=== PATIENT | male | born 1940 | race Caucasian/White ===

== ENCOUNTER 2022-06-23 15:45 | Outpatient (RCR) | payer SELFPAY | END 2023-06-14 23:00 | disposition home or self-care (01) | LOC: MOW 15:45 | PROVIDERS: PCP Internal Medicine; Visit Provider Internal Medicine | DX: Z76.0 Encounter for issue of repeat prescription (principal) | CPT/HCPCS: S5170 ==

== ENCOUNTER 2022-08-20 09:02 | Outpatient (CLI) | payer OTHER, SELFPAY | END 2022-08-20 09:03 | disposition home or self-care (01) | LOC: AMB 08-29 10:16 | PROVIDERS: PCP Internal Medicine; Visit Provider Family Medicine | DX: S79.911A Unspecified injury of right hip, initial encounter (principal); W07.XXXA Fall from chair, initial encounter; Y92.001 Dining room of unspecified non-institutional (private) residence as the place of occurrence of the external cause | CPT/HCPCS: A0425; A0429 ==

== ENCOUNTER 2022-08-20 09:52 | Inpatient (IN) | payer OTHER, SELFPAY ==
[2022-08-20] VITALS (32 sets, daily range): BP systolic 113–170; BP diastolic 64–98; PULSE 53–94; RESP 14–19; TEMP 35.9–36.6; O2SAT 79–100; BMI 26.4
--- NOTE | 2022-08-20 10:08 | ED.FALL ---
HPI - Fall General Time Seen by Provider: 10:08 Date Seen: 08/20/22 Chief Complaint: Fall/Minor Trauma Stated Complaint: Fall Time Seen by Provider: 08/20/22 10:08 Source: patient and RN notes reviewed Mode of arrival: ambulatory Limitations: no limitations History of Present Illness HPI Narrative: Patient was brought in by ambulance after a fall. He was transferring from his electric scooter to the table when he fell injuring his right hip/leg area. He states he did not hit his head, no loss of consciousness, no head pain no visual changes, no neck pain. He is not having any chest pain, no difficulty breathing, no abdominal pain. Denies any numbness tingling anywhere. Is he having pain in his right leg which he feels is probably coming from a hip source per his words. No other extremity pain at this time. He states he cannot straighten his leg without significant pain. He had declined medication in the ambulance reportedly but will take some here. Oxycodone is made him sick in the past. We will use IV fentanyl. I have discussed this with him. Related Data Home Medications Medication Instructions Recorded Confirmed furosemide 20 mg tablet (Lasix) 40 mg PO DAILY 08/20/22 08/20/22 tamsulosin 0.4 mg capsule 0.4 mg PO DAILY 08/20/22 08/20/22 Allergies Allergy/AdvReac Type Severity Reaction Status Date / Time No Known Drug Allergies Allergy Verified 08/20/22 09:58 Review of Systems Status of ROS: Reports: 10 or more systems reviewed and unremarkable except as noted in History and below PFSH PFS Social History Smoking Status: Never smoker Do you use any of these nicotine containing products: None Second hand tobacco smoke exposure: No How often do you have a drink containing alcohol: never How often do you have six or more drinks on one occasion: Never AUDIT-C Alcohol total score: 0 Non-prescribed substance use: denies use Exam Const: Vital Signs, click to edit/add: Vital Signs - 24 hr 08/20/22 09:54 08/20/22 10:49 Temperature 97.9 F Pulse Rate [Left P ulse Oximeter] 56 L Respiratory Rate 16 Blood Pressure [Le ft Upper Arm] 157/89 H Pulse Oximetry 99 95 Oxygen Delivery Me thod Room Air Documenting provider has reviewed patient's vital signs: yes Common normals: no apparent distress, average body habitus, oriented x3, no limitations and alert General appearance: cooperative, comfortable and frail appearing HENMT: Common normals: normocephalic, head/scalp atraumatic, hearing grossly normal bilaterally, external ears normal and external nose normal Head and scalp: normocephalic and atraumatic Nose: external nose normal External ear: external ears normal Mouth: moist mucous membranes abnormal (Lips are dry, mucous membranes dry) Eye: Common normals: PERRL, EOMs intact bilaterally, conjunctivae normal and no scleral icterus Conjunctiva: conjunctiva(e) normal Pupil: PERRL Neck & C-Spine: Common normals: full ROM, no lymphadenopathy, supple (Cervical spine nontender), no meningeal signs, no JVD and thyroid normal Thyroid: thyroid normal Chest: Common normals: inspection of chest normal and palpation of chest normal Resp: Common normals: normal respiratory effort, no retractions, no use of accessory muscles and clear to auscultation bilaterally Auscultation: clear to auscultation bilaterally Cardio: Common normals: no JVD, regular rate, regular rhythm, S1 normal heart sound, S2 normal heart sound, no gallops, no clicks, no murmurs and no rub Rate: regular rate Rhythm: regular rhythm Heart sounds: S1 normal and S2 normal Extremity: Other: Holding both knees flexed. There is no swelling about his right knee. He has good symmetric peripheral pulses, has some bruising about the dorsal foot and toes on the left side which he states is old. Any movement of his right extremity gives him pain which he relates back into the hip area. Does palpate with some tenderness over the right greater trochanter area. Does not have pain in his left extremity at this time. Is moving both of his upper extremities without any difficulty. Neuro: Common normals: oriented x3 Sensorium/orientation: alert Meningeal signs: no meningeal signs Course Course Hospital Course: He will be on pulse oximetry monitoring as he will be getting IV narcotics with fentanyl. We will premedicate with Zofran for nausea. He will get x-rays of his right hip and pelvis, will do portable chest as well. We will do appropriate labs, obtain an EKG. It certainly sounds like there is underlying fracture that could be surgical and will proceed in such a manner. Reevaluation(s) Reevaluation #1: Reviewed with patient that he unfortunately does have a hip fracture. I have paged Orthopedics animal waiting a call back. I have reviewed with the patient that in all likelihood this is not going to be surgically corrected today, my guess is that it will be tomorrow but ultimately the decision is with Orthopedics. Patient is having more pain, will order more fentanyl. Time: 11:55 Consultations Consultation #1: Have given Dr. Smith our hospitalist a heads up on the situation. I am still waiting to hear from Orthopedics. Time: 12:08 Consultation #2: Spoke with Varinder from orthopedics, they will plan surgery accordingly. Did review that he had muscular dystrophy and they may want to let anesthesia know. There are no beds to transfer anywhere. Time: 12:21 Vital Signs Vital signs: Initial Vital Signs Temperature 97.9 F 08/20/22 09:54 Temperature Source Temporal Artery Scan 08/20/22 09:54 Pulse Rate 56 L 08/20/22 09:54 Pulse Rhythm 08/20/22 09:54 Pulse Strength 3+ Normal 08/20/22 09:54 Respiratory Rate 16 08/20/22 09:54 Blood Pressure 157/89 H 08/20/22 09:54 Blood Pressure Mean 111 08/20/22 09:54 Pulse Oximetry 99 08/20/22 09:54 Oxygen Delivery Method 08/20/22 09:54 Vital Signs Temperature 97.9 F 08/20/22 09:54 Pulse Rate 56 L 08/20/22 09:54 Respiratory Rate 16 08/20/22 09:54 Blood Pressure 157/89 H 08/20/22 09:54 Pulse Oximetry 99 08/20/22 09:54 Oxygen Delivery Method 08/20/22 09:54 Temperature 97.9 F 08/20/22 09:54 Pulse Rate 56 L 08/20/22 09:54 Respiratory Rate 16 08/20/22 09:54 Blood Pressure 157/89 H 08/20/22 09:54 Pulse Oximetry 95 08/20/22 10:49 Oxygen Delivery Method 08/20/22 09:54 MDM - Fall Lab Data Attestation: I reviewed the patient's lab results. Labs: Lab Results 08/20/22 08/20/22 08/20/22 Range/Units 10:25 10:26 10:26 WBC 7.88 (4.50-11.00) K/uL RBC 4.50 (4.30-5.90) m/uL Hgb 13.9 (13.5-17.5) gm/dL Hct 41.8 (37.0-53.0) % MCV 93 (80-100) fL MCH 31 (26-34) pg MCHC 33 (32-36) gm/dL RDW Coeff of Ruddy 13.2 (11.5-15.5) % Plt Count 191 (140-440) K/uL Neut % (Auto) 58.0 (42.0-72.0) % Lymph % (Auto) 31.9 (20-44) % Dawson % (Auto) 8.6 (0.0-11.0) % Eos % (Auto) 1.1 (0.0-7.0) % Baso % (Auto) 0.3 (0.0-3.0) % Neut # (Auto) 4.57 (1.7-7.0) K/uL Lymph # (Auto) 2.51 (0.90-2.90) K/uL Dawson # (Auto) 0.70 (0.00-0.90) K/UL Eos # (Auto) 0.09 (0.00-0.50) K/uL Baso # (Auto) 0.02 (0.00-0.30) K/uL Abs Immat Gran (auto) 0.01 (0.00-0.30) K/uL Sodium 138 (135-149) mmol/L Potassium 3.6 (3.6-5.1) mmol/L Chloride 105 (96-114) mmol/L Carbon Dioxide 28 (20-32) mmol/L BUN 17 (7-30) mg/dL Creatinine 0.5 (0.5-1.5) mg/dL Estimated Creat Clear 65.47 Estimated GFR 102 ml/min Glucose 124 H (60-115) mg/dL Calcium 9.1 (8.4-10.6) mg/dL Total Bilirubin 0.5 (0.1-1.5) mg/dL AST 30 (12-35) U/L ALT 31 (4-50) U/L Alkaline Phosphatase 104 (40-150) U/L Total Protein 7.0 (6.0-8.3) g/dL Albumin 4.1 (3.3-5.0) g/dL SARS-CoV-2 (PCR) Negative SARS-CoV-2 (Negative) Imaging Data Chest x-ray: Attestation: I have reviewed the pertinent imaging results. My impression: I do not appreciate any acute cardiopulmonary change on this chest x-ray. He does have hardware from surgical correction of the scoliosis seen on my preliminary read. Radiologist's impression: Patient: LIO SPARROW Facility:?[facility] Patient ID:?[id number] Site Patient ID:?[id number]. Site :?[id number] Study:?XRay Chest 1 view supine-08/20/2022 11:24:06 AM Ordering Physician:Ria Garnica Final Report: INDICATION: Trauma COMPARISON: None TECHNIQUE: A single view of the chest was. FINDINGS: TUBES AND LINES: None. HEART AND MEDIASTINUM: The heart size is normal. The mediastinal contour appears normal for patient age. LUNGS AND PLEURAL SPACES: The lungs appear normal.The pleural spaces are unremarkable. OSSEOUS STRUCTURES: Postsurgical changes of the spine. Degenerative changes of the right shoulder. Abnormal left glenohumeral joint. 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 Correlate with acute symptoms in this area to exclude acute on chronic disease. IMPRESSION: 1. No evidence of active pulmonary disease. 2. No definite acute posttraumatic finding. 3. 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 Correlate with any acute symptoms in this area. Dictated by Fox Blackwell MD @ 08/20/2022 11:38:46 AM (Electronic Signature) X-ray right hip: Attestation: I have reviewed the pertinent imaging results. My impression: Acute hip fracture on my preliminary read, wait radiology over-read. Radiologist's impression: Patient: LIO SPARROW Facility:?[facility] Patient ID:?[id number] Site Patient ID:?[id number]. Site :?[id number] Study:?XRay Hip Right 2 VIEW WITH PELVIS-08/20/2022 11:24:25 AM Ordering Physician:Ria Garnica Final Report: Indication: Trauma Technique: An AP view of the pelvis was obtained as well as AP and lateral views of the right hip Comparison: None Findings: The imaging only includes the lower pelvis and the right hip. No acute fracture identified involving the pelvis as visualized. Postoperative changes extending to the sacrum. Mild bilateral hip joint osteoarthritis. Right femoral neck fracture which appears to be slightly impacted and rotated. Impression: Right femoral neck fracture. Dictated by Fox Blackwell MD @ 08/20/2022 11:40:12 AM (Electronic Signature) ECG Data Attestation: I personally reviewed and interpreted this ECG as follows: (Sinus bradycardia with first-degree AV block, 52 beats per minute. QT corrected 472 milliseconds. Significant artifact in V1 and V2.) Critical Care Time Critical Care Time Critical Care Time: No Discharge Plan Discharge Clinical Impression: Fracture of right hip, Fall Patient Disposition: Admitted As Inpatient Condition: Stable Prescriptions: No Action furosemide [Lasix] 20 mg tablet 40 mg PO DAILY tamsulosin 0.4 mg capsule 0.4 mg PO DAILY Follow Up/Referrals: Carlos Cardenas MD [Primary Care Provider] -
--- NOTE | 2022-08-20 10:12 | CRLHL7_ITS ---
For Patients: As a result of the Cures Act, medical imaging exams and procedure reports are released immediately into your electronic medical record. You may view this report before your referring provider. If you have questions, please contact your health care provider. Indication: Trauma Technique: An AP view of the pelvis was obtained as well as AP and lateral views of the right hip Comparison: None Findings: The imaging only includes the lower pelvis and the right hip. No acute fracture identified involving the pelvis as visualized. Postoperative changes extending to the sacrum. Mild bilateral hip joint osteoarthritis. Right femoral neck fracture which appears to be slightly impacted and rotated. Impression: Right femoral neck fracture. Dictated by Fox Blackwell MD @ 08/20/2022 11:40:12 AM (Electronically Signed)
--- NOTE | 2022-08-20 10:13 | CRLHL7_ITS ---
For Patients: As a result of the Century Cures Act, medical imaging exams and procedure reports are released immediately into your electronic medical record. You may view this report before your referring provider. If you have questions, please contact your health care provider. INDICATION: Trauma COMPARISON: None TECHNIQUE: A single view of the chest was. FINDINGS: TUBES AND LINES: None. HEART AND MEDIASTINUM: The heart size is normal. The mediastinal contour appears normal for patient age. LUNGS AND PLEURAL SPACES: The lungs appear normal.The pleural spaces are unremarkable. OSSEOUS STRUCTURES: Postsurgical changes of the spine. Degenerative changes of the right shoulder. Abnormal left glenohumeral joint. 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 Correlate with acute symptoms in this area to exclude acute on chronic disease. IMPRESSION: 1. No evidence of active pulmonary disease. 2. No definite acute posttraumatic finding. 3. 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 Correlate with any acute symptoms in this area. Dictated by Fox Blackwell MD @ 08/20/2022 11:38:46 AM (Electronically Signed)
[2022-08-20 10:36] LABS: Basophils Absolute Auto 0.02 K/uL (0.00-0.30); Basophils Percent Auto 0.3 % (0.0-3.0); Eosinophils Absolute Auto 0.09 K/uL (0.00-0.50); Eosinophils Percent Auto 1.1 % (0.0-7.0); Hematocrit 41.8 % (37.0-53.0); Hemoglobin* 13.9 gm/dL (13.5-17.5); Immature Granulocytes Abs Auto 0.01 K/uL (0.00-0.30); Lymphocytes Absolute Auto 2.51 K/uL (0.90-2.90); Lymphocytes Percent Auto 31.9 % (20-44); Mean Corpuscular HGB Conc 33 gm/dL (32-36); Mean Corpuscular Hemoglobin 31 pg (26-34); Mean Corpuscular Volume 93 fL (80-100); Monocytes Percent Auto 8.6 % (0.0-11.0); Neutrophils Absolute Auto 4.57 K/uL (1.7-7.0); Platelet Count* 191 K/uL (140-440); RDW Coefficient of Variation % 13.2 % (11.5-15.5); White Blood Count* 7.88 K/uL (4.50-11.00)
[2022-08-20 10:38] LABS: Slide Review Reflex No
[2022-08-20] MEDS: fentaNYL 100 MCG/2 ML inj 50 MCG IVP ×2 (10:39→12:18)
[2022-08-20] MEDS: ONDANSETRON 2 MG/ML inj 4 MG IVP (10:39)
[2022-08-20 11:01] LABS: Albumin* 4.1 g/dL (3.3-5.0)
[2022-08-20 11:02] LABS: Chloride* 105 mmol/L (96-114); Potassium* 3.6 mmol/L (3.6-5.1); Sodium* 138 mmol/L (135-149)
[2022-08-20 11:04] LABS: Aspartate Amino Transferase* 30 U/L (12-35); Bilirubin Total* 0.5 mg/dL (0.1-1.5); Carbon Dioxide* 28 mmol/L (20-32); Creatinine* 0.5 mg/dL (0.5-1.5); Est. Creatinine Clearance* 65.47; Estimated Glomerular Filt Rate 102 ml/min
[2022-08-20 11:05] LABS: Alanine Aminotransferase* 31 U/L (4-50); Alkaline Phosphatase* 104 U/L (40-150); Blood Urea Nitrogen* 17 mg/dL (7-30); Calcium* 9.1 mg/dL (8.4-10.6); Glucose* 124 mg/dL (60-115)
[2022-08-20 11:12] LABS: SARS PCR* Negative SARS-CoV-2 (Negative)
--- NOTE | 2022-08-20 12:26 | ED.NURSE ---
Assisted patient to make phone call home.
[2022-08-20] MEDS: HYDROmorphone 0.5 mg/0.5 ml inj IVP ×2 (13:14→14:52)
[2022-08-20] MEDS: LACTATED RINGERS 1000 ML 1,000 ML 500 ML IV (13:21)
[2022-08-20] MEDS: lidocaine HCL 2 % JELLY (TOP) STERILE 6 ML UR (13:21)
[2022-08-20 13:50] LABS: Appearance Urine Clear (Clear); Bilirubin Urine Negative (Negative); Blood Urine Negative (Negative); Color Urine Yellow (Yellow); Glucose Urine Negative (Negative); Ketones Urine Negative (Negative); Leukocyte Esterase Urine Negative (Negative); Nitrite Urine Negative (Negative); Protein Urine Negative (Negative); Specific Gravity Urine 1.025 (1.000-1.030); Urobilinogen Urine 0.2 (0.2-1.0)
[2022-08-20 13:53] LABS: Amorphous Sediment Urine Few; Other Sediment Urine 0; RBC Urine 0-2 (0-2); WBC Urine 0-2 (0-5)
--- NOTE | 2022-08-20 14:38 | P.IMHP_ITS ---
Hospitalist- H&P: HPI History of Present Illness Date Seen: 08/20/22 Chief complaint: Fall Narrative: Roberto Jane is a 82 year old male with muscular dystrophy who presents to the emergency room after a fall this morning. Patient reports he was in his usual state of health when he got up this morning. He was going to breakfast. He had had a cup of coffee, some prune juice and a couple small crackers. He was transferring from his electric wheelchair to sit for breakfast and he fell. He injured his right hip. He is found to have a right femoral neck fracture. He denies any other injury. No loss of consciousness or head injury. Patient has advanced muscular dystrophy. He is able to transfer from chair to chair and bed to chair. He cannot stand on his legs however. He estimates he spends about 90% of his time in his electric wheelchair. He reports otherwise generally feeling healthy and having no other health concerns. Review of Systems Narrative: No other injury, no recent illness. [facility] Medical History (Updated 08/20/22 @ 14:51 by Torres Smith MD) Bladder cancer BPH (benign prostatic hyperplasia) Lower extremity edema Muscular dystrophy Surgical History (Updated 08/20/22 @ 14:46 by Torres Smith MD) History of lumbosacral spine surgery History of nasal septoplasty Social History (Updated 08/20/22 @ 14:47 by Torres Smith MD) Narrative: He lives with his in independent apartment on the [facility]. He does not smoke. History of daily alcohol intake but less than that more recently. 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 Code status is DNR. Smoking Status: Never smoker Do you use any of these nicotine containing products: None Second hand tobacco smoke exposure: No How often do you have a drink containing alcohol: never How often do you have six or more drinks on one occasion: Never AUDIT-C Alcohol total score: 0 Non-prescribed substance use: denies use Meds Home Medications and Allergies Home Medications Medication Instructions Recorded Confirmed Type furosemide 20 mg tablet (Lasix) 40 mg PO DAILY 08/20/22 08/20/22 History tamsulosin 0.4 mg capsule 0.4 mg PO DAILY 08/20/22 08/20/22 History Allergies Allergy/AdvReac Type Severity Reaction Status Date / Time No Known Drug Allergies Allergy Verified 08/20/22 09:58 Exam Narrative: Exam Narrative: He is alert and appears in no distress. He gives his own history. Eyes are normal. Oropharynx with dry mucous membranes. Neck is supple without mass or a denopathy. Respirations are clear to auscultation. Cardiovascular: S1, S2, regular rate and rhythm. No murmur gallop or rub. Abdomen: Bowel sounds active. Abdomen is soft without tenderness or mass. Extremities with intact pulses. No significant edema. No marked malalignment of his lower extremities. Const: Vital Signs, click to edit/add: Vital Signs - 24 hr 08/20/22 09:54 08/20/22 10:49 08/20/22 09:54 Temperature 97.9 F 97.9 F Pulse Rate Pulse Rate [Left P ulse Oximeter] 56 L 56 L Respiratory Rate 16 16 Blood Pressure Blood Pressure [Le ft Upper Arm] 157/89 H 157/89 H Pulse Oximetry 99 95 [facility] 08/20/22 10:48 08/20/22 11:24 08/20/22 11:30 Temperature Pulse Rate 54 L 53 L 56 L Pulse Rate [Left P ulse Oximeter] Respiratory Rate Blood Pressure Blood Pressure [Le ft Upper Arm] Pulse Oximetry 95 97 99 Oxygen Delivery Me od 08/20/22 11:33 08/20/22 12:00 08/20/22 12:03 Temperature Pulse Rate 56 L 54 L Pulse Rate [Left P ulse Oximeter] Respiratory Rate Blood Pressure 163/83 H 166/83 H Blood Pressure [Le ft Upper Arm] Pulse Oximetry 100 98 Oxygen Delivery Hi thod 08/20/22 12:41 08/20/22 13:04 08/20/22 13:09 Temperature Pulse Rate 93 58 L Pulse Rate [Left P ulse Oximeter] Respiratory Rate Blood Pressure 168/82 H Blood Pressure [Le ft Upper Arm] Pulse Oximetry 79 L 97 Oxygen Delivery Hi thod 08/20/22 13:30 08/20/22 13:33 08/20/22 09:59 Temperature Pulse Rate 57 L 61 Pulse Rate [Left P ulse Oximeter] Respiratory Rate Blood Pressure 170/82 H Blood Pressure [Le ft Upper Arm] 167/83 H Pulse Oximetry 97 97 [facility] 08/20/[facility] 10:30 Temperature Pulse Rate Pulse Rate [Left P ulse Oximeter] Respiratory Rate Blood Pressure Blood Pressure [Le ft Upper Arm] 164/73 H Pulse Oximetry Oxygen Delivery Me thod Documenting provider has reviewed patient's vital signs: yes Hospitalist - H&P: Result Labs Labs: Short CBC 08/20/22 Range/Units 10:26 WBC 7.88 (4.50-11.00) K/uL Hgb 13.9 (13.5-17.5) gm/dL Hct 41.8 (37.0-53.0) % Plt Count 191 (140-440) K/uL BMP 08/20/22 10:26 Sodium 138 Potassium 3.6 Chloride 105 Carbon Dioxide 28 BUN 17 Creatinine 0.5 Glucose 124 H Calcium 9.1 Liver Function 08/20/22 Range/Units 10:26 Total Bilirubin 0.5 (0.1-1.5) mg/dL AST 30 (12-35) U/L ALT 31 (4-50) U/L Alkaline Phosphatase 104 (40-150) U/L Albumin 4.1 (3.3-5.0) g/dL Urine 08/20/22 Range/Units 13:35 Urine Color Yellow (Yellow) Urine Appearance Clear (Clear) Urine pH 6.0 (5.0-8.5) Ur Specific [place] 1.025 (1.000-1.030) Urine Protein Negative (Negative) Urine Glucose (UA) Negative (Negative) Assessment and Plan Assessment and plan (1) Fracture of right hip: Problem comment: Pending surgical consult and surgery. No major contraindication to Urgent hip surgery with any type anesthesia Status: Acute (2) Muscular dystrophy: Problem comment: Moderately disabled by his muscular dystrophy. Will need to adapt to this with our rehab plan. Status: Acute (3) BPH (benign prostatic hyperplasia): Problem comment: Patient reports history of urinary retention with previous surgeries. Will place a Rob catheter now and likely will need it for at least a day or 2 after surgery Status: Acute Plan Admit for surgery and recovery. Total time spent today is 70 minutes, 40 minutes in coordination of care and discussing with patient and other providers preop and postop management
--- NOTE | 2022-08-20 15:15 | CRLHL7_ITS ---
For Patients: As a result of the Cures Act, medical imaging exams and procedure reports are released immediately into your electronic medical record. You may view this report before your referring provider. If you have questions, please contact your health care provider. Indication: Bipolar hip Technique: Single fluoroscopic image Comparison: No comparison Findings: Right hip arthroplasty appears in satisfactory position. 29 seconds fluoro time Dictated by Violet Colon MD @ 08/20/2022 7:23:23 PM (Electronically Signed)
[2022-08-20] MEDS: LACTATED RINGERS 1000 ML 1,000 ML 125 ML IV ×2 (15:30→19:28)
[2022-08-20] MEDS: CEFAZOLIN 2 GM in 0.9 % SODIUM CHLORIDE Mini-bag 100 ML IVPB (16:00)
[2022-08-20] MEDS: TRANEXAMIC ACID 100 MG/ML INJ 1000 MG IV (16:05)
--- NOTE | 2022-08-20 16:56 | W.PM.NB ---
Nerve Block Nerve Block Date Seen: 08/20/22 Type of block requested by surgeon for post-operative analgesia: DELANEY/LFCN Side: right Time out performed: Yes Verification of patient name: Yes Verification of date of : Yes Site marking: site marked Name of person performing procedure: Chris Continuous monitoring Was continuous monitoring of O2 sat, B/P, quality assurance monitor chassis, recorded every 15 minutes?: Yes Procedure Checklist: sterile prep, needles and gloves Ultrasound guided. Images saved: Yes Medications given in 5ml increments after negative aspiration: Ropivicaine %: 0.5 mL: 30 Needle gauge: 20 Decadron (mg): 10 Precedex (mcg): 25 Patient tolerated procedure well: Yes Additional comments: Needle noted below psoas tendon needle noted adjacent to LFCN Block Charges Block Charge (with Pro Fee): Other Periph Nerve Block Use of Ultrasound Machine for Block: Yes- US Guidance/pain block
--- NOTE | 2022-08-20 18:10 | P.ORCN_ITS ---
History of Present Illness HPI Date Seen: 08/20/22 Chief complaint: Fall Narrative: Dr. Smith has requested orthopedic consultation for right hip fracture. The patient is an 82-year-old limited ambulator secondary to muscular dystrophy. He spends most of his time in a chair. He is able to do some transfers. He fell landing on his right side, sustaining a displaced femoral neck fracture. He has never injured this hip or had surgery previously. Review of Systems Narrative: The patient denies: Fever, night sweats, shaking chills, nausea, vomiting, diarrhea, chest pain, chest pressure, shortness of breath, no rash, no change in hearing or vision, no issues with bleeding or clotting [facility] Medical History (Updated 08/20/22 @ 14:51 by Torres Smith MD) Bladder cancer BPH (benign prostatic hyperplasia) Lower extremity edema Muscular dystrophy Surgical History (Updated 08/20/22 @ 14:46 by Torres Smith MD) History of lumbosacral spine surgery History of nasal septoplasty Social History (Updated 08/20/22 @ 14:47 by Torres Smith MD) Narrative: He lives with his in independent apartment on the [facility]. He does not smoke. History of daily alcohol intake but less than that more recently. is healthcare power of county attorney. Code status is DNR. Smoking Status: Never smoker Do you use any of these nicotine containing products: None Second hand tobacco smoke exposure: No How often do you have a drink containing alcohol: never How often do you have six or more drinks on one occasion: Never AUDIT-C Alcohol total score: 0 Non-prescribed substance use: denies use Meds Home Medications and Allergies Home Medications Medication Instructions Recorded Confirmed Type furosemide 20 mg tablet (Lasix) 40 mg PO DAILY 08/20/22 08/20/22 History tamsulosin 0.4 mg capsule 0.4 mg PO DAILY 08/20/22 08/20/22 History Allergies Allergy/AdvReac Type Severity Reaction Status Date / Time No Known Drug Allergies Allergy Verified 08/20/22 09:58 Ortho Exam Narrative Exam Narrative: The patient is alert and oriented x3, in no acute distress, they are able to converse in a normal speaking voice without obvious hearing loss and with nonlabored breathing. The patient is examined supine on the hospital cart, in the emergency department. The skin about the right hip is intact and normal. He has some dorsiflexion and plantar flexion to the right ankle. Sensation is grossly intact. Const Vital Signs, click to edit/add: Vital Signs - 24 hr 08/20/22 09:54 08/20/22 10:49 08/20/22 09:54 Temperature 97.9 F 97.9 F Pulse Rate Pulse Rate [Left Pulse Oximeter] 56 L 56 L Respiratory Rate 16 16 Blood Pressure Blood Pressure [Left Upper Arm] 157/89 H 157/89 H Pulse Oximetry 99 95 97 Oxygen Delivery Method Room Air Room Air 08/20/22 10:48 08/20/22 11:24 08/20/22 11:30 Temperature Pulse Rate 54 L 53 L 56 L Pulse Rate [Left Pulse Oximeter] Respiratory Rate Blood Pressure Blood Pressure [Left Upper Arm] Pulse Oximetry 95 97 99 Oxygen Delivery Method 08/20/22 11:33 08/20/22 12:00 08/20/22 12:03 Temperature Pulse Rate 56 L 54 L Pulse Rate [Left Pulse Oximeter] Respiratory Rate Blood Pressure 163/83 H 166/83 H Blood Pressure [Left Upper Arm] Pulse Oximetry 100 98 Oxygen Delivery Method 08/20/22 12:41 08/20/22 13:04 08/20/22 13:09 Temperature Pulse Rate 93 58 L Pulse Rate [Left Pulse Oximeter] Respiratory Rate Blood Pressure 168/82 H Blood Pressure [Left Upper Arm] Pulse Oximetry 79 L 97 Oxygen Delivery Method 08/20/22 13:30 08/20/22 13:33 08/20/22 09:59 Temperature Pulse Rate 57 L 61 Pulse Rate [Left Pulse Oximeter] Respiratory Rate Blood Pressure 170/82 H Blood Pressure [Left Upper Arm] 167/83 H Pulse Oximetry 97 97 Oxygen Delivery Method 08/20/22 10:30 Temperature Pulse Rate Pulse Rate [Left Pulse Oximeter] Respiratory Rate Blood Pressure Blood Pressure [Left Upper Arm] 164/73 H Pulse Oximetry Oxygen Delivery Method Results Labs Labs: Laboratory Results - last 48 hr 08/20/22 08/20/22 08/20/22 10:25 10:26 10:26 WBC 7.88 RBC 4.50 Hgb 13.9 Hct 41.8 MCV 93 MCH 31 MCHC 33 RDW Coeff of Ruddy 13.2 Plt Count 191 Neut % (Auto) 58.0 Lymph % (Auto) 31.9 [place] % (Auto) 8.6 Eos % (Auto) 1.1 Baso % (Auto) 0.3 Neut # (Auto) 4.57 Lymph # (Auto) 2.51 [place] # (Auto) 0.70 Eos # (Auto) 0.09 Baso # (Auto) 0.02 Abs Immat Gran (auto) 0.01 Sodium 138 Potassium 3.6 Chloride 105 Carbon Dioxide 28 BUN 17 Creatinine 0.5 Estimated Creat Clear 65.47 Estimated GFR 102 Glucose 124 H Calcium 9.1 Total Bilirubin 0.5 AST 30 ALT 31 Alkaline Phosphatase 104 Total Protein 7.0 Albumin 4.1 Urine Color Urine Appearance Urine pH Ur Specific [place] Urine Protein Urine Glucose (UA) Urine Ketones Urine Blood Urine Nitrite Urine Bilirubin Urine Urobilinogen Ur Leukocyte Esterase Urine RBC Urine WBC Ur Squamous Epith Cells Amorphous Sediment Other Sediment Urine Bacteria SARS-CoV-2 (PCR) Negative SARS-CoV-2 08/20/22 13:35 WBC RBC Hgb Hct MCV MCH MCHC RDW Coeff of Ruddy Plt Count Neut % (Auto) Lymph % (Auto) [place] % (Auto) Eos % (Auto) Baso % (Auto) Neut # (Auto) Lymph # (Auto) [place] # (Auto) Eos # (Auto) Baso # (Auto) Abs Immat Gran (auto) Sodium Potassium Chloride Carbon Dioxide BUN Creatinine Estimated Creat Clear Estimated GFR Glucose Calcium Total Bilirubin AST ALT Alkaline Phosphatase Total Protein Albumin Urine Color Yellow Urine Appearance Clear Urine pH 6.0 Ur Specific [place] 1.025 Urine Protein Negative Urine Glucose (UA) Negative Urine Ketones Negative Urine Blood Negative Urine Nitrite Negative Urine Bilirubin Negative Urine Urobilinogen 0.2 Ur Leukocyte Esterase Negative Urine RBC 0-2 Urine WBC 0-2 Ur Squamous Epith Cells None Amorphous Sediment Few A Other Sediment 0 Urine Bacteria None SARS-CoV-2 (PCR) Diagnostic results Additional Comments: An AP pelvis, AP and cross-table lateral view of the right hip show a displaced right femoral neck fracture. There is no obvious pathologic lesion. There is no pre-existing hip joint arthritis. Assessment and Plan Assessment and plan (1) Fracture of right hip: Problem comment: Pending surgical consult and surgery. No major contraindication to Urgent hip surgery with any type anesthesia Status: Acute Total time spent: Total time spent is greater than 50% in coordination of care (as documented) at patient's floor/unit and/or counseling patient: (2) Muscular dystrophy: Problem comment: Moderately disabled by his muscular dystrophy. Will need to adapt to this with our rehab plan. Status: Acute Total time spent: Total time spent is greater than 50% in coordination of care (as documented) at patient's floor/unit and/or counseling patient: (3) BPH (benign prostatic hyperplasia): Problem comment: Patient reports history of urinary retention with previous surgeries. Will place a Rob catheter now and likely will need it for at least a day or 2 after surgery Status: Acute Total time spent: Total time spent is greater than 50% in coordination of care (as documented) at patient's floor/unit and/or counseling patient: Plan Assessment: Displaced right femoral neck fracture in an 82-year-old, limited ambulator with muscular dystrophy Plan: I told the patient that his injury is best treated with bipolar hemiarthroplasty. He has been medically cleared for surgery, therefore we will plan to take him to the operating room shortly.
--- NOTE | 2022-08-20 18:13 | P.ORPRC_ITS ---
Procedure Note Date of procedure: 08/20/22 Procedure: SURGEON: Humberto Molina MD HUMAN INSIGHTS LEAD ADS MARKETING: Re Murray PA-C PREOPERATIVE DIAGNOSIS: Right hip displaced femoral neck fracture POSTOPERATIVE DIAGNOSIS: Right hip displaced femoral neck fracture NAME OF OPERATION: Right hip cemented bipolar hemiarthroplasty IMPLANTS: 1. [place] cemented # 6 standard collared cemented stem 2. 28 + 8.5 cobalt chrome femoral head 3. 55 mm bipolar component ANESTHESIA: General ESTIMATED BLOOD LOSS: 100 cc COMPLICATIONS: None SPECIMENS: None DRAINS: None PREOPERATIVE ANTIBIOTICS: Ancef 2 g INDICATIONS: The patient is a 82-year-old male who fell today sustaining a right hip femoral neck fracture. The patient was admitted for workup and management. They have been medically cleared for surgery. Operative intervention was recommended. The risks, benefits and expected outcomes were discussed in detail. These included but were not limited to: Infection, bleeding, injury to blood vessel or nerve, venous thromboembolism. All questions were answered to their satisfaction. Use of an assistant refinery operator was necessary throughout the case for patient positioning and safety, soft tissue retraction and closure. PROCEDURE: General anesthesia was administered. The patient was placed supine on the [place] table. General anesthesia was administered. The assistant refinery operator made sure the patient was properly positioned. The right hip was prepped and draped in the usual sterile fashion. The image intensifier was brought in for a perfect AP pelvis and a perfect double tear drop AP view of each hip which were used for intraoperative templating with our fluoroscopic guide. An oblique incision was made 3 cm distal and 3 cm lateral to the anterior superior iliac spine. The assistant refinery operator retracted the soft tissues to protect them. Subcutaneous dissection was taken with electrocautery to the superficial fascia. The fascia was divided in line with the incision. Blunt dissection was carried medially to the tensor fascia nikki and sartorius interval. Deep dissection was carried with electrocautery. The circumflex vessels were cauterized and divided. The capsule was exposed and then divided in a T- fashion, tagged with #1 Ethibond sutures. Retractors were placed in the joint, held by the assistant refinery operator. The corkscrew was placed in the femoral head. The neck cut was made in the subcapital region. We made a second neck cut more distal. The napkin ring of bone was removed. The femoral head was removed intact. The limb was placed in 140 degrees of external rotation, maximum extension and adduction. A significant amount of time was spent releasing the capsule to allow us to deliver the femur into the wound and complete the femoral side safely. Retractors were held by the assistant refinery operator throughout the femoral preparation. The drawing box tender and canal finder were used. Broaches were used to a stable size. The calcar reamer was used. Trial components were placed. The hip was reduced and was found to be stable with appropriate soft tissue tension. Length and offset had been nicely restored using the image intensifier and our fluoroscopic guide. Trial components removed. The cement restrictor was placed. The canal was irrigated with pulse lavage then thoroughly dried. Cement was placed with the cement gun and hand pressurized. The # 6 [place] cemented stem was placed in the canal. The 28 mm + 8.5 cobalt chrome femoral head and the 55 mm bipolar component were placed. The hip was reduced and again was found to be stable with appropriate soft tissue tension. Leg lengths appear equal. The assistant refinery operator irrigated the wound with 3 liters of normal saline via pulse lavage. The assistant refinery operator repaired the anterior capsule with a #1 Vicryl and our previously placed Ethibond sutures. The assistant refinery operator closed the fascia over the tensor fascia nikki with a #1 PDO Stratafix, subcutaneous tissues with 2-0 Vicryl, skin with a running 3-0 Stratafix and glue. A dry dressing was applied by the assistant refinery operator. Sponge and needle counts were correct x 2. The patient tolerated the procedure well; there were no apparent complications. They were awakened and extubated in the operating room, sent to the Post-Anesthesia Care Unit in satisfactory condition. PLAN: 1. The patient will be mobilized with physical therapy, weight-bearing as tolerates 2. Xarelto x 5 days then aspirin x 30 days will be used for DVT prophylaxis 3. The patient will be discharged once medically appropriate
--- NOTE | 2022-08-20 18:37 | W.ANESCHARGE ---
Anesthesia Charges Start Date/Time Anesthesia Start Date: 08/20/22 Anesthesia Start Time: 15:37 Stop Date/Time Anesthesia Stop Date: 08/20/22 Anesthesia Stop Time: 18:34 Summary Emergency: No Extremes of Age: Over 71-CPT 56703
[2022-08-20] MEDS: fentaNYL 100 MCG/2 ML inj 25 MCG IVP (18:53)
--- NOTE | 2022-08-20 19:21 | CRLHL7_ITS ---
For Patients: As a result of the Cures Act, medical imaging exams and procedure reports are released immediately into your electronic medical record. You may view this report before your referring provider. If you have questions, please contact your health care provider. Indication: Postop Technique: AP pelvis right hip views Comparison: No comparison Findings: Right hip arthroplasty in satisfactory position. Normal alignment postoperative soft tissue gas and swelling. No hardware complications. Dictated by Violet Colon MD @ 08/21/2022 8:48:18 AM (Electronically Signed)
--- NOTE | 2022-08-20 19:25 | SUR.PHASEI ---
patient met discharge criteria per anesthesia
[2022-08-20] MEDS: ACETAMINOPHEN 325 MG TABLET 650 MG PO (21:34)
[2022-08-20] MEDS: SENNOSIDES 1 TAB TABLET 2 TAB PO (21:34)
[2022-08-20] MEDS: LACTATED RINGERS 1000 ML 1,000 ML 75 ML IV (21:45)
[2022-08-21] VITALS (7 sets, daily range): BP systolic 110–161; BP diastolic 53–70; PULSE 62–78; RESP 16–20; TEMP 36.5–37.3; O2SAT 89–94
[2022-08-21] MEDS: CEFAZOLIN 2 GM in 0.9 % SODIUM CHLORIDE Mini-bag 100 ML IVPB ×3 (00:36→16:10)
[2022-08-21] MEDS: ACETAMINOPHEN 325 MG TABLET 650 MG PO ×4 (01:35→20:27)
[2022-08-21 06:42] LABS: Hematocrit 38.9 % (37.0-53.0); Hemoglobin* 12.9 gm/dL (13.5-17.5); Mean Corpuscular HGB Conc 33 gm/dL (32-36); Mean Corpuscular Hemoglobin 31 pg (26-34); Mean Corpuscular Volume 94 fL (80-100); Platelet Count* 177 K/uL (140-440); Red Blood Count 4.16 m/uL (4.30-5.90)
[2022-08-21 06:44] LABS: Slide Review Reflex No
--- NOTE | 2022-08-21 06:48 | PC.NURSE ---
pleasant and cooperative. No c/o pain, pt states he still feels ?numb?, able to wiggle toes. Rob patent and draining, 650mL urine output this shift. ? Reddened [place]area, Nystatin ordered, House Sup unable to find in pharmacy. Pt states he has cream at home he applies when it flares up, he is unsure of the name, he said he will have his bring it in. ? Pt requiring 1L O2 while sleeping to maintain sats >88%.? Dressing to right hip CDI, active ice on. ?
[2022-08-21 06:58] LABS: Potassium* 4.1 mmol/L (3.6-5.1); Sodium* 137 mmol/L (135-149)
[2022-08-21 07:01] LABS: Creatinine* 0.5 mg/dL (0.5-1.5); Est. Creatinine Clearance* 65.47; Estimated Glomerular Filt Rate 102 ml/min
[2022-08-21 07:02] LABS: Blood Urea Nitrogen* 17 mg/dL (7-30)
--- NOTE | 2022-08-21 08:52 | P.ORPN_ITS ---
Subjective Subjective Time Seen by Provider: 08:30 Date Seen: 08/21/22 Principal diagnosis: Day 1 s/p right hip bipolar hemiarthroplasty Interval history: Roberto is doing well this morning and is resting comfortably in bed. He complains of right lower extremity weakness and right hip numbness. Denies right hip pain; pain is well managed with ice, Oxycodone and Tylenol PRN. Denies: fever, chills, chest pain, SOB and numbness/tingling is his feet. Patient was seen by PT this morning however explains they will be returning later today and has not yet been up and moving. Patient's white board states he is non- weightbearing, however according to Dr. Molina Roberto may weightbear as tolerated. Patient has not yet had a bowel movement and reports no flatulence yet. Patient has a strong appetite. *Prior to surgery, Roberto spends 90% of his time in his wheelchair because of his muscular dystrophy. He is able to transfer with assistance bed-chair and chair-chair. Also prior to surgery, Roberto explains he was able to flex his right knee. His complaint of right knee/LE weakness is new since his surgery. Ortho Exam Narrative Exam Narrative: Incision/Dressing: Dressing appears clean and dry. No drainage present. Mepilex intact. Right hip appears moderately swollen but supple with no obvious erythema, fluctuance or excessive warmth. Ecchymosis present. Warmth around the wound is appropriate. Ice is being utilized as needed. CMS: Intact distally with 2+ Dorsalis pedis and Posterior Tibial pulses. 5/5 motor strength dorsal and plantar flexion. Confirmed sensation distally. Patient is unable to straight leg raise. Knee ROM: 0-10 degrees. Calf: Bilateral calves are supple, with no swelling, pain, tenderness, erythema, discoloration or coolness to the touch. Constitutional: Patient is alert and oriented x3. Patient is in no acute distress and converses without labored breathing. Patient is able to make decisions and demonstrates good insight. Patient is pleasant and cooperative. Affect is full range and appropriate for the circumstances. Const Vital Signs, click to edit/add: Vital Signs - 24 hr 08/20/22 09:54 08/20/22 10:49 08/20/22 09:54 Temperature 97.9 F 97.9 F Pulse Rate Pulse Rate [Left Pulse Oximeter] 56 L 56 L Pulse Rate [Right Pulse Oximeter] Respiratory Rate 16 16 Blood Pressure Blood Pressure [Left Arm] Blood Pressure [Left Upper Arm] 157/89 H 157/89 H Pulse Oximetry 99 95 97 Oxygen Delivery Method Room Air Room Air Oxygen Flow Rate 08/20/22 10:48 08/20/22 11:24 08/20/22 11:30 Temperature Pulse Rate 54 L 53 L 56 L Pulse Rate [Left Pulse Oximeter] Pulse Rate [Right Pulse Oximeter] Respiratory Rate Blood Pressure Blood Pressure [Left Arm] Blood Pressure [Left Upper Arm] Pulse Oximetry 95 97 99 Oxygen Delivery Method Oxygen Flow Rate 08/20/22 11:33 08/20/22 12:00 08/20/22 12:03 Temperature Pulse Rate 56 L 54 L Pulse Rate [Left Pulse Oximeter] Pulse Rate [Right Pulse Oximeter] Respiratory Rate Blood Pressure 163/83 H 166/83 H Blood Pressure [Left Arm] Blood Pressure [Left Upper Arm] Pulse Oximetry 100 98 Oxygen Delivery Method Oxygen Flow Rate 08/20/22 12:41 08/20/22 13:04 08/20/22 13:09 Temperature Pulse Rate 93 58 L Pulse Rate [Left Pulse Oximeter] Pulse Rate [Right Pulse Oximeter] Respiratory Rate Blood Pressure 168/82 H Blood Pressure [Left Arm] Blood Pressure [Left Upper Arm] Pulse Oximetry 79 L 97 Oxygen Delivery Method Oxygen Flow Rate 08/20/22 13:30 08/20/22 13:33 08/20/22 09:59 Temperature Pulse Rate 57 L 61 Pulse Rate [Left Pulse Oximeter] Pulse Rate [Right Pulse Oximeter] Respiratory Rate Blood Pressure 170/82 H Blood Pressure [Left Arm] Blood Pressure [Left Upper Arm] 167/83 H Pulse Oximetry 97 97 Oxygen Delivery Method Oxygen Flow Rate 08/20/22 10:30 08/20/22 18:35 08/20/22 18:40 Temperature 97.5 F L 97.5 F L Pulse Rate 71 69 Pulse Rate [Left Pulse Oximeter] Pulse Rate [Right Pulse Oximeter] Respiratory Rate 19 19 Blood Pressure 131/86 143/86 H Blood Pressure [Left Arm] Blood Pressure [Left Upper Arm] 164/73 H Pulse Oximetry 100 100 Oxygen Delivery Method OxyMask Oxygen Flow Rate 6 08/20/22 18:45 08/20/22 18:50 08/20/22 18:55 Temperature 97.5 F L 97.5 F L 97.5 F L Pulse Rate 67 65 60 Pulse Rate [Left Pulse Oximeter] Pulse Rate [Right Pulse Oximeter] Respiratory Rate 16 16 16 Blood Pressure 146/78 H 151/82 H Blood Pressure [Left Arm] Blood Pressure [Left Upper Arm] Pulse Oximetry 100 100 98 Oxygen Delivery Method OxyMask OxyMask Room Air Oxygen Flow Rate 6 6 08/20/22 19:00 08/20/22 19:05 08/20/22 19:16 Temperature 97.5 F L 97.2 F L 96.7 F L Pulse Rate 60 68 63 Pulse Rate [Left Pulse Oximeter] Pulse Rate [Right Pulse Oximeter] Respiratory Rate 16 16 14 Blood Pressure 158/82 H 143/70 H Blood Pressure [Left Arm] Blood Pressure [Left Upper Arm] Pulse Oximetry 94 94 Oxygen Delivery Method Room Air Room Air Room Air Oxygen Flow Rate 6 08/20/22 19:22 08/20/22 19:30 08/20/22 19:45 Temperature 96.7 F L 96.7 F L 96.9 F L Pulse Rate Pulse Rate [Left Pulse Oximeter] Pulse Rate [Right Pulse Oximeter] Respiratory Rate 14 14 14 Blood Pressure Blood Pressure [Left Arm] 156/98 H 161/75 H 137/86 Blood Pressure [Left Upper Arm] Pulse Oximetry 92 93 94 Oxygen Delivery Method Room Air Room Air Room Air Oxygen Flow Rate 2 2 2 08/20/22 20:00 08/20/22 20:30 08/20/22 22:27 Temperature 96.9 F L 96.9 F L Pulse Rate Pulse Rate [Left Pulse Oximeter] Pulse Rate [Right Pulse Oximeter] 94 Respiratory Rate 14 14 14 Blood Pressure Blood Pressure [Left Arm] 154/76 H 132/72 Blood Pressure [Left Upper Arm] Pulse Oximetry 95 94 Oxygen Delivery Method Room Air Room Air Oxygen Flow Rate 2 2 08/21/22 03:00 08/20/22 21:00 08/20/22 22:00 Temperature 97.7 F Pulse Rate Pulse Rate [Left Pulse Oximeter] Pulse Rate [Right Pulse Oximeter] 65 66 Respiratory Rate 16 16 16 Blood Pressure Blood Pressure [Left Arm] 110/62 122/67 143/75 H Blood Pressure [Left Upper Arm] Pulse Oximetry 94 94 90 Oxygen Delivery Method Room Air Room Air Room Air Oxygen Flow Rate 1 1 1 08/20/22 23:00 08/21/22 00:00 Temperature 97.6 F 97.7 F Pulse Rate Pulse Rate [Left Pulse Oximeter] Pulse Rate [Right Pulse Oximeter] 64 62 Respiratory Rate 16 16 Blood Pressure Blood Pressure [Left Arm] 113/64 114/53 L Blood Pressure [Left Upper Arm] Pulse Oximetry 92 91 Oxygen Delivery Method Room Air Room Air Oxygen Flow Rate 1 1 Assessment and Plan Assessment and plan (1) Fracture of right hip: Problem details: Day 1 s/p right hip bipolar hemiarthroplasty Status: Acute Assessment and Plan: - Complete 23 hour perioperative antibiotics. - PT/OT consults for education and assistance. - Social consult for discharge planning. Patient will require SNF placement. - Weight bear as tolerated. - DVT prophylaxis includes: Dr. Molina recommended Xarelto x 5 days followed by aspirin 81 mg BID x 1 month, however Hospitalists recommendation would be appreciated. Also bilateral knee high Bassam stockings (x 1 month), frequent ambulation and ankle pumps when sedentary. - Wound check at 7-10 days postop will be completed by SNF staff. Mepilex will be removed by SNF staff or sooner if becomes saturated. Contact Orthopedics with any questions or concerns. - Return to clinic in [address] Molina. - Prescribed analgesics as needed. Patient is content with current narcotic medications. Minimize narcotic pain medication use; wean off and discontinue as soon as possible. - Please contact Savannah De Leon PA-C once SNF placement has been determined so I may E-prescribe Roberto's discharge medications. (2) Muscular dystrophy: Status: Acute (3) BPH (benign prostatic hyperplasia): Status: Acute
[2022-08-21] MEDS: OXYCODONE 5 MG TABLET PO (08:54)
[2022-08-21] MEDS: SENNOSIDES 1 TAB TABLET 2 TAB PO ×2 (08:56→20:27)
[2022-08-21] MEDS: LACTATED RINGERS 1000 ML 1,000 ML 75 ML IV ×2 (08:56→22:40)
--- NOTE | 2022-08-21 13:25 | P.IMPN_ITS ---
Progress Note: A&P Assessment and plan (1) Fracture of right hip: Problem details: Day 1 s/p right hip bipolar hemiarthroplasty. Generally doing well. Bearing weight as tolerated. Continue working with rehab to work on transfers. Status: Acute (2) Muscular dystrophy: Problem details: Pre-existing mobility problems will need to be considered with therapy and disposition planning Status: Acute (3) BPH (benign prostatic hyperplasia): Problem details: Remove catheter for trial of voiding Status: Acute Plan Continue in hospital for management of postoperative therapy, pain management and disposition planning Time Spent With Patient Total time spent: Total time spent is 35 minutes, 20 minutes in coordination of care and discussing with patient other providers ongoing management of hip fracture surgery, muscular dystrophy and urinary retention Subjective Date Seen: 08/21/22 Interval history: 82-year-old male seen in followup of right bipolar arthroplasty for femoral neck fracture. He has had minimal pain. He is anxious to get up out of bed. He reports no nausea. Has a good appetite today. Did receive some oxygen overnight but denies dyspnea. Exam Narrative: Exam Narrative: He is alert and oriented and appears in no distress. Breathing is unlabored. Respirations are clear to auscultation. Cardiovascular: S1, S2, regular rate and rhythm. No murmur gallop or rub. Abdomen is soft without tenderness. Right hip appears well except for the right groin adjacent to the hip where he has a confluent area of erythema. This extends outside of the intertriginous area to a significant degree. He is able to move his feet and ankles well. No significant edema. Const: Vital Signs, click to edit/add: Vital Signs - 24 hr 08/20/22 13:30 08/20/22 13:33 08/20/22 18:35 Temperature 97.5 F L Pulse Rate 57 L 61 71 Pulse Rate [Right Pulse Oximeter] Respiratory Rate 19 Blood Pressure 170/82 H 131/86 Blood Pressure [Le ft Arm] Pulse Oximetry 97 97 100 Oxygen Delivery Me thod Oxygen Flow Rate 08/20/22 18:40 08/20/22 18:45 08/20/22 18:50 Temperature 97.5 F L 97.5 F L 97.5 F L Pulse Rate 69 67 65 Pulse Rate [Right Pulse Oximeter] Respiratory Rate 19 16 16 Blood Pressure 143/86 H 146/78 H Blood Pressure [Le ft Arm] Pulse Oximetry 100 100 100 Oxygen Delivery Me thod OxyMask OxyMask OxyMask Oxygen Flow Rate 6 6 6 08/20/22 18:55 08/20/22 19:00 08/20/22 19:05 Temperature 97.5 F L 97.5 F L 97.2 F L Pulse Rate 60 60 68 Pulse Rate [Right Pulse Oximeter] Respiratory Rate 16 16 16 Blood Pressure 151/82 H 158/82 H 143/70 H Blood Pressure [Le ft Arm] Pulse Oximetry 98 94 94 Oxygen Delivery Me thod Room Air Room Air Room Air Oxygen Flow Rate 6 08/20/22 19:16 08/20/22 19:22 08/20/22 19:30 Temperature 96.7 F L 96.7 F L 96.7 F L Pulse Rate 63 Pulse Rate [Right Pulse Oximeter] Respiratory Rate 14 14 14 Blood Pressure Blood Pressure [Le ft Arm] 156/98 H 161/75 H Pulse Oximetry 92 93 Oxygen Delivery Me thod Room Air Room Air Room Air Oxygen Flow Rate 2 2 08/20/22 19:45 08/20/22 20:00 08/20/22 20:30 Temperature 96.9 F L 96.9 F L 96.9 F L Pulse Rate Pulse Rate [Right Pulse Oximeter] Respiratory Rate 14 14 14 Blood Pressure Blood Pressure [Le ft Arm] 137/86 154/76 H 132/72 Pulse Oximetry 94 95 94 Oxygen Delivery Me thod Room Air Room Air Room Air Oxygen Flow Rate 2 2 2 08/20/22 22:27 08/21/22 03:00 08/20/22 21:00 Temperature 97.7 F Pulse Rate Pulse Rate [Right Pulse Oximeter] 94 65 Respiratory Rate 14 16 16 Blood Pressure Blood Pressure [Le ft Arm] 110/62 122/67 Pulse Oximetry 94 94 Oxygen Delivery Me thod Room Air Room Air Oxygen Flow Rate 1 1 08/20/22 22:00 08/20/22 23:00 08/21/22 00:00 Temperature 97.6 F 97.7 F Pulse Rate Pulse Rate [Right Pulse Oximeter] 66 64 62 Respiratory Rate 16 16 16 Blood Pressure Blood Pressure [Le ft Arm] 143/75 H 113/64 114/53 L Pulse Oximetry 90 92 91 Oxygen Delivery Me thod Room Air Room Air Room Air Oxygen Flow Rate 1 1 1 08/21/22 07:55 Temperature 98 F Pulse Rate Pulse Rate [Right Pulse Oximeter] 64 Respiratory Rate 18 Blood Pressure Blood Pressure [Le ft Arm] 111/62 Pulse Oximetry 94 Oxygen Delivery Me thod Room Air Oxygen Flow Rate Documenting provider has reviewed patient's vital signs: yes Labs Labs: Laboratory Results - last 24 hr 08/20/22 08/21/22 08/21/22 13:35 06:26 06:26 WBC 11.90 H RBC 4.16 L Hgb 12.9 L Hct 38.9 MCV 94 MCH 31 MCHC 33 Plt Count 177 Sodium 137 Potassium 4.1 BUN 17 Creatinine 0.5 Estimated Creat Clear 65.47 Estimated GFR 102 Urine Color Yellow Urine Appearance Clear Urine pH 6.0 Ur Specific [place] 1.025 Urine Protein Negative Urine Glucose (UA) Negative Urine Ketones Negative Urine Blood Negative Urine Nitrite Negative Urine Bilirubin Negative Urine Urobilinogen 0.2 Ur Leukocyte Esterase Negative Urine RBC 0-2 Urine WBC 0-2 Ur Squamous Epith Cells None Amorphous Sediment Few A Other Sediment 0 Urine Bacteria None
--- NOTE | 2022-08-21 14:54 | PC.NURSE ---
Pt eval by Dr. Smith. UAL in room. Pt c/o itching to left eye, improved after morning pepcid & famotidine provided. Akwa tears for comfort. Tele indicates NSR. Dressing changed by MD on rounds. and dtr supportive at bedside. Vancomycin added to pt's official allergy list per Claudia in Pharmacy. IV Daptomycin given slow IVP over 2 minutes. Pt did not experience any adverse reaction with this new medication. Feeling better & I'm starting to enjoy the food now, per patient. Report will be given to oncoming shift RN.
--- NOTE | 2022-08-21 15:05 | PC.NURSE ---
Patient up with heavy 2 PT assist, GB and walker. Recommendation for nursing staff to use EZ stand per therapy for pt and staff safety over the weekend. Eval by ortho MOMO this am. Pt received his second post op IV ATB. Amado catheter #16 frisian discontinued (30 cc balloon) shortly after 2 PM. Good appetite, 810 in orally and 400cc out of light carlos urine from amado catheter. Fall risk d/to baseline hx of muscular dystrophy. Pt anxious about not having his call light, hourly checks. Encouraged PO fluids. Maintenance IV fluid LR continues at 75 cc/hour. 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
--- NOTE | 2022-08-21 15:36 | PC.SOCIAL ---
Discharge planning- Received phone call from PT, Alix Acevedo, stating that pt. recommendation is SNF for short-term rehab. Met with pt in room to discuss SNF options for short-term rehab. Contacted the following facilities. 1. [facility]- left a voicemail checking to see if the facility accepted [employer] insurance. Faxed referral to [phone]. 2. [facility] [place]- Phone call to admissions. There will be an open bed on Wednesday (08-24-22). Faxed referral to [phone]. 3. [facility] in [place]- Phone call to Latonya in admissions. Left a voicemail inquiring on bed availability. Faxed referral to [phone]. Received phone call back from Latonya stating that she will not have an open bed until later next week.
[2022-08-21] MEDS: NYSTATIN POWDER 1 APPLIC TOPICAL (20:28)
[2022-08-22] MEDS: 0.9 % SODIUM CHLORIDE 500 ML IV (00:24)
[2022-08-22] MEDS: ACETAMINOPHEN 325 MG TABLET 650 MG PO ×4 (01:18→18:47)
[2022-08-22 03:00] VITALS: BP 129/60; PULSE 69; RESP 18; TEMP 37.2; O2SAT 94
[2022-08-22 06:50] LABS: Hemoglobin* 11.3 gm/dL (13.5-17.5); Mean Corpuscular HGB Conc 33 gm/dL (32-36); Mean Corpuscular Hemoglobin 32 pg (26-34); Mean Corpuscular Volume 95 fL (80-100); Platelet Count* 165 K/uL (140-440); Red Blood Count 3.57 m/uL (4.30-5.90); Slide Review Reflex No; White Blood Count* 10.26 K/uL (4.50-11.00)
[2022-08-22 07:00] VITALS: BP 128/64; PULSE 60; RESP 16; TEMP 37.4; O2SAT 91
--- NOTE | 2022-08-22 07:06 | PC.NURSE ---
shift note: pleasant and cooperative. EZ stand for transfers, tolerates well. No c/o pain, rather states discomfort from the bed, pt repo?d frequently.? 88-92% on RA, encouraged IS use. Applied 1L O2 via NC while pt asleep to maintain >88%. Pt 84% on RA when sleeping. ? Since amado has been DC?d, pt was only able to urinate a dribble, post void bladder scan was for 35-50mL, pt encouraged to drink water. Around midnight pt attempted to urinate with no success, bladder scanned for 250-290mL, MD updated- okay?d fluid bolus. 100mL urine output- post void scan for 250mL. ? Reddened area to right upper thigh near dressing noted. Nystatin to groin applied.?Dressing to thigh CDI, active ice applied.
[2022-08-22 07:07] LABS: Potassium* 3.8 mmol/L (3.6-5.1); Sodium* 137 mmol/L (135-149)
[2022-08-22 07:10] LABS: Creatinine* 0.7 mg/dL (0.5-1.5); Est. Creatinine Clearance* 65.47; Estimated Glomerular Filt Rate 93 ml/min
[2022-08-22 07:11] LABS: Blood Urea Nitrogen* 20 mg/dL (7-30)
[2022-08-22] MEDS: NYSTATIN POWDER 1 APPLIC TOPICAL ×2 (09:08→20:08)
[2022-08-22] MEDS: SENNOSIDES 1 TAB TABLET 2 TAB PO ×2 (09:08→20:07)
--- NOTE | 2022-08-22 09:35 | PM.IMPN1 ---
Progress Note: A&P Assessment and plan (1) Fracture of right hip: Problem details: Day 1 s/p right hip bipolar hemiarthroplasty. Generally doing well. Bearing weight as tolerated. Continue working with rehab to work on transfers. Status: Acute (2) Muscular dystrophy: Problem details: Pre-existing mobility problems will need to be considered with therapy and disposition planning Status: Acute (3) BPH (benign prostatic hyperplasia): Problem details: Remove catheter for trial of voiding Status: Acute (4) Rash: Problem details: Rash in right groin in adjacent right hip surgical wound. Looks more like contact dermatitis from soap or tape rather than cellulitis Status: Acute Plan Continue in-hospital to work with therapy towards a goal of independent transfers in going home Time Spent With Patient Total time spent: Total time spent today is 30 minutes, 20 minutes in coordination care and discussing with patient and other providers ongoing evaluation management of hip fracture and muscular dystrophy Subjective Date Seen: 08/22/22 Interval history: 82-year-old male seen in followup of hip fracture and muscular dystrophy. Patient reports generally doing well in the last day. He still working with Physical therapy to transfer from bed to chair. He is not yet independent in this function. He very much wants to go home to be with his . His pain is well controlled. No shortness of breath. He has a good appetite. Exam Narrative: Exam Narrative: He is alert and in no distress. He is oriented to his circumstances. Respirations are clear to auscultation. Cardiovascular: S1, S2, regular rate and rhythm. Abdomen is soft without tenderness. Intact pulses and sensation. No marked bruising or erythema around his wound. The right groin rash is modestly better. It has the appearance of a contact dermatitis from soap or tape. Const: Vital Signs, click to edit/add: Vital Signs - 24 hr 08/21/22 13:50 08/21/22 13:50 08/21/22 15:00 Temperature 97.9 F Pulse Rate [Right Pulse Oximeter] 66 66 72 Respiratory Rate 20 20 20 Blood Pressure [Le ft Arm] 140/64 H 140/64 H Pulse Oximetry 92 92 Oxygen Delivery Me thod Room Air Room Air Oxygen Flow Rate 08/21/22 15:00 08/21/22 19:00 08/21/22 22:57 Temperature 98.4 F 98.4 F Pulse Rate [Right Pulse Oximeter] 72 68 78 Respiratory Rate 20 20 20 Blood Pressure [Le ft Arm] 136/65 161/70 H Pulse Oximetry 89 90 Oxygen Delivery Me thod Room Air Room Air Oxygen Flow Rate 08/21/22 22:57 08/22/22 03:00 Temperature 99.1 F 99 F Pulse Rate [Right Pulse Oximeter] 78 69 Respiratory Rate 20 18 Blood Pressure [Le ft Arm] 121/63 129/60 Pulse Oximetry 90 94 Oxygen Delivery Me thod Nasal Cannula Nasal Cannula Oxygen Flow Rate 1 1 Documenting provider has reviewed patient's vital signs: yes Labs Labs: Laboratory Results - last 24 hr 08/22/22 08/22/22 06:13 06:13 WBC 10.26 RBC 3.57 L Hgb 11.3 L Hct 34.0 L MCV 95 MCH 32 MCHC 33 Plt Count 165 Sodium 137 Potassium 3.8 BUN 20 Creatinine 0.7 Estimated Creat Clear 65.47 Estimated GFR 93
[2022-08-22] MEDS: RIVAROXABAN 10 MG TABLET PO (10:21)
--- NOTE | 2022-08-22 10:53 | P.ORPN_ITS ---
Subjective Subjective Time Seen by Provider: 10:30 Date Seen: 08/22/22 Principal diagnosis: s/p right hip bipolar hemiarthroplasty Interval history: 82-year-old male seen in followup of hip fracture and muscular dystrophy. He working with Physical therapy to transfer from bed to chair. Two person assist. He is not yet independent in this function. He very much wants to go home to be with his . His pain is well controlled. No shortness of breath. He has a good appetite. Ortho Exam Narrative Exam Narrative: Roberto is conversive. He is in no acute distress. Converses without labored breathing. CMS intact right lower extremity. Able to plantar flex and dorsiflex the right ankle. Quads weak on right. Bilateral calves soft and nontender. Mild soft tissue edema lower legs. Mild soft tissue edema about the right hip. Dressing is intact. Ice pack is applied to right hip. Const Vital Signs, click to edit/add: Vital Signs - 24 hr 08/21/22 13:50 08/21/22 13:50 08/21/22 15:00 Temperature 97.9 F Pulse Rate [Right Pulse Oximeter] 66 66 72 Respiratory Rate 20 20 20 Blood Pressure [Left Arm] 140/64 H 140/64 H Pulse Oximetry 92 92 Oxygen Delivery Method Room Air Room Air Oxygen Flow Rate 08/21/22 15:00 08/21/22 19:00 08/21/22 22:57 Temperature 98.4 F 98.4 F Pulse Rate [Right Pulse Oximeter] 72 68 78 Respiratory Rate 20 20 20 Blood Pressure [Left Arm] 136/65 161/70 H Pulse Oximetry 89 90 Oxygen Delivery Method Room Air Room Air Oxygen Flow Rate 08/21/22 22:57 08/22/22 03:00 08/22/22 07:00 Temperature 99.1 F 99 F Pulse Rate [Right Pulse Oximeter] 78 69 60 Respiratory Rate 20 18 16 Blood Pressure [Left Arm] 121/63 129/60 Pulse Oximetry 90 94 Oxygen Delivery Method Nasal Cannula Nasal Cannula Oxygen Flow Rate 1 1 08/22/22 07:00 Temperature 99.3 F Pulse Rate [Right Pulse Oximeter] 60 Respiratory Rate 16 Blood Pressure [Left Arm] 128/64 Pulse Oximetry 91 Oxygen Delivery Method Room Air Oxygen Flow Rate Documenting provider has reviewed patient's vital signs: yes Assessment and Plan Assessment and plan (1) Fracture of right hip: Problem details: Status post right hip bipolar hemiarthroplasty. Status: Acute Assessment and Plan: Plan for discharge is to long-term facility versus home when he discharge criteria. He is not yet independent enough to go home. He would like to go home. DVT prophylaxis includes Xarelto 10 mg daily for 1 month, , Bassam stockings x1 month may remove for 1 hr per day Remove dressing 1 week. Observe wound and phone Orthopedics with any questions or concerns Use Ice on operative hip unrestricted. Return to clinic in 1 week with PA for a wound check if he discharges to home or Return to clinic in [address] Molina if he goes to a long-term facility upon discharge. Minimize narcotic use. Wean off and discontinue soon as possible. Weightbear as tolerated right lower extremity Continue PT, OT, cares (2) Muscular dystrophy: Problem details: Pre-existing mobility problems will need to be considered with therapy and dispo sition planning Status: Acute (3) BPH (benign prostatic hyperplasia): Problem details: Remove catheter for trial of voiding Status: Acute (4) Rash: Problem details: Rash in right groin in adjacent right hip surgical wound. Looks more like contact dermatitis from soap or tape rather than cellulitis Status: Acute
[2022-08-22 11:00] VITALS: BP 143/66; PULSE 61; RESP 14; TEMP 36.9; O2SAT 93
[2022-08-22 15:00] VITALS: BP 172/97; PULSE 71; RESP 16; TEMP 36.6; O2SAT 92
--- NOTE | 2022-08-22 18:50 | PC.NURSE ---
End of Shift: Patient pleasant and cooperative. Patient vitally stable, lungs clear, BS WNL, IV intact. Patient's right hip surgical dressing C/D/I. Patient rates pain at most 4/10, only scheduled tylenol given. Patient is EZ stand for transfers to bed/chair/toilet. Patient tolerating regular diet, and urinating small amounts at a time. Ice pack applied to right hip. Patient left foot did have +1 pitting edema at the beginning of day.
[2022-08-22 19:00] VITALS: BP 173/85; PULSE 69; RESP 16; TEMP 36.9; O2SAT 95
[2022-08-22] MEDS: OXYCODONE 5 MG TABLET PO (22:00)
[2022-08-22 23:00] VITALS: BP 175/88; PULSE 66; RESP 18; TEMP 36.8; O2SAT 95
[2022-08-23] MEDS: lidocaine HCL 2 % JELLY (TOP) STERILE 6 ML UR (00:27)
[2022-08-23] MEDS: ACETAMINOPHEN 325 MG TABLET 650 MG PO ×3 (00:27→16:11)
[2022-08-23 03:00] VITALS: BP 151/71; PULSE 66; RESP 18; TEMP 36.8; O2SAT 94
--- NOTE | 2022-08-23 05:15 | PC.NURSE ---
[id number] Pt up in chair at beginning of shift, requested to sleep in chair for night, however, approx midnight pt stated bladder discomfort and inability to urinate even though he had the urge. Pt transferred to bed with EZ stand, tolerated very well, bladder scan and straight cath performed with relief to pt. Pt tolerated procedure very well. Pt remained in bed the rest of night, appears uncomfortable and expresses pain/muscle stiffness throughout entire body. declined prn pain medication at this time, declined repositioning. Ice applied to R hip, dressing C/D/I.
[2022-08-23 07:00] VITALS: BP 138/76; PULSE 61; RESP 14; TEMP 36.7; O2SAT 98
[2022-08-23 07:28] LABS: Hematocrit 34.9 % (37.0-53.0); Hemoglobin* 11.5 gm/dL (13.5-17.5); Mean Corpuscular HGB Conc 33 gm/dL (32-36); Mean Corpuscular Hemoglobin 31 pg (26-34); Mean Corpuscular Volume 95 fL (80-100); Platelet Count* 167 K/uL (140-440); Red Blood Count 3.67 m/uL (4.30-5.90); White Blood Count* 9.49 K/uL (4.50-11.00)
[2022-08-23 07:36] LABS: Potassium* 3.8 mmol/L (3.6-5.1); Sodium* 135 mmol/L (135-149)
[2022-08-23 07:38] LABS: Creatinine* 0.6 mg/dL (0.5-1.5); Est. Creatinine Clearance* 65.47; Estimated Glomerular Filt Rate 97 ml/min
[2022-08-23 07:39] LABS: Blood Urea Nitrogen* 16 mg/dL (7-30)
[2022-08-23 07:43] LABS: Slide Review Reflex No
--- NOTE | 2022-08-23 09:42 | PM.IMPN1 ---
Progress Note: A&P Assessment and plan (1) Fracture of right hip: Problem details: Status post right hip bipolar hemiarthroplasty 08/20/2022. No operative complications. Doing well. Status: Acute (2) Muscular dystrophy: Problem details: Pre-existing mobility problems will need to be considered with therapy and disposition planning Status: Acute (3) BPH (benign prostatic hyperplasia): Problem details: Remove catheter for trial of voiding. Episode of urinary retention last night. Voiding well today. Continue to monitor. Status: Acute (4) Rash: Problem details: Rash in right groin in adjacent right hip surgical wound. Looks more like contact dermatitis from soap or tape rather than cellulitis. Appears to be fading. Status: Acute (5) Disability: Problem details: Will have him work with nursing and therapy to demonstrate that he can get to the bathroom and on and off the toilet. Status: Acute Time Spent With Patient Total time spent: 25 minutes, 20 minutes in coordination of care and discussing with patient and other providers management of disability Subjective Date Seen: 08/23/22 Interval history: 82-year-old male seen in followup of hip fracture, bipolar arthroplasty and muscular dystrophy. Patient reports that he feels like he is making progress with transfers. Pain is well controlled he had 1 dose of oxycodone yesterday evening. He had an episode of urinary retention requiring self catheterization yesterday. No bowel movement yet. Exam Narrative: Exam Narrative: He is alert and appears in no distress. Breathing is unlabored. Hip with mild swelling around the surgery but no erythema. Distally he has intact pulses and sensation without significant edema Const: Vital Signs, click to edit/add: Vital Signs - 24 hr 08/22/22 11:00 08/22/22 15:00 08/22/22 15:00 Temperature 98.4 F 97.8 F Pulse Rate [Right Pulse Oximeter] 61 71 71 Respiratory Rate 14 16 16 Blood Pressure [Le ft Arm] 143/66 H Blood Pressure [Ri ght Arm] 172/97 H Pulse Oximetry 93 92 Oxygen Delivery Me thod Room Air Room Air 08/22/22 19:00 08/22/22 23:00 08/22/22 23:00 Temperature 98.4 F 98.2 F Pulse Rate [Right Pulse Oximeter] 69 66 66 Respiratory Rate 16 18 18 Blood Pressure [Le ft Arm] Blood Pressure [Ri ght Arm] 173/85 H 175/88 H Pulse Oximetry 95 95 Oxygen Delivery Me thod Room Air Room Air 08/23/22 03:00 Temperature 98.3 F Pulse Rate [Right Pulse Oximeter] 66 Respiratory Rate 18 Blood Pressure [Le ft Arm] Blood Pressure [Ri ght Arm] 151/71 H Pulse Oximetry 94 Oxygen Delivery Me thod Room Air Documenting provider has reviewed patient's vital signs: yes Labs Labs: Laboratory Results - last 24 hr 08/23/22 08/23/22 06:16 06:16 WBC 9.49 RBC 3.67 L Hgb 11.5 L Hct 34.9 L MCV 95 MCH 31 MCHC 33 Plt Count 167 Sodium 135 Potassium 3.8 BUN 16 Creatinine 0.6 Estimated Creat Clear 65.47 Estimated GFR 97
[2022-08-23] MEDS: NYSTATIN POWDER 1 APPLIC TOPICAL ×2 (10:16→23:37)
[2022-08-23] MEDS: SENNOSIDES 1 TAB TABLET 2 TAB PO ×2 (10:16→10:17)
[2022-08-23] MEDS: TAMSULOSIN HCL 0.4 MG CAPSULE PO (10:17)
[2022-08-23] MEDS: RIVAROXABAN 10 MG TABLET PO (10:20)
[2022-08-23 11:00] VITALS: BP 162/75; PULSE 71; RESP 16; TEMP 36.3; O2SAT 95
[2022-08-23] MEDS: FUROSEMIDE 40 MG TABLET PO (11:40)
[2022-08-23 15:00] VITALS: BP 136/83; PULSE 80; RESP 16; TEMP 36.4; O2SAT 96
[2022-08-23] MEDS: bisacodyL 10 MG SUPP.RECT PR (16:34)
[2022-08-23 19:00] VITALS: BP 137/65; PULSE 74; RESP 16; TEMP 37.2; O2SAT 97
--- NOTE | 2022-08-23 19:21 | PC.NURSE ---
End of Shift: Patient pleasant and cooperative. Patient vitally stable, lung clear, BS WNL, IV intact. Patient EZ stand to transfer, patient is 2 assist with walker. Patient report pain 3-4/10, only scheduled tylenol given. Patient only had breakfast today, then was adamant about having a BM. Patient sat on toilet for an hour, later a suppository was used and patient spent another hour on toilet until he had a 1 large formed BM. Patient, anally, was very uncomfortable. Patent was bladder scanned for 560 as patient felt bladder discomfort, straight cathed 825. Marilee hip dressing C/D/I.
[2022-08-23 23:00] VITALS: BP 150/83; PULSE 74; RESP 16; TEMP 36.8; O2SAT 98
[2022-08-24 02:59] VITALS: BP 165/83; PULSE 63; RESP 16; TEMP 36.8; O2SAT 94
--- NOTE | 2022-08-24 05:33 | PC.NURSE ---
[id number] Pt up in chair at beginning of shift, approx 2000 pt c/o not being able to void since straight cath earlier in the day, bladder scan performed and criteria met for amado insertion. amado insterted, pt tolerated well, patent and draining. Pivot transfer from recliner to bed with walker, BG, 1 assist. pt tolerated activity. declined tylenol x2 due to no to minimal pain. rested well during night. dressing to R hip C/D/I.
[2022-08-24 07:00] VITALS: BP 141/55; PULSE 72; RESP 24; TEMP 36.7; O2SAT 97
--- NOTE | 2022-08-24 10:22 | PM.DS1 ---
DS: Providers Provider Date Seen: 08/24/22 Date of admission: 08/20/22 19:16 Primary care physician: Carlos Cardenas MD Admitting Clinician: Torres Smith MD Attending Physician on discharge: Torres Smith MD Date of Discharge: 08/24/22 DS: Diagnosis Discharge Diagnosis (1) Fracture of right hip: Status: Acute Problem details: Status post right hip bipolar hemiarthroplasty 08/20/2022. No operative complications. Disability now primary due to muscular distrophy. (2) Disability: Status: Acute Problem details: Therapy with ongoing concerns about transfers. [facility]. (3) BPH (benign prostatic hyperplasia): Status: Acute Problem details: Catheter had to be reinserted due to inability to void. Will leave it in for 1 week with removal of catheter and a trial of voiding next week. Increase tamsulosin to 0.8 mg daily (4) Muscular dystrophy: Status: Acute Problem details: This is the main cause of his disability DS: Summary Hospital Course Hospital Course: 82-year-old male admitted to the hospital after a fall at home. He was found to have a femoral neck fracture. He went to the OR where he had a bipolar arthroplasty. There were no operative complications. Postoperatively he has done well except he has developed urinary retention. Catheter was placed on admission removed and then replaced again as he was unable to empty his bladder. He has had difficulties with transfers due to muscular dystrophy primarily. Therapy is [facility] but patient is very anxious to return home with his . Against recommendations of physical therapy he is choosing to go home. Status at Discharge Functional status at discharge: uses cane/walker Overall status at discharge: patient is progressing back to baseline Time Spent with Patient Time attestation: Total time spent providing and/or coordinating discharge services: Time spent: Greater than 30 minutes Exam Narrative: Exam Narrative: He is alert and appears in no distress. He is oriented to his circumstances and able to discuss risks and benefits of discharge to home. Breathing is unlabored. He is observed to transfer with the assistance of his nurse holding a gait belt. He appears relatively weak and unsteady. Const: Vital Signs, click to edit/add: Vital Signs - 24 hr 08/23/22 11:00 08/23/22 15:00 08/23/22 15:00 Temperature 97.4 F L 97.6 F Pulse Rate [Right Pulse Oximeter] 71 80 80 Respiratory Rate 16 16 16 Blood Pressure [Le ft Arm] 136/83 Blood Pressure [Ri ght Arm] 162/75 H Pulse Oximetry 95 96 Oxygen Delivery Me thod Room Air Room Air 08/23/22 19:00 08/23/22 23:00 08/23/22 23:00 Temperature 98.9 F 98.3 F Pulse Rate [Right Pulse Oximeter] 74 74 74 Respiratory Rate 16 16 16 Blood Pressure [Le ft Arm] Blood Pressure [Ri ght Arm] 137/65 150/83 H Pulse Oximetry 97 98 Oxygen Delivery Me thod Room Air Room Air 08/24/22 02:59 08/24/22 07:00 08/24/22 07:00 Temperature 98.3 F 98.1 F Pulse Rate [Right Pulse Oximeter] 63 72 72 Respiratory Rate 16 24 24 Blood Pressure [Le ft Arm] Blood Pressure [Ri ght Arm] 165/83 H 141/55 H Pulse Oximetry 94 97 Oxygen Delivery Me thod Room Air Room Air Documenting provider has reviewed patient's vital signs: yes Discharge Plan Discharge Disposition: Home, Self-Care Date of Admission: 08/20/22 19:16 Attending Provider on Discharge: Torres Smith Primary Care Provider: Carlos Cardenas Condition: Stable Anticipated Discharge Date/Time: 08/24/22 10:19 Discharge Medications: New sennosides [Senna Lax] 8.6 mg Tablet 2 tab PO BID PRNQty: 30 0RF acetaminophen 500 mg capsule 500 - 1,000 mg PO Q4-6H MDD 4000 mg per day PRNQty: 100 0RF Xarelto 10 mg Tablet 10 mg PO DAILY 27 Days Qty: 27 0RF oxycodone 5 mg Tablet 2.5 - 5 mg PO Q4-6H MDD 6 tabs per day PRN (Reason: Pain) Qty: 42 0RF Rx Instructions: minimize and discontinue as soon as possible Changed tamsulosin 0.4 mg capsule 0.8 mg PO DAILY Qty: 60 0RF furosemide [Lasix] 20 mg tablet 20 mg PO DAILY Qty: 30 0RF Discharge Orders: Discharge Order (Routine); Ordered 08/24/22 Ordered By: Torres Smith Patient Education: Surgical Site Infections (ED) Activity Level: Weight Bearing as Tolerated Activity Detail: Keep dressing on for 1 week. Dressing is waterproof. May shower. Surgical glue covers the wound. Ice and elevate operative extremity without restriction. Wear compression stockings for 1 month post surgery. May remove for 1 hour per day. If you drive, Do not drive while taking narcotic pain medication. Do not drink alcohol while taking narcotic pain medication. May drive when safe to do so and have full function of the extremities, this may take 6 weeks or more. Notify Orthopedics with any questions or concerns. ([phone]) Discharge Diet: Regular Follow Up Appointments: Carlos Cardenas MD [Primary Care Provider] - (Follow up in one week for trial of voiding without catheter) Forms: Work/Release Restrictions Discharge Comments: orthopedic appt in one month with Dr Molina if going to SNF, or in one week with MISTI if he goes home upon discharge If Roberto goes to SNF, OT and PT is needed.
[2022-08-24] MEDS: FUROSEMIDE 20 MG TABLET PO (10:56)
[2022-08-24] MEDS: RIVAROXABAN 10 MG TABLET PO (10:56)
[2022-08-24] MEDS: TAMSULOSIN HCL 0.4 MG CAPSULE 0.8 MG PO (10:57)
[2022-08-24 11:00] VITALS: BP 156/86; PULSE 65; RESP 21; TEMP 36.7; O2SAT 95
[2022-08-24] MEDS: NYSTATIN POWDER 1 APPLIC TOPICAL (11:00)
--- NOTE | 2022-08-24 13:04 | PC.SOCIAL ---
Discharge plan- Pt is going home with home care for PT, OT, and nursing. Called the following home care agencies for services for pt. 1. [facility]- no openings. 2. [facility]- Left a voicemail inquiring on availability for services. 3. [facility]- Made phone call. [facility] has availability and requested information to be faxed to [phone]. Completed face to face home care order form. Faxed Home care order form, H&P, Progress note, and face sheet. Confirmed that the information was received. [facility] will open services to client beginning on of this week. Called [facility] and set transportation for pt to get home after discharge from [facility]. [facility] will arrive at 2:30 pm to pick pt up and take him home. Pt will private pay for transportation. Provided updated information to nursing staff.
[2022-08-24 17:33] VITALS: BP 156/86; PULSE 65; RESP 21; TEMP 36.7
--- NOTE | 2022-08-24 17:41 | PC.NURSE ---
shift [phone] pt this shift calm and cooperative with cares. Pivot transfer with 1 person assist using gait belt and walker into wheelchair, toilet, recliner, or bed. Pt tolerated well. 2 BM soft and loose. Pt refused senna for this reason. Denies pain, declined tylenol and oxycodone. Bruising and tenderness noted to L 2,4,5th toes and lateral foot. Edema 2+ in L foot, pulse faint. R foot pedal pulse strong, CMS intact. Bandage to R hip CDI, skin around area red and warm. Educated pt on ice benefits, pt refused ice. Rob catheter patent, dark carlos u/o. Used IS with vitals. Pt educated, and return demonstration done on emptying and cleaning catheter. Discharge instructions given, IV dc'd, pt wheeled out to transfer van.
== END 2022-08-24 14:45 | disposition home or self-care (01) | DRG 522 ==
LOC: ED 13:00 → MEDSURG 13:23 → SS 13:42 → MEDSURG 19:33 → SS 20:02 → MEDSURG 20:02
PROVIDERS: Orthopaedic Surgery; Admitting Provider Family Medicine; Emergency Provider Family Medicine; PCP Internal Medicine; Visit Provider Family Medicine
PROC: 0SRR019 Replacement of Right Hip Joint, Femoral Surface with Metal Synthetic Substitute, Cemented, Open Approach (ICD-10-PCS; principal; 2022-08-20 15:15)
DX: S72.001A Fracture of unspecified part of neck of right femur, initial encounter for closed fracture (principal); W05.2XXA Fall from non-moving motorized mobility scooter, initial encounter; G71.00 Muscular dystrophy, unspecified; L25.9 Unspecified contact dermatitis, unspecified cause; N40.1 Benign prostatic hyperplasia with lower urinary tract symptoms; R33.8 Other retention of urine; Z85.51 Personal history of malignant neoplasm of bladder
CPT/HCPCS: 01214; 36415; 51702; 51798; 64450; 71045; 73501; 73502; 76000; 76942; 80053; 81001; 82565; 84132; 84295; 84520; 85025; 85027; 87635; 93005; 94761; 97110; 97161; 97165; 97530; 97535; 99100; 99284; 99285; A9270; C1776; J0690; J1100; J1170; J2250; J2405; J2704; J2710; J2795; J3010; J3490; J7120

== ENCOUNTER 2022-08-25 06:22 | Outpatient (CLI) | payer OTHER, SELFPAY | END 2022-08-25 06:23 | disposition home or self-care (01) | LOC: AMB 09-01 07:09 | PROVIDERS: PCP Internal Medicine; Visit Provider Family Medicine | DX: R53.1 Weakness (principal) | CPT/HCPCS: A0998 ==

== ENCOUNTER 2022-11-11 14:30 | Outpatient (RCR) | payer OTHER, SELFPAY | END 2023-06-03 23:59 | disposition home or self-care (01) | PROVIDERS: PCP Internal Medicine; Visit Provider Orthopaedic Surgery | DX: Z96.641 Presence of right artificial hip joint (principal); Z51.89 Encounter for other specified aftercare | CPT/HCPCS: 97110; 97162; 97530 ==

== ENCOUNTER 2022-11-25 14:09 | Outpatient (CLI) | payer OTHER, SELFPAY ==
[2022-11-25 15:53] LABS: Chloride* 106 mmol/L (96-114); Sodium* 141 mmol/L (135-149)
[2022-11-25 15:56] LABS: Creatinine* 0.7 mg/dL (0.5-1.5); Estimated Glomerular Filt Rate 93 ml/min; Potassium* 3.5 mmol/L (3.6-5.1)
[2022-11-25 15:57] LABS: Blood Urea Nitrogen* 19 mg/dL (7-30); Calcium* 9.1 mg/dL (8.4-10.6); Carbon Dioxide* 30 mmol/L (20-32); Glucose* 121 mg/dL (60-115)
== END 2022-11-25 14:10 | disposition home or self-care (01) ==
PROVIDERS: PCP Internal Medicine; Visit Provider Internal Medicine
DX: R21 Rash and other nonspecific skin eruption (principal)
CPT/HCPCS: 80048

== ENCOUNTER 2022-11-27 09:54 | Outpatient (CLI) | payer OTHER, SELFPAY | END 2022-11-27 09:55 | disposition home or self-care (01) | LOC: WOUND 09:54 | PROVIDERS: PCP Internal Medicine; Visit Provider Physician Assistant Surgical | DX: I87.2 Venous insufficiency (chronic) (peripheral) (principal); I73.9 Peripheral vascular disease, unspecified; L97.812 Non-pressure chronic ulcer of other part of right lower leg with fat layer exposed; L97.822 Non-pressure chronic ulcer of other part of left lower leg with fat layer exposed; G71.00 Muscular dystrophy, unspecified | CPT/HCPCS: 11042; 99213 ==

== ENCOUNTER 2022-12-04 11:06 | Outpatient (CLI) | payer OTHER, SELFPAY | END 2022-12-04 11:07 | disposition home or self-care (01) | LOC: WOUND 11:06 | PROVIDERS: PCP Internal Medicine; Visit Provider Physician Assistant Surgical | DX: I87.313 Chronic venous hypertension (idiopathic) with ulcer of bilateral lower extremity (principal); L97.822 Non-pressure chronic ulcer of other part of left lower leg with fat layer exposed; L97.812 Non-pressure chronic ulcer of other part of right lower leg with fat layer exposed; I87.2 Venous insufficiency (chronic) (peripheral); I73.9 Peripheral vascular disease, unspecified; G71.00 Muscular dystrophy, unspecified | CPT/HCPCS: 11042; 11045 ==

== ENCOUNTER 2022-12-18 10:56 | Outpatient (CLI) | payer OTHER, SELFPAY | END 2022-12-18 10:57 | disposition home or self-care (01) | LOC: WOUND 10:56 | PROVIDERS: PCP Internal Medicine; Visit Provider Physician Assistant Surgical | DX: I87.313 Chronic venous hypertension (idiopathic) with ulcer of bilateral lower extremity (principal); L97.812 Non-pressure chronic ulcer of other part of right lower leg with fat layer exposed; L97.822 Non-pressure chronic ulcer of other part of left lower leg with fat layer exposed; I87.2 Venous insufficiency (chronic) (peripheral) | CPT/HCPCS: 11042; 11045 ==

== ENCOUNTER 2022-12-25 11:14 | Outpatient (CLI) | payer OTHER, SELFPAY | END 2022-12-25 11:15 | disposition home or self-care (01) | LOC: WOUND 11:15 | PROVIDERS: PCP Internal Medicine; Visit Provider Physician Assistant Surgical | DX: I87.313 Chronic venous hypertension (idiopathic) with ulcer of bilateral lower extremity (principal); L97.812 Non-pressure chronic ulcer of other part of right lower leg with fat layer exposed; L97.822 Non-pressure chronic ulcer of other part of left lower leg with fat layer exposed; I87.2 Venous insufficiency (chronic) (peripheral); G71.00 Muscular dystrophy, unspecified | CPT/HCPCS: 11042 ==

== ENCOUNTER 2023-01-01 11:26 | Outpatient (CLI) | payer OTHER, SELFPAY | END 2023-01-01 11:27 | disposition home or self-care (01) | LOC: WOUND 11:26 | PROVIDERS: PCP Internal Medicine; Visit Provider Physician Assistant Surgical | DX: I87.2 Venous insufficiency (chronic) (peripheral) (principal); L97.812 Non-pressure chronic ulcer of other part of right lower leg with fat layer exposed; I73.9 Peripheral vascular disease, unspecified | CPT/HCPCS: 11042 ==

== ENCOUNTER 2023-01-15 10:38 | Outpatient (CLI) | payer OTHER, SELFPAY | END 2023-01-15 10:39 | disposition home or self-care (01) | LOC: WOUND 10:38 | PROVIDERS: PCP Internal Medicine; Visit Provider Physician Assistant Surgical | DX: I87.2 Venous insufficiency (chronic) (peripheral) (principal); L97.812 Non-pressure chronic ulcer of other part of right lower leg with fat layer exposed; L97.822 Non-pressure chronic ulcer of other part of left lower leg with fat layer exposed; G71.00 Muscular dystrophy, unspecified; I73.9 Peripheral vascular disease, unspecified | CPT/HCPCS: 99213 ==

== ENCOUNTER 2023-03-18 10:08 | Outpatient (CLI) | payer OTHER, SELFPAY | END 2023-03-18 10:09 | disposition home or self-care (01) | LOC: NFLDREF 03-22 09:04 | PROVIDERS: PCP Internal Medicine; Referring Provider Internal Medicine; Visit Provider Internal Medicine | DX: Z12.5 Encounter for screening for malignant neoplasm of prostate (principal); Z13.6 Encounter for screening for cardiovascular disorders | CPT/HCPCS: 80053; 80061; 84153 ==

== ENCOUNTER 2023-06-15 10:46 | Outpatient (RCR) | payer SELFPAY | END 2023-12-30 15:05 | disposition home or self-care (01) | LOC: MOW 10:46 | PROVIDERS: PCP Internal Medicine; Visit Provider Internal Medicine | DX: Z76.0 Encounter for issue of repeat prescription (principal) ==

== ENCOUNTER 2023-12-13 14:22 | Outpatient (CLI) | payer OTHER, SELFPAY ==
--- OUTSIDE RECORDS SUMMARY | 2023-12-15 12:46 | XMS_ITS | Continuity of Care Document ---
Author Name Unknown Organization [facility] Address [address] [place] [address] Phone Care Team Providers Care Radio Talk Show Host Name Role Phone Unavailable Unavailable Unavailable Advance Directives Directive Yes / No Effective Date File Name No Information Encounters Encounter Description Practice Location Reason(s) For Visit Diagnoses Date Provider Providers Copied on Encounter [facility], [address], [place], [address], [place] tel:[phone] [facility] No Information Mar-0 [id number] No Information Family History Family Member Type Diagnosis Age At Onset No Information Payers Payer name Insurance type Covered democrat ID Authoriza tion(s) Medicare MB [id number] [facility] Ins CI [id number] Social History Type Description Quantity Date Captured Comments Sex Male Smoking Status No Information Chief Complaint And Reason For Visit No Information Reason For Referral Reason For Referral No Information History Of Present Illness Encounter Date Complaint History Of Prese nt Illness No Information Functional Status Date Functional Assessmen t No Information Instructions Date Instruction Additional Infor mation No Information Assessments Type Assessment Date No Information Patient Care Teams Name Effective Dates (start - stop) Status Members No Information
--- OUTSIDE RECORDS SUMMARY | 2023-12-15 12:47 | XMS_ITS ---
Author Name Unknown Organization [facility] Address [address] [place] [address] Care Team Providers Care Dentist/Owner Name Role Phone Unavailable Unavailable Unavailable Surgery Details Not on file Complications Check Surgery Details section. Procedure Estimated Blood Loss Check Surgery Details section. Procedure Findings Check Surgery Details section. Procedure Specimens Taken Check Surgery Details section.
--- OUTSIDE RECORDS SUMMARY | 2023-12-15 12:47 | XMS_ITS | Clinical Summary ---
Author Name Unknown Organization [facility] Address [place], [place] [address] Care Team Providers Care Brick Tosser Name Role Phone Carlos Cardenas MD Primary Care Provider Allergies Active Allergy Reactions Criticality Noted Date Comments Oxycodone Hallucinations High 07/24/2020 Hydrocodone-Acetaminophen Confusion 09/15/2011 hallucinations Medications Medication Sig Dispensed Refills Start Date End Date Status tamsulosin (FLOMAX) 0.4 mg capsule Take 2 capsules. by mouth once daily after a meal. 0 09/15/2011 Active furosemide (LASIX) 20 mg tablet Take 20 mg by mouth once daily. 0 08/01/2020 Active acetaminophen (TYLENOL EXTRA STRGTH) 500 mg tablet Take 1-2 Tablets by mouth every 4 hours if needed for Pain. Take 1-2 tablets every 4-6 hours as needed for pain. 4000 mg max per day. 0 Active Active Problems No known active problems Social History Tobacco Use Types Packs/Day Years Used Date Smoking Tobacco: Former Smokeless Tobacco: Never Tobacco Cessation:Counseling Given: Yes Alcohol Use Standard Drinks/Week Comments Yes 0 (1 standard drink = 0.6 oz pur e alcohol) Social Connections Answer Date Recorded Frequency of Communication with Friends and Fami ly Not on file 11/15/2021 Financial Resource Strain Answer Date R ecorded Difficulty of Paying Living Expenses Not on file 11/15/2021 Difficulty of Paying Living Expenses Not on file 11/15/2021 Sex and Gender Information Value Date Recorded Sex Assigned at Not on file Gender Identity Not on file Sexual Orientation Not on file Obstetrics History Last Filed Vital Signs Vital Sign Reading Time Taken Comments Blood Pressure 140/62 10/07/2022 4:12 PM MINIATURE SET BUILDER Pulse 57 10/07/2022 4:12 PM MINIATURE SET BUILDER Temperature 36.9 ??C (98.5 ??F) 10/07/2022 4:12 PM CS T Respiratory Rate 16 10/05/2022 9:05 AM MINIATURE SET BUILDER Oxygen Saturation 99% 10/07/2022 4:12 PM MINIATURE SET BUILDER Inhaled Oxygen Concentration - - Weight 86.4 kg (190 lb 6.4 oz) 08/15/2020 11:11 AM CDT Height - - Body Mass Index - - Plan of Treatment Health Maintenance Due Date Last Done Comments COVID-19 vaccine series (#1) 1941 Tdap 1952 Depression screening for age 12+ 1953 BMI (ht and wt on same day) for age 18+ 1959 Tetanus booster 1961 Zoster (shingles) series for age 50+ (1 of 2) 03/03/19 91 Medicare Wellness for age 65+ 2006 Pneumococcal series for age 65+ (1 of 1 - PCV) 006 Influenza for age 65+ 07/16/2023 Care Teams Brick Tosser Relationship Specialty Start Date End Date Carlos Cardenas MD [address] [place] [address] PCP - General 10/12/07
--- OUTSIDE RECORDS SUMMARY | 2023-12-15 12:47 | XMS_ITS | Clinical Summary ---
Author Name Unknown Organization [facility] Address [address] [place] [id number] Care Team Providers Care Preassembler And Inspector Name Role Phone Unavailable Primary Care Provider Unavailabl e Source Comments Patient records contain information from all sites at [facility]. For routine questions regarding patient records, call [phone] during business hours, M-F 8:00 AM - 5:00 PM Central Time. Record requests for emergency care only can be directed to [phone] at any time.[facility] Allergies Active Allergy Reactions Criticality Noted Date Comments Hydrocodone-Acetaminophe n Other (see comments) 09/15/2011 hallucinations Oxycodone Hallucinations High 07/24/2020 Medications Medication Sig Dispensed Refills Start Date End Date Status tamsulosin (FLOMAX) 0.4 mg 24 hr capsule Take 0.4 mg by mouth daily. 0 06/07/2019 Active furosemide (LASIX) 20 mg tablet Take 20-40 mg by mouth daily. For leg swelling 0 07/24/2019 Active acetaminophen (TYLENOL) 500 mg tablet Take 2 tablets (1,000 mg total) by mouth every 6 (six) hours as needed for pain. 0 08/16/2020 Active methocarbamoL (ROBAXIN) 750 mg tablet Take 1 tablet (750 mg total) by mouth every 6 (six) hours as needed for muscle spasms. 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 Unsteadiness Gait Disorder Non Orthopedic Limitation Of Activities Due To Disability Weakness Muscle Immunizations Name Administration Dates Next Due H1N1 All Forms 11/26/2009 Influenza (IM) Preservative Free 09/10/2008 Influenza Split 08/18/2010,08/15/2009,08/15/2007 Influenza high dose QV(65 ye ars or older) (PF) 08/16/2020 Influenza, Unspecified 09/07/2005 PPSV23 04/23/2006 Social History Tobacco Use Types Packs/Day Years Used Date Smoking Tobacco: Former Alcohol Use Standard Drinks/Week Comments Yes 7 (1 standard drink = 0.6 oz pur e alcohol) Humiliation, Afraid, Rape, and Kick questionnair e Answer Date Recorded Within the last year, have y ou been afraid of your partner or ex-partner? No 12/31/2021 Within the last year, have y ou been humiliated or emotionally abused in other ways by your partner or ex-partner? No Within the last year, have y ou been kicked, hit, slapped, or otherwise physically hurt by your partner or ex-partner? No 12/31/2021 Within the last year, have y ou been raped or forced to have any kind of sexual activity by your partner or ex-partner? No 12/31/2021 Social Connection and Isolation Panel [NHANES] A nswer Date Recorded In a typical week, how many times do you talk on the phone with family, friends, or neighbors? Three times a week 12/31/19 How often do you get togethe r with friends or relatives? Once a week 12/31/2021 How often do you attend [facility] or methodist services? 1 to 4 times per year 12/31/2021 Do you belong to any clubs o r organizations such as zoroastrian groups, unions, fraternal or athletic groups, or school groups? Yes 12/31/2021 How often do you attend meet ings of the clubs or organizations you belong to? 1 to 4 times per year 12/31/2021 Are you , , di vorced, , never , or living with a partner? 12/31/2021 AUDIT-C Answer Date Recorded Q1: How often do you have a drink containing alcohol? 4 or more times a week 12/31/2021 Q2: How many drinks containi ng alcohol do you have on a typical day when you are drinking? 1 or 2 2 Q3: How often do you have si x or more drinks on one occasion? Never 12/31/2021 Overall Financial Resource Strain (CARDIA) Answe r Date Recorded How hard is it for you to pa y for the very basics like food, housing, medical care, and heating? Not very hard 12/31/2021 PHQ-2 Answer Date Recorded PHQ-2 Score 3 08/22/2020 [facility] - Occupational Stress Questionnaire Answer Date Recorded Do you feel stress - tense, restless, nervous, or anxious, or unable to sleep at night because your mind is troubled all the time - these days? To some extent 12/31/2021 Exercise Vital Sign Answer Date Recorde d On average, how many days pe r week do you engage in moderate to strenuous exercise (like a brisk walk)? 0 days 12/31/2021 On average, how many minutes do you engage in exercise at this level? 0 min 12/31/2021 Hunger Vital Sign Answer Date Recorded Within the past 12 months, y ou worried that your food would run out before you got the money to buy more. Never true 12/31/19 22 Within the past 12 months, t he food you bought just didn't last and you didn't have money to get more. Never true 12/31/2021 PRAPARE - Transportation Answer Date Re corded In the past 12 months, has l ack of transportation kept you from medical appointments or from getting medications? No 12/16 In the past 12 months, has l ack of transportation kept you from meetings, work, or from getting things needed for daily living? No 12/31/2021 Housing Stability Vital Sign Answer Matthew e Recorded In the last 12 months, was t here a time when you were not able to pay the mortgage or rent on time? No 12/31/2021 In the last 12 months, how many places have you lived? 1 12/31/2021 In the last 12 months, was t here a time when you did not have a steady place to sleep or slept in a residential (including now)? No 12/31/2021 Nutrition Answer Date Recorded Nutrition: EVOO Fat Source No 12/31 On average, how many serving s of fruits and vegetables do you eat per day (serving size is equal to 1 cup or approximately the size of a tennis ball)? 2-3 12/31/2021 Dental Answer Date Recorded Dental: Regular Dentist Yes 12/31/19 Employment Answer Date Recorded Employment status Retired 12/31/2021 Education Answer Date Recorded What is the highest level of school you have completed or the highest degree you have received? Master's degree (e.g., MA, MS, tSephan, MEd, HANDBAG FINISHER, ERIC) 07/27/2019 Sex and Gender Information Value Date Recorded Sex Assigned at Male 12/31/2021 5:19 AM RECOVERY RN Gender Identity Male 12/31/2021 5:19 AM RECOVERY RN Sexual Orientation Straight 12/31/2021 5: 19 AM RECOVERY RN Last Filed Vital Signs Vital Sign Reading Time Taken Comments Blood Pressure 159/71 08/16/2020 3:55 PM CDT Pulse 58 08/16/2020 3:55 PM CDT Temperature 36.4 ??C (97.5 ??F) 08/16/2020 3:55 PM CD T Respiratory Rate 17 08/16/2020 3:55 PM CDT Oxygen Saturation 100% 08/16/2020 3:55 PM CDT Inhaled Oxygen Concentration - - Weight 76.8 kg (169 lb 5 oz) 08/15/2020 3:31 PM CDT Height 176 cm (5' 9.29) 08/15/2020 3:31 PM CDT Body Mass Index 24.79 08/15/2020 3:31 PM CDT Plan of Treatment Health Maintenance Due Date Last Done Comments DTaP,Tdap,and Td Vaccines (1 - Tdap) 07/11/2019 07/10/2019 Depression Screening (Annual PHQ-2) 11/15/2023 Fall Risk Screen (Annual) 11/15/2023 Pneumococcal vaccine (65+ years) Completed 01/07/20 16, 04/23/2006 Zoster Vaccines Completed 11/11/2020, 09/05/2020 COVID-19 Vaccine Completed 08/23/2023, , 06/18/2022, Additional history exists Influenza Vaccine Completed 08/23/2023, , 08/26/2021, Additional history exists Medical Devices Implanted Type Area Television Analyzer Device Identifier Shelf Expiration Date Model / Serial / Lot Mastergraft Matrix 20cc - [place] [id number] Implanted:Qty: 1 on 12/19/2010 Bone or Tissue Other/Legacy - See Implant Description Other/Legacy - See Implant Description Description:Device Manufactu rer - [place]. Body Location - Other. spine fusion. Device Status Text - [id number]. Antegra Pin Temporary Fixation - [place] [id number] Implanted:Qty: 2 on 08/13/2008 Hardware e.g. pins/screws /rods Depuy Synthes Description:Device Manufactu rer - Synthes. Device Status Text - [id number]. Halo-Ring Graph Cust-Lg - [place] [id number] Implanted:Qty: 1 on 01/07/2009 Hardware e.g. pins/screws /rods Teknovus Description:Device Manufactu rer - PMT Jennifer. Device Status Text - [id number]. Stardrive-Screw 6.0 Lk Canc 26mm - [place] [id number] Implanted:Qty: 4 on 08/13/2008 Spine Implant Depuy Synthes Description:Device Manufactu rer - Synthes. Device Status Text - [id number] [id number]. Lucina Ii Polyaxial-Screw 6.5mm X 40mm - [place] [id number] Implanted:Qty: 3 on 08/15/2008 Spine Implant Alda Description:Device Manufactu rer - Alda Jennifer.. Device Status Text - [id number] [id number]. Lucina Ii Polyaxial-Screw 6.5mm X 30mm - [place] [id number] Implanted:Qty: 1 on 01/07/2009 Spine Implant Alda Description:Device Manufactu rer - Alda Jennifer.. Device Status Text - [id number] [id number]. Lucina Ii [place] - [place] [id number] Implanted:Qty: 22 on 09/08/2010 Spine Implant Alda Description:Device Manufactu rer - Celsa Jennifer.. Device Status Text - [id number] [id number]. Lucina Ii [place] - [place] [id number] Implanted:Qty: 20 on 12/19/2010 Spine Implant Celsa Description:Device Manufactu rer - Celsa Jennifer.. Device Status Text - [id number] [id number]. Kit Sealant Tisseel 10ml Frozen - [place] [id number] Implanted:Qty: 1 on 01/07/2009 Vascular Other Velázquez Description:Device Manufactu rer - Velázquez. Device Status Text - [id number]. Filter Celect Femoral 65cm - [place] [id number] Implanted:Qty: 1 on 01/04/2009 Vascular or IVC Filter [employer] Description:Device Manufactu rer - [employer] Device Status Text - [id number]. Advance Directives For more information, please contact: [phone] Documents on File Type Date Recorded Patient Infant Babysitter Expl anation Advance Directives 08/13/2008 12:00 AM Leg acy document. See document viewer. Latest Code Status on File Code Status Date Activated Date Inactivated Comments Full Code 08/15/2020 11:11 PM 08/16/2020 6:25 PM Question Answer Comments Full Code: Not Discussed Due to: Patient not available
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
--- OUTSIDE RECORDS SUMMARY | 2023-12-15 12:47 | XMS_ITS | Referral Summary ---
Author Name Unknown Organization [facility] Address [address] [place] [address] Care Team Providers Care Housekeeper Supervisor Name Role Phone Unavailable Primary Care Provider Unavailabl e Source Comments Patient records contain information from all sites at [facility]. For routine questions regarding patient records, call [phone] during business hours, M-F 8:00 AM - 5:00 PM Central Time. Record requests for emergency care only can be directed to [phone] at any time.[facility] Allergies Active Allergy Reactions Criticality Noted [...] week 12/31/2021 How often do you attend [facility] or yazidism services? 1 to 4 times per year [...] Answer Date Recorded PHQ-2 Score 3 08/22/2020 [facility] of Occupat ional [facility] - Occupational Stress Questionnaire Answer Date [...] place to sleep or slept in a assisted (including now)? No 12/31/2021 Nutrition Answer Date [...] have received? Master's degree (e.g., MA, MS, Stephan, MEd, SORTER UPHOLSTERY PARTS, ERIC) 07/27/2019 Sex and Gender Information Value Date Recorded Sex Assigned at Male 12/31/2021 5:19 AM MOTTLE LAY UP OPERATOR Gender Identity Male 12/31/2021 5:19 AM MOTTLE LAY UP OPERATOR Sexual Orientation Straight 12/31/2021 5: 19 AM MOTTLE LAY UP OPERATOR Last Filed Vital Signs Vital Sign Reading [...] 08/15/2020 3:31 PM CDT Plan of Treatment Not on file Medical Devices Implanted Type Area Gospel Singer Device Identifier Shelf Expiration Date Model / Serial / Lot Mastergraft Matrix 20cc - [place] [id number] Implanted:Qty: 1 on 12/19/2010 Bone or Tissue Other/Legacy - See Implant Description Other/Legacy - See Implant Description Description:Device Manufactu rer - Twitt2go. Body Location - Other. spine fusion. Device Status Text - [id number]. Antegra Pin Temporary Fixation - [place] [id number] Implanted:Qty: 2 on 08/13/2008 Hardware e.g. pins/screws /rods Depuy Synthes Description:Device Manufactu rer - Synthes. Device Status Text - HARDWARE-43744. Halo-Ring Graph Cust-Lg - [place] 9977 Implanted:Qty: 1 on 01/07/2009 Hardware e.g. pins/screws /rods PMT [employer] Description:Device Manufactu rer - PMT Jennifer. Device Status Text - HARDWARE-9977. Stardrive-Screw 6.0 Lk Canc 26mm - [place] [id number] Implanted:Qty: 4 on 08/13/2008 Spine Implant Depuy Synthes Description:Device Manufactu rer - Synthes. Device Status Text - SPINE IMP-29763. Lucina Ii Polyaxial-Screw 6.5mm X 40mm - [place] [id number] Implanted:Qty: 3 on 08/15/2008 Spine Implant Celsa Description:Device Manufactu rer - Celsa Jennifer.. Device Status Text - SPINE IMP-04952. Lucina Ii Polyaxial-Screw 6.5mm X 30mm - [place] [id number] Implanted:Qty: 1 on 01/07/2009 Spine Implant [place] Description:Device Manufactu rer - Celsa Jennifer.. Device Status Text - SPINE IMP-23926. Lucina Ii [place] - [place] [id number] Implanted:Qty: 22 on 09/08/2010 Spine Implant Celsa Description:Device Manufactu rer - Celsa Jennifer.. Device Status Text - SPINE IMP-72232. Lucina Ii [place] - [place] [id number] Implanted:Qty: 20 on 12/19/2010 Spine Implant [place]ix Description:Device Manufactu rer - Celsa Jennifer.. Device Status Text - SPINE IMP-84574. Kit Sealant Tisseel 10ml Frozen - [place] [id number] Implanted:Qty: 1 on 01/07/2009 Vascular Other Velázquez Description:Device Manufactu rer - Velázquez. Device Status Text - VASCOTHER-[id number]. Filter Celect Femoral 65cm - [place] [id number] Implanted:Qty: 1 on 01/04/2009 Vascular or IVC Filter [employer] Description:Device Manufactu rer - Cook Inc. Device Status Text - VASCFILTR-76252. Advance Directives For more information, please contact: [phone] Documents on File Type Date Recorded Patient Lockstitch Zipper Setter Expl anation Advance Directives 08/13/2008 12:00 AM Leg acy document. See document viewer. Latest Code Status on File Code Status Date Activated Date Inactivated Comments Full Code 08/15/2020 11:11 PM 08/16/2020 6:25 PM Question Answer Comments Full Code: Not Discussed Due to: Patient not available
== END 2023-12-13 14:23 | disposition home or self-care (01) ==
LOC: NFLDREF 12-15 12:45
PROVIDERS: PCP Internal Medicine; Referring Provider Internal Medicine; Visit Provider Internal Medicine
DX: R32 Unspecified urinary incontinence (principal); N39.0 Urinary tract infection, site not specified
CPT/HCPCS: 87086; 87186

== ENCOUNTER 2023-12-18 05:58 | Outpatient (CLI) | payer OTHER, SELFPAY ==
--- OUTSIDE RECORDS SUMMARY | 2023-12-20 11:42 | XMS_ITS ---
Author Name Unknown Organization [facility] Address [address] [place] [address] Care Team Providers Care Director Mobile [employer] Name Role Phone Unavailable Unavailable Unavailable Surgery Details Not on file Complications Check Surgery Details section. Procedure Estimated Blood Loss Check Surgery Details section. Procedure Findings Check Surgery Details section. Procedure Specimens Taken Check Surgery Details section.
--- OUTSIDE RECORDS SUMMARY | 2023-12-20 11:42 | XMS_ITS | Clinical Summary ---
Author Name Unknown Organization [facility] Address [address] [place] [address] Care Team Providers Care Durability Technician Name Role Phone Unavailable Primary Care Provider Unavailabl e Source Comments Patient records contain information from all sites at [facility]. For routine questions regarding patient records, call [phone] during business hours, M-F 8:00 AM - 5:00 PM Central Time. Record requests for emergency care only can be directed to [phone] at any time.[facility] Allergies Active Allergy Reactions Criticality Noted Date [...] or older) (PF) 08/16/2020 Influenza, Unspecified 09/07/2005 PPSV23(Discontinued) 04/23/2006 Social History Tobacco Use Types Packs/Day [...] week 12/31/2021 How often do you attend [facility] or pentecostalism services? 1 to 4 times per year 12/31/2021 Do you belong to any clubs o r organizations such as uatsdin groups, unions, fraternal or athletic groups, or [...] Answer Date Recorded PHQ-2 Score 3 08/22/2020 [facility] of Occupat ional Health - Occupational Stress Questionnaire Answer Date Recorded [...] place to sleep or slept in a senior living (including now)? No 12/31/2021 Nutrition Answer Date [...] Master's degree (e.g., MA, MS, Stephan, MEd, CARRY OUT CLERK, ERIC) 07/27/2019 Sex and Gender Information Value Date Recorded Sex Assigned at Male 12/31/2021 5:19 AM CHAIR MENDER Gender Identity Male 12/31/2021 5:19 AM CHAIR MENDER Sexual Orientation Straight 12/31/2021 5: 19 AM CHAIR MENDER Last Filed Vital Signs Vital Sign Reading [...] history exists Medical Devices Implanted Type Area Tree Surgeon Device Identifier Shelf Expiration Date Model / Serial / Lot Mastergraft Matrix 20cc - [place] [id number] Implanted:Qty: 1 on 12/19/2010 Bone or Tissue Other/Legacy - See Implant Description Other/Legacy - See Implant Description Description:Device Manufactu rer - Sofnighat Pachecoek. Body Location - Other. spine fusion. Device Status Text - [id number]. Antegra Pin Temporary Fixation - [place] [id number] Implanted:Qty: 2 on 08/13/2008 Hardware e.g. pins/screws /rods Depuy Synthes Description:Device Manufactu rer - Synthes. Device Status Text - HARDWARE-82990. Halo-Ring Graph Cust-Lg - [place] 9977 Implanted:Qty: 1 on 01/07/2009 Hardware e.g. pins/screws /rods Thumb Arcade Description:Device Manufactu rer - PMT Jennifer. Device Status Text - HARDWARE-9977. Stardrive-Screw 6.0 Lk Canc 26mm - [place] [id number] Implanted:Qty: 4 on 08/13/2008 Spine Implant Depuy Synthes Description:Device Manufactu rer - Synthes. Device Status Text - SPINE IMP-32027. Lucina Ii Polyaxial-Screw 6.5mm X 40mm - [place] [id number] Implanted:Qty: 3 on 08/15/2008 Spine Implant [place] Description:Device Manufactu rer - Celsa Jennifer.. Device Status Text - SPINE IMP-25689. Lucina Ii Polyaxial-Screw 6.5mm X 30mm - [place] [id number] Implanted:Qty: 1 on 01/07/2009 Spine Implant [place] Description:Device Manufactu rer - [place] Jennifer.. Device Status Text - SPINE IMP-68595. Lucina Ii Blair - [place] [id number] Implanted:Qty: 22 on 09/08/2010 Spine Implant [place] Description:Device Manufactu rer - Celsa Jennifer.. Device Status Text - SPINE IMP-29852. Lucina Ii Blair - [place] [id number] Implanted:Qty: 20 on 12/19/2010 Spine Implant Celsa Description:Device Manufactu rer - [place] Jennifer.. Device Status Text - SPINE IMP-21027. Kit Sealant Tisseel 10ml Frozen - [place] [id number] Implanted:Qty: 1 on 01/07/2009 Vascular Other Velázquez Description:Device Manufactu rer - Velázquez. Device Status Text - VASCOTHER-026360. Filter Celect Femoral 65cm - [place] [id number] Implanted:Qty: 1 on 01/04/2009 Vascular or IVC Filter [employer] Description:Device Manufactu rer - Cook Inc. Device Status Text - VASCFILTR-11828. Advance Directives For more information, please contact: [phone] Documents on File Type Date Recorded Patient Binding Nicker Expl anation Advance Directives 08/13/2008 12:00 AM Leg acy document. See document viewer. Latest Code Status on File Code Status Date Activated Date Inactivated Comments Full Code 08/15/2020 11:11 PM 08/16/2020 6:25 PM Question Answer Comments Full Code: Not Discussed Due to: Patient not available
--- OUTSIDE RECORDS SUMMARY | 2023-12-20 11:42 | XMS_ITS | Clinical Summary ---
Author Name Unknown Organization [facility] Address [place], [place] [address] Care Team Providers Care Driver Salesman Name Role Phone Carlos Cardenas MD Primary [...] Comments Blood Pressure 140/62 10/07/2022 4:12 PM GROUND TRANSPORTATION OPERATOR Pulse 57 10/07/2022 4:12 PM GROUND TRANSPORTATION OPERATOR Temperature 36.9 ??C (98.5 ??F) 10/07/2022 4:12 PM CS T Respiratory Rate 16 10/05/2022 9:05 AM GROUND TRANSPORTATION OPERATOR Oxygen Saturation 99% 10/07/2022 4:12 PM GROUND TRANSPORTATION OPERATOR Inhaled Oxygen Concentration - - Weight 86.4 [...] Influenza for age 65+ 07/16/2023 Care Teams Driver Salesman Relationship Specialty Start Date End Date Carlos Cardenas MD [address] [place] [address] PCP - General 10/12/07
--- OUTSIDE RECORDS SUMMARY | 2023-12-20 11:42 | XMS_ITS | Encounter Summary ---
Author Name Unknown Organization [facility] Address [address] [place] [address] Care Team Providers Care Senior Administrative Assistant Name Role Phone Unavailable Primary Care Provider Unavailabl e Encounter Details Date Type Department Care Team (Late st Contact Info) Description 01/09/2009 Historical Ophthalmology RST OPH Hyun Owusu M.D. Social History Tobacco Use Types Packs/Day Years Used Date Smoking Tobacco: Never Assessed Sex and Gender Information Value Date Recorded Sex Assigned at Male 12/31/2021 5:19 AM CYBER DEFENSE ANALYST Gender Identity Male 12/31/2021 5:19 AM CYBER DEFENSE ANALYST Sexual Orientation Straight 12/31/2021 5: 19 AM CYBER DEFENSE ANALYST documented as of this encounter Progress Notes * Hyun Owusu M.D. - 01/09/2009 11:06 AM CST Eye General HISTORY OF PRESENT ILLNESS Patient was seen bedside in Thoracic Vascular ICU today. 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 Right eye has been bothering him since surgery. Has a hard time keeping the right eye open due to irritation. When seed technician arrived to bedside there was matter [...] has as above. Pain 100% gone after seed technician placed proparaciane drops. IMPRESSION / REPORT / PLAN Consult requested by: Dr. Law [phone] #1 Corneal abrasion, right eye Patient has [...] right eye CDM Reports - EYEGEN Id: [id number] Status: Fnl documented in this encounter Plan [...]
--- OUTSIDE RECORDS SUMMARY | 2023-12-20 11:42 | XMS_ITS | Referral Summary ---
Author Name Unknown Organization [facility] Address [address] [place] [address] Care Team Providers Care Health Unit Supervisor Name Role Phone Unavailable Primary Care Provider Unavailabl e Source Comments Patient records contain information from all sites at [facility]. For routine questions regarding patient records, call [phone] during business hours, M-F 8:00 AM - 5:00 PM Central Time. Record requests for emergency care only can be directed to [phone] at any time.[facility] Allergies Active Allergy Reactions Criticality Noted Date [...] week 12/31/2021 How often do you attend [facility] or christianity services? 1 to 4 times per year 12/31/2021 Do you belong to any clubs o r organizations such as hindu groups, unions, fraternal or athletic groups, or [...] Answer Date Recorded PHQ-2 Score 3 08/22/2020 [facility] of Occupat ional Health - Occupational [...] place to sleep or slept in a custodial (including now)? No 12/31/2021 Nutrition Answer Date [...] Master's degree (e.g., MA, MS, Stephan, MEd, ELECTRONICS REPAIR TECHNICIAN, ERIC) 07/27/2019 Sex and Gender Information Value Date Recorded Sex Assigned at Male 12/31/2021 5:19 AM CHEMICAL WORKER Gender Identity Male 12/31/2021 5:19 AM CHEMICAL WORKER Sexual Orientation Straight 12/31/2021 5: 19 AM CHEMICAL WORKER Last Filed Vital Signs Vital Sign Reading [...] on file Medical Devices Implanted Type Area Custom Protection Officer Device Identifier Shelf Expiration Date Model / Serial / Lot Mastergraft Matrix 20cc - [place] [id number] Implanted:Qty: 1 on 12/19/2010 Bone or Tissue Other/Legacy - See Implant Description Other/Legacy - See Implant Description Description:Device Manufactu rer - Admeld. Body Location - Other. spine fusion. Device Status Text - [id number]. Antegra Pin Temporary Fixation - [place] [id number] Implanted:Qty: 2 on 08/13/2008 Hardware e.g. pins/screws /rods Depuy Synthes Description:Device Manufactu rer - Synthes. Device Status Text - HARDWARE-96857. Halo-Ring Graph Cust-Lg - [place] [id number] Implanted:Qty: 1 on 01/07/2009 Hardware e.g. pins/screws /rods PMT Corporation Description:Device Manufactu rer - PMT Jennifer. Device Status Text - HARDWARE-9977. Stardrive-Screw 6.0 Lk Canc 26mm - [place] [id number] Implanted:Qty: 4 on 08/13/2008 Spine Implant Depuy Synthes Description:Device Manufactu rer - Synthes. Device Status Text - SPINE IMP-16439. Lucina Ii Polyaxial-Screw 6.5mm X 40mm - [place] [id number] Implanted:Qty: 3 on 08/15/2008 Spine Implant [place] Description:Device Manufactu rer - Celsa Jennifer.. Device Status Text - SPINE IMP-43022. Lucina Ii Polyaxial-Screw 6.5mm X 30mm - [place] [id number] Implanted:Qty: 1 on 01/07/2009 Spine Implant Celsa Description:Device Manufactu rer - Celsa Jennifer.. Device Status Text - SPINE IMP-78287. Lucina Ii Blair - [place] [id number] Implanted:Qty: 22 on 09/08/2010 Spine Implant [place] Description:Device Manufactu rer - [place] Jennifer.. Device Status Text - SPINE IMP-70577. Lucina Ii Blair - [place] [id number] Implanted:Qty: 20 on 12/19/2010 Spine Implant Celsa Description:Device Manufactu rer - Celsa Jennifer.. Device Status Text - SPINE IMP-90849. Kit Sealant Tisseel 10ml Frozen - [place] [id number] Implanted:Qty: 1 on 01/07/2009 Vascular Other Velázquez Description:Device Manufactu rer - Velázquez. Device Status Text - VASCOTHER-833456. Filter Celect Femoral 65cm - [place] [id number] Implanted:Qty: 1 on 01/04/2009 Vascular or IVC Filter [employer]. Description:Device Manufactu rer - Cook Inc. Device Status Text - VASCFILTR-63213. Advance Directives For more information, please contact: [phone] Documents on File Type Date Recorded Patient Cap Jewel Plate Assembler Expl anation Advance Directives 08/13/2008 12:00 AM Leg acy document. See document viewer. Latest Code Status on File Code Status Date Activated Date Inactivated Comments Full Code 08/15/2020 11:11 PM 08/16/2020 6:25 PM Question Answer Comments Full Code: Not Discussed Due to: Patient not available
--- OUTSIDE RECORDS SUMMARY | 2023-12-20 11:42 | XMS_ITS | Continuity of Care Document ---
Author Name Unknown Organization [facility] Address [address] [place] [address] Phone Care Team Providers Care Breaker Machine Tender Name Role Phone Unavailable Unavailable Unavailable Advance Directives Directive Yes / No Effective Date File Name No Information Encounters Encounter Description Practice Location Reason(s) For Visit Diagnoses Date Provider Providers Copied on Encounter [facility], [address], [place], [address], [place] tel:[phone] [facility] No Information Mar-0 6-200 9 No Information Family History Family Member Type Diagnosis Age At Onset No Information Payers Payer name Insurance type Covered libertarian ID Authoriza tion(s) Medicare MB [id number] [facility] Ins [place] [id number] Social History Type Description Quantity Date Captured [...]
== END 2023-12-18 05:59 | disposition home or self-care (01) ==
LOC: AMB 12-20 11:40
PROVIDERS: PCP Internal Medicine; Visit Provider Internal Medicine
DX: R53.1 Weakness (principal)
CPT/HCPCS: A0998

== ENCOUNTER 2023-12-22 17:00 | Outpatient (CLI) | payer OTHER, SELFPAY ==
--- OUTSIDE RECORDS SUMMARY | 2023-12-22 17:02 | XMS_ITS ---
Author Name Unknown Organization [facility] Address [address] [place] [address] Care Team Providers Care Compugraph Operator Name Role Phone Unavailable Unavailable Unavailable Surgery Details Not on file Complications Check Surgery Details section. Procedure Estimated Blood Loss Check Surgery Details section. Procedure Findings Check Surgery Details section. Procedure Specimens Taken Check Surgery Details section.
--- OUTSIDE RECORDS SUMMARY | 2023-12-22 17:02 | XMS_ITS | Referral Summary ---
Author Name Unknown Organization [facility] Address [address] [place] [address] Care Team Providers Care Hand Printed Circuit Board Assembler Name Role Phone Unavailable Primary Care Provider Unavailabl e Source Comments Patient records contain information from all sites at [facility]. For routine questions regarding patient records, call [phone] during business hours, M-F 8:00 AM - 5:00 PM Central Time. Record requests for emergency care only can be directed to [phone] at any time.[facility] Allergies Active Allergy Reactions Criticality [...] week 12/31/2021 How often do you attend [facility] or temple services? 1 to 4 times per year 12/31/2021 Do you belong to any clubs o r organizations such as synagogue groups, unions, fraternal or athletic groups, or [...] [facility] of Occupat ional Health - Occupational Stress [...] place to sleep or slept in a longterm (including now)? No 12/31/2021 Nutrition Answer Date [...] Master's degree (e.g., MA, MS, Stephan, MEd, RESPIRATORY TECH, ERIC) 07/27/2019 Sex and Gender Information Value Date Recorded Sex Assigned at Male 12/31/2021 5:19 AM WEATHER OBSERVER Gender Identity Male 12/31/2021 5:19 AM WEATHER OBSERVER Sexual Orientation Straight 12/31/2021 5: 19 AM WEATHER OBSERVER Last Filed Vital Signs Vital Sign Reading [...] on file Medical Devices Implanted Type Area Envelope Stamping Machine Operator Device Identifier Shelf Expiration Date Model / Serial / Lot Mastergraft Matrix 20cc - [place] [id number] Implanted:Qty: 1 on 12/19/2010 Bone or Tissue Other/Legacy - See Implant Description Other/Legacy - See Implant Description Description:Device Manufactu rer - [employer]ples [employer]. Body Location - Other. spine fusion. Device Status Text - [id number]. Antegra Pin Temporary Fixation - [place] [id number] Implanted:Qty: 2 on 08/13/2008 Hardware e.g. pins/screws /rods Depuy Synthes Description:Device Manufactu rer - Synthes. Device Status Text - HARDWARE-82921. Halo-Ring Graph Cust-Lg - [place] [id number] Implanted:Qty: 1 on 01/07/2009 Hardware e.g. pins/screws /rods PMT Corporation Description:Device Manufactu rer - PMT Jennifer. Device Status Text - HARDWARE-9977. Stardrive-Screw 6.0 Lk Canc 26mm - [place] [id number] Implanted:Qty: 4 on 08/13/2008 Spine Implant Depuy Synthes Description:Device Manufactu rer - Synthes. Device Status Text - SPINE IMP-75358. Lucina Ii Polyaxial-Screw 6.5mm X 40mm - [place] [id number] Implanted:Qty: 3 on 08/15/2008 Spine Implant [place] Description:Device Manufactu rer - Celsa Jennifer.. Device Status Text - SPINE IMP-95644. Lucina Ii Polyaxial-Screw 6.5mm X 30mm - [place] [id number] Implanted:Qty: 1 on 01/07/2009 Spine Implant Celsa Description:Device Manufactu rer - Celsa Jennifer.. Device Status Text - SPINE IMP-35957. Lucina Ii Blair - [place] [id number] Implanted:Qty: 22 on 09/08/2010 Spine Implant [place] Description:Device Manufactu rer - [place] Jennifer.. Device Status Text - SPINE IMP-05390. Lucina Ii Blair - [place] [id number] Implanted:Qty: 20 on 12/19/2010 Spine Implant Celsa Description:Device Manufactu rer - Celsa Jennifer.. Device Status Text - SPINE IMP-64825. Kit Sealant Tisseel 10ml Frozen - [place] [id number] Implanted:Qty: 1 on 01/07/2009 Vascular Other Velázquez Description:Device Manufactu rer - Velázquez. Device Status Text - VASCOTHER-685328. Filter Celect Femoral 65cm - [place] [id number] Implanted:Qty: 1 on 01/04/2009 Vascular or IVC Filter [employer] Description:Device Manufactu rer - Cook Inc. Device Status Text - VASCFILTR-86301. Advance Directives For more information, please contact: [phone] Documents on File Type Date Recorded Patient Candy Starch Mold Printer Expl anation Advance Directives 08/13/2008 12:00 AM Leg acy document. See document viewer. Latest Code Status on File Code Status Date Activated Date Inactivated Comments Full Code 08/15/2020 11:11 PM 08/16/2020 6:25 PM Question Answer Comments Full Code: Not Discussed Due to: Patient not available
--- OUTSIDE RECORDS SUMMARY | 2023-12-22 17:02 | XMS_ITS | Clinical Summary ---
Author Name Unknown Organization [facility] Address [place], [place] [address] Care Team Providers Care Brass Plater Name Role Phone Carlos Cardenas MD Primary Care Provider [phone] Allergies Active Allergy Reactions Criticality Noted Date [...] Comments Blood Pressure 140/62 10/07/2022 4:12 PM CROP AND SOIL TECHNICIAN Pulse 57 10/07/2022 4:12 PM CROP AND SOIL TECHNICIAN Temperature 36.9 ??C (98.5 ??F) 10/07/2022 4:12 PM CS T Respiratory Rate 16 10/05/2022 9:05 AM CROP AND SOIL TECHNICIAN Oxygen Saturation 99% 10/07/2022 4:12 PM CROP AND SOIL TECHNICIAN Inhaled Oxygen Concentration - - Weight 86.4 [...] Influenza for age 65+ 07/16/2023 Care Teams Brass Plater Relationship Specialty Start Date End Date Carlos Cardenas MD [address] [place] [address] PCP - General 10/12/07
--- OUTSIDE RECORDS SUMMARY | 2023-12-22 17:02 | XMS_ITS | Encounter Summary ---
Author Name Unknown Organization [facility] Address [address] [place] [address] Care Team Providers Care Hardscape Foreman Name Role Phone Unavailable Primary Care Provider Unavailabl e Encounter Details Date Type Department Care Team (Late st Contact Info) Description 01/09/2009 Historical Ophthalmology RST OPH Hyun Owusu M.D. Social History Tobacco Use Types Packs/Day Years Used Date Smoking Tobacco: Never Assessed Sex and Gender Information Value Date Recorded Sex Assigned at Male 12/31/2021 5:19 AM SPINE SPECIALIST Gender Identity Male 12/31/2021 5:19 AM SPINE SPECIALIST Sexual Orientation Straight 12/31/2021 5: 19 AM SPINE SPECIALIST documented as of this encounter Progress Notes * Hyun Owusu M.D. - 01/09/2009 11:06 AM CST Eye General HISTORY OF PRESENT ILLNESS Patient was seen bedside in Thoracic Vascular ICU today. 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 Right eye has been bothering him since surgery. Has a hard time keeping the right eye open due to irritation. When solar panel technician arrived to bedside there was matter [...] has as above. Pain 100% gone after solar panel technician placed proparaciane drops. IMPRESSION / REPORT / PLAN Consult requested by: Dr. Law [id number] #1 Corneal abrasion, right eye Patient has [...] right eye CDM Reports - EYEGEN Id: [id number] Status: Fnl documented in this encounter Plan [...]
--- OUTSIDE RECORDS SUMMARY | 2023-12-22 17:02 | XMS_ITS | Continuity of Care Document ---
Author Name Unknown Organization [facility] Address [address] [place] [address] Phone Care Team Providers Care Warm In Worker Name Role Phone Unavailable Unavailable Unavailable Advance Directives Directive Yes / No Effective Date File Name No Information Encounters Encounter Description Practice Location Reason(s) For Visit Diagnoses Date Provider Providers Copied on Encounter [facility], [address], [place], [address], [place] tel:[phone] [facility] - [facility] No Information Mar-0 6-200 [id number] No Information Family History Family Member Type Diagnosis Age At Onset No Information Payers Payer name Insurance type Covered democrat ID Authoriza tion(s) Medicare MB [id number] [facility] Ins CI [id number] Social History Type Description Quantity Date Captured [...]
--- OUTSIDE RECORDS SUMMARY | 2023-12-22 17:02 | XMS_ITS | Clinical Summary ---
Author Name Unknown Organization [facility] Address [address] [place] [address] Care Team Providers Care Singe Winder Name Role Phone Unavailable Primary Care Provider Unavailabl e Source Comments Patient records contain information from all sites at [facility]. For routine questions regarding patient records, call [phone] during business hours, M-F 8:00 AM - 5:00 PM Central Time. Record requests for emergency care only can be directed to [phone] at any time.[facility] Allergies Active Allergy Reactions Criticality Noted [...] week 12/31/2021 How often do you attend [facility] or [facility] services? 1 to 4 times per year 12/31/2021 Do you belong to any clubs o r organizations such as gnosticist groups, unions, fraternal or athletic groups, or [...] Answer Date Recorded PHQ-2 Score 3 08/22/2020 [facility] - [...] place to sleep or slept in a nursing home (including now)? No 12/31/2021 Nutrition Answer Date [...] Master's degree (e.g., MA, MS, Stephan, MEd, [employer], ERIC) 07/27/2019 Sex and Gender Information Value Date Recorded Sex Assigned at Male 12/31/2021 5:19 AM SLIVER FORMER Gender Identity Male 12/31/2021 5:19 AM SLIVER FORMER Sexual Orientation Straight 12/31/2021 5: 19 AM SLIVER FORMER Last Filed Vital Signs Vital Sign Reading [...] history exists Medical Devices Implanted Type Area Shader And Toner Device Identifier Shelf Expiration Date Model / Serial / Lot Mastergraft Matrix 20cc - [place] [id number] Implanted:Qty: 1 on 12/19/2010 Bone or Tissue Other/Legacy - See Implant Description Other/Legacy - See Implant Description Description:Device Manufactu rer - Sofnighat Pachecoek. Body Location - Other. spine fusion. Device Status Text - [id number]. Antegra Pin Temporary Fixation - [place] [id number] Implanted:Qty: 2 on 08/13/2008 Hardware e.g. pins/screws /rods Depuy Synthes Description:Device Manufactu rer - Synthes. Device Status Text - [id number]. Halo-Ring Graph Cust-Lg - [place] [id number] Implanted:Qty: 1 on 01/07/2009 Hardware e.g. pins/screws /rods [id number] Description:Device Manufactu rer - PMT Jennifer. Device Status Text - [id number]. Stardrive-Screw 6.0 Lk Canc 26mm - [place] [id number] Implanted:Qty: 4 on 08/13/2008 Spine Implant Depuy Synthes Description:Device Manufactu rer - Synthes. Device Status Text - SPINE [id number]. Lucina Ii Polyaxial-Screw 6.5mm X 40mm - [place] [id number] Implanted:Qty: 3 on 08/15/2008 Spine Implant Forrest Description:Device Manufactu rer - Celsa Jennifer.. Device Status Text - SPINE [id number]. Lucina Ii Polyaxial-Screw 6.5mm X 30mm - [place] [id number] Implanted:Qty: 1 on 01/07/2009 Spine Implant Forrest Description:Device Manufactu rer - Forrest Jennifer.. Device Status Text - SPINE [id number]. Lucina Ii Blair - [place] [id number] Implanted:Qty: 22 on 09/08/2010 Spine Implant Forrest Description:Device Manufactu rer - Celsa Jennifer.. Device Status Text - SPINE [id number]. Lucina Ii [place] - [place] [id number] Implanted:Qty: 20 on 12/19/2010 Spine Implant Celsa Description:Device Manufactu rer - Forrest Jennifer.. Device Status Text - SPINE [id number]. Kit Sealant Tisseel 10ml Frozen - [place] [id number] Implanted:Qty: 1 on 01/07/2009 Vascular Other Velázquez Description:Device Manufactu rer - Velázquez. Device Status Text - [id number]. Filter Celect Femoral 65cm - [place] [id number] Implanted:Qty: 1 on 01/04/2009 Vascular or IVC Filter [employer]. Description:Device Manufactu rer - Cook Inc. Device Status Text - [id number]. 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 See document viewer. Latest Code Status on File Code Status Date Activated Date Inactivated Comments Full Code 08/15/2020 11:11 PM 08/16/2020 6:25 PM Question Answer Comments Full Code: Not Discussed Due to: Patient not available
== END 2023-12-22 17:01 | disposition home or self-care (01) ==
LOC: NFLDUCREF 17:00
PROVIDERS: PCP Internal Medicine; Visit Provider Physician Assistant
DX: T30.0 Burn of unspecified body region, unspecified degree (principal)
CPT/HCPCS: 87070; 87186

== ENCOUNTER 2024-01-06 09:02 | Outpatient (CLI) | payer OTHER, SELFPAY | END 2024-01-06 09:03 | disposition home or self-care (01) | LOC: WOUND 09:04 | PROVIDERS: PCP Internal Medicine; Visit Provider Nurse Practitioner Family | DX: T22.321A Burn of third degree of right elbow, initial encounter (principal); X15.0XXA Contact with hot stove (kitchen), initial encounter; G99.0 Autonomic neuropathy in diseases classified elsewhere; G71.09 Other specified muscular dystrophies | CPT/HCPCS: 16020; G0463 ==

== ENCOUNTER 2024-01-10 13:03 | Outpatient (CLI) | payer OTHER, SELFPAY | END 2024-01-10 13:04 | disposition home or self-care (01) | LOC: WOUND 13:03 | PROVIDERS: PCP Internal Medicine; Visit Provider Physician Assistant | DX: T22.321A Burn of third degree of right elbow, initial encounter (principal); X15.0XXA Contact with hot stove (kitchen), initial encounter; G99.0 Autonomic neuropathy in diseases classified elsewhere; G71.09 Other specified muscular dystrophies | CPT/HCPCS: 11042 ==

== ENCOUNTER 2024-01-17 15:48 | Outpatient (CLI) | payer OTHER, SELFPAY | END 2024-01-17 15:49 | disposition home or self-care (01) | LOC: WOUND 15:48 | PROVIDERS: PCP Internal Medicine; Visit Provider Nurse Practitioner Family | DX: T22.321A Burn of third degree of right elbow, initial encounter (principal); G99.0 Autonomic neuropathy in diseases classified elsewhere; X15.0XXA Contact with hot stove (kitchen), initial encounter | CPT/HCPCS: 16020 ==

== ENCOUNTER 2024-01-24 13:58 | Outpatient (CLI) | payer OTHER, SELFPAY | END 2024-01-24 13:59 | disposition home or self-care (01) | LOC: WOUND 13:58 | PROVIDERS: PCP Internal Medicine; Visit Provider Nurse Practitioner Family | DX: T22.321A Burn of third degree of right elbow, initial encounter (principal); G71.09 Other specified muscular dystrophies; G99.0 Autonomic neuropathy in diseases classified elsewhere | CPT/HCPCS: 16020 ==

== ENCOUNTER 2024-02-14 15:32 | Outpatient (CLI) | payer OTHER, SELFPAY | END 2024-02-14 15:33 | disposition home or self-care (01) | LOC: WOUND 15:32 | PROVIDERS: PCP Internal Medicine; Visit Provider Nurse Practitioner Family | DX: T22.321A Burn of third degree of right elbow, initial encounter (principal); X15.0XXA Contact with hot stove (kitchen), initial encounter; G71.09 Other specified muscular dystrophies; G99.0 Autonomic neuropathy in diseases classified elsewhere | CPT/HCPCS: 16020 ==

== ENCOUNTER 2024-03-15 09:05 | Outpatient (CLI) | payer OTHER, SELFPAY ==
--- OUTSIDE RECORDS SUMMARY | 2024-03-20 18:06 | XMS_ITS | Clinical Summary ---
Author Name Unknown Organization [facility] Address [place], [place] [address] Care Team Providers Care Rugby Union Footballer Name Role Phone Carlos Cardenas MD Primary [...] Comments Blood Pressure 140/62 10/07/2022 4:12 PM TRANSMITTER OPERATOR Pulse 57 10/07/2022 4:12 PM TRANSMITTER OPERATOR Temperature 36.9 ??C (98.5 ??F) 10/07/2022 4:12 PM CS T Respiratory Rate 16 10/05/2022 9:05 AM TRANSMITTER OPERATOR Oxygen Saturation 99% 10/07/2022 4:12 PM TRANSMITTER OPERATOR Inhaled Oxygen Concentration - - Weight [...] Influenza for age 65+ 07/16/2024 Care Teams Rugby Union Footballer Relationship Specialty Start Date End Date Carlos Cardenas MD [address] [place] [address] PCP - General 10/12/07
--- OUTSIDE RECORDS SUMMARY | 2024-03-20 18:06 | XMS_ITS | Continuity of Care Document ---
Author Name Unknown Organization Z [facility] Address [address] [place] [address] Phone Care Team Providers Care Lithographer Apprentice Name Role Phone Unavailable Unavailable Unavailable Advance Directives Directive Yes / No Effective Date File Name No Information Encounters Encounter Description Practice Location Reason(s) For Visit Diagnoses Date Provider Providers Copied on Encounter Z [facility], [address], [place], [address], [place] tel:[phone] [facility] - [facility] No Information Mar-0 6-200 9 No Information Family History Family Member Type Diagnosis Age At Onset No Information Payers Payer name Insurance type Covered democrat ID Authoriza tion(s) Medicare MB [id number] [facility] Ins CI [id number] Social History Type Description Quantity Date Captured [...]
== END 2024-03-15 09:06 | disposition home or self-care (01) ==
LOC: AMB 03-20 18:04
PROVIDERS: PCP Internal Medicine; Visit Provider Family Medicine
DX: R22.31 Localized swelling, mass and lump, right upper limb (principal); R53.1 Weakness
CPT/HCPCS: A0425; A0429

== ENCOUNTER 2024-03-15 09:39 | Inpatient (IN) | payer OTHER, SELFPAY ==
[2024-03-15] VITALS (11 sets, daily range): BP systolic 99–147; BP diastolic 57–76; PULSE 48–73; RESP 12–18; TEMP 35.9–36.3; O2SAT 91–99; BMI 31.2; BMI 30.3
--- NOTE | 2024-03-15 09:53 | US_ITS ---
Patient: LIO SPARROW Facility:?[facility] Patient ID:?[id number] Site Patient ID:?[id number]. Site :?[id number] Study:?US-Extremity Right UEV RT-03/15/2024 11:15:09 AM Ordering Physician:?JESSICA MICHELLE M.D. Final Report: Indication Swelling and redness Technique Venous duplex ultrasound of the right upper extremity utilizing compression with grayscale and color and spectral Doppler. Comparison None Findings There is no deep vein thrombosis in the right brachiocephalic, internal jugular, subclavian, axillary, brachial, radial, or ulnar veins. There is no superficial vein thrombosis in the basilic or cephalic veins. There is minimal soft tissue edema in the right arm. Impression No deep vein thrombosis in the right upper extremity. Dictated by Michael Liu MD @ 03/15/2024 11:23:07 AM Signed by:?Michael Liu MD @03/15/2024 11:23:07 AM (Electronic Signature)
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
--- OUTSIDE RECORDS SUMMARY | 2024-03-15 10:08 | XMS_ITS | Clinical Summary ---
Author Name Unknown Organization [facility] Address [place], [place] [address] Care Team Providers Care Zanjero Name Role Phone Carlos Cardenas MD Primary Care Provider [phone] Allergies Active Allergy Reactions Criticality Noted Date Comments Oxycodone Hallucinations High 07/24/2020 Hydrocodone-Acetaminophen Confusion 09/15/2011 hallucinations Medications Medication Sig Dispensed Refills Start Date End Date Status tamsulosin (FLOMAX) 0.4 mg capsule Take 2 capsules. by mouth once daily after a meal. 0 09/15/2011 Active furosemide (LASIX) 20 mg tablet Take 20 mg by mouth once daily. 08/01/2020 Active acetaminophen (TYLENOL EXTRA STRGTH) 500 mg tablet Take 1-2 Tablets by mouth every 4 hours if needed for Pain. Take 1-2 tablets every 4-6 hours as needed for pain. 4000 mg max per day. Active Active Problems No known active problems [...] Comments Blood Pressure 140/62 10/07/2022 4:12 PM DOCUMENTATION LIAISON Pulse 57 10/07/2022 4:12 PM DOCUMENTATION LIAISON Temperature 36.9 ??C (98.5 ??F) 10/07/2022 4:12 PM CS T Respiratory Rate 16 10/05/2022 9:05 AM DOCUMENTATION LIAISON Oxygen Saturation 99% 10/07/2022 4:12 PM DOCUMENTATION LIAISON Inhaled Oxygen Concentration - - Weight 86.4 kg (190 lb 6.4 oz) 08/15/2020 11:11 AM CDT Height - - Body Mass Index - - Plan of Treatment Health Maintenance Due Date Last Done Comments Tdap 1952 Depression screening for age 12+ 1953 BMI (ht and wt on same day) for age 18+ 1959 Tetanus booster 1961 Zoster (shingles) series for age 50+ (1 of 2) 03/03/19 91 Medicare Wellness for age 65+ 2006 Pneumococcal series for age 65+ (1 of 1 - PCV) 006 COVID-19 vaccine series (2022-24 season) 3 Influenza for age 65+ 07/16/2024 Care Teams Zanjero Relationship Specialty Start Date End Date Carlos Cardenas MD [address] [place] [address] PCP - General 10/12/07
[2024-03-15 10:16] LABS: Basophils Percent Auto 0.1 % (0.0-3.0); Eosinophils Percent Auto 0.3 % (0.0-7.0); Hematocrit 37.3 % (37.0-53.0); Hemoglobin* 12.5 gm/dL (13.5-17.5); Immature Granulocytes Pct Auto 0.6 %; Mean Corpuscular HGB Conc 34 gm/dL (32-36); Mean Corpuscular Hemoglobin 32 pg (26-34); Mean Corpuscular Volume 96 fL (80-100); Monocytes Percent Auto 7.5 % (0.0-11.0); Neutrophils Percent Auto 74.5 % (42.0-72.0); Platelet Count* 153 K/uL (140-440); RDW Coefficient of Variation % 15.1 % (11.5-15.5); Red Blood Count 3.89 m/uL (4.30-5.90); White Blood Count* 13.91 K/uL (4.50-11.00)
[2024-03-15 10:17] LABS: Lactate* 1.2 mmol/L (0.5-1.9)
[2024-03-15 10:24] LABS: Slide Review Reflex No
[2024-03-15] MEDS: CEFAZOLIN 2 GM in 0.9 % SODIUM CHLORIDE Mini-bag 100 ML IVPB (10:26)
[2024-03-15] MEDS: ASPIRIN 81 MG TAB.CHEW 324 MG PO (10:26)
[2024-03-15] MEDS: 0.9 % SODIUM CHLORIDE 1000 ml 1,000 ML IV (10:26)
[2024-03-15 10:42] LABS: INR 1.08 (0.91-1.10); Prothrombin Time 14.6 Seconds
[2024-03-15 10:43] LABS: Partial Thromboplastin Time* 50 Seconds (23-33)
[2024-03-15 10:46] LABS: Albumin* 3.5 g/dL (3.3-5.0)
[2024-03-15 10:47] LABS: Chloride* 101 mmol/L (96-114)
[2024-03-15 10:48] LABS: Aspartate Amino Transferase* 50 U/L (12-35); Bilirubin Direct* 0.2 mg/dL (0.0-0.5); Bilirubin Total* 0.7 mg/dL (0.1-1.5); Sodium* 135 mmol/L (135-149); Total Protein* 6.8 g/dL (6.0-8.3)
[2024-03-15 10:49] LABS: Alanine Aminotransferase* 66 U/L (4-50); Alkaline Phosphatase* 142 U/L (40-150)
[2024-03-15 10:50] LABS: Creatinine* 0.6 mg/dL (0.5-1.5); Est. Creatinine Clearance* 61.43; Estimated Glomerular Filt Rate 96 ml/min
[2024-03-15 10:51] LABS: Anion Gap 7 mEq/L (7-15); Blood Urea Nitrogen* 20 mg/dL (7-30); Calcium* 9.2 mg/dL (8.4-10.6); Carbon Dioxide* 27 mmol/L (20-32); Glucose* 103 mg/dL (60-115)
[2024-03-15 11:14] LABS: C Reactive Protein* 25.4 mg/dL (0.5-1.0)
[2024-03-15] MEDS: TETANUS/DIPHTH/PERTUSSIS 0.5 ML SYRINGE IM (11:28)
[2024-03-15] MEDS: POTASSIUM BICARB 25 MEQ EFFERVESCENT TAB 50 MEQ PO (13:17)
[2024-03-15] MEDS: NYSTATIN POWDER 1 APPLIC TOPICAL ×2 (14:55→21:32)
--- NOTE | 2024-03-15 14:58 | PM.IMHP1 ---
Hospitalist- H&P: HPI History of Present Illness Date Seen: 03/15/24 Chief complaint: swelling Narrative: Roberto Jane is a 84 year old male presents to the emergency room with a 3-4 day history red and swollen right arm and weakness. 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 Over the past few years he has been wheelchair-bound for this. He has also had right-sided peripheral neuropathy of uncertain etiology which has caused his right upper and lower extremity to be relatively numb. Approximately 2 months ago his right elbow rested on a hot stove any burn himself without being aware of the pain due to his neuropathy. This caused a large ulcer over his posterior aspect of his olecranon. He has been followed by our wound clinic and this is been healing over the past 2 months to the point is now down to a 1 x 2 cm ulcer with eschar over it. This past weekend, 3-4 days ago, he started notice redness in his right arm. It was not painful as he has poor sensation. This appears to be getting worse. Along with this he is feeling weaker to the point he can no longer transfer from bed to chair and chair to toilet on his own. He lives independently with his and has been doing independent transfers on his own up until the last few days. He is not aware of a fever. He is not a aware of any other injury to his arm though he does note that he rests his right forearm on his dresser when he is accessing his dresser for clothing. The cause of his neuropathy is unclear. He does have muscular dystrophy but his neuropathy may be a separate condition. Records also indicate syringomyelia. His last evaluation with his neurologist was 2 years ago and he declined further testing for the cause of his disabilities at that time. In August of 2020 to he was admitted for a hip fracture. He had urinary retention and required a Rob catheter during his hospital stay. Subsequently the catheter was removed and he reports these unaware of urinary problems including urinary frequency dysuria. Review of Systems Narrative: Patient reports no other recent illness or injury except the right arm associated with that last few days he reports being profoundly weak and unable to transfer independent. No respiratory symptoms, chest pain, shortness of breath, nausea, vomiting, abdominal pain. Does report decreased appetite. No diarrhea. [facility] Medical History (Updated 03/15/24 @ 15:24 by Torres Smith MD) Peripheral neuropathy ?G62.9 - Polyneuropathy, unspecified (ICD-10) Situational mixed anxiety and depressive disorder ?F43.23 - Adjustment disorder with mixed anxiety and depressed mood (ICD-10) Discharge planning issues ?Z75.8 - Other problems related to medical facilities and other health care (ICD-10) First degree AV block ?I44.0 - Atrioventricular block, first degree (ICD-10) Sinus bradycardia ?R00.1 - Bradycardia, unspecified (ICD-10) UTI (urinary tract infection) ?N39.0 - Urinary tract infection, site not specified (ICD-10) Neuropathy ?G62.9 - Polyneuropathy, unspecified (ICD-10) History of renal calculi ?Z87.442 - Personal history of urinary calculi (ICD-10) History of malignant neoplasm of bladder (2010) ?Z85.51 - Personal history of malignant neoplasm of bladder (ICD-10) PVD (peripheral vascular disease) ?I73.9 - Peripheral vascular disease, unspecified (ICD-10) Rash ?R21 - Rash and other nonspecific skin eruption (ICD-10) Disability Rash ?R21 - Rash and other nonspecific skin eruption (ICD-10) Bladder cancer ?C67.9 - Malignant neoplasm of bladder, unspecified (ICD-10) BPH (benign prostatic hyperplasia) ?N40.0 - Benign prostatic hyperplasia without lower urinary tract symptoms (ICD-10) Lower extremity edema ?R60.0 - Localized edema (ICD-10) Muscular dystrophy ?G71.00 - Muscular dystrophy, unspecified (ICD-10) Fall ?W19.XXXA - Unspecified fall, initial encounter (ICD-10) Surgical History History of right hip hemiarthroplasty (08/20/22) ?Z96.641 - Presence of right artificial hip joint (ICD-10) History of lumbosacral spine surgery ?Z98.890 - Other specified postprocedural states (ICD-10) History of nasal septoplasty ?Z98.890 - Other specified postprocedural states (ICD-10) Social History Narrative: He lives with his in independent apartment on the [facility]. He does not smoke. History of daily alcohol intake but less than that more recently. 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 Code status is DNR. What is your current living situation?: I presently have a place to live Problems where you live: no known problems Problems where you live details: n/a In the past 12 months, utilities in danger of being shut off: no In past 12 months, lack of transportation kept you from medical appts, meetings, work, or getting things needed for daily living: no In the past 12 mos, have been you worried that your food would run out before you had money to buy more?: never true In the past 12 mos, the food you bought just didn't last and you didn't have money to buy more?: never true Highest level of school completed/degree received: Master's degree Smoking Status: Former smoker Do you use any of these nicotine containing products: None Second hand tobacco smoke exposure: No How often do you have a drink containing alcohol: monthly or less How many standard drinks containing alcohol do you have on a typical day: 1 or 2 How often do you have six or more drinks on one occasion: Never AUDIT-C Alcohol total score: 1 Non-prescribed substance use: denies use Caffeine: Yes (coffee in am) How often does anyone, including family, friends and others, physically hurt you: never How often does anyone, including family, friends and others, insult or talk down to you: never How often does anyone, including family, friends and others, threaten you with harm: never How often does anyone, including family, friends and others, scream or curse at you: never Little interest or pleasure in doing things: not at all Feeling down, depressed, or hopeless: not at all service: No Meds Home Medications and Allergies Home Medications Medication Instructions Recorded Confirmed Type gabapentin 100 mg capsule 100 mg PO HS Neruopathy 03/15/24 03/15/24 History (Neurontin) tamsulosin 0.4 mg capsule 0.4 mg PO DAILY 03/15/24 03/15/24 History Home Medication Comments: Gabapentin is taken p.r.n. Allergies Allergy/AdvReac Type Severity Reaction Status Date / Time hydrocodone Allergy Intermediate Hallucinati Verified 12/22/23 16:02 ng oxycodone Allergy Intermediate Hallucinati Verified 12/22/23 16:02 ng Exam Narrative: Exam Narrative: He is alert and appears in no distress. He gives his own history. Speech is fluent though slow. He answers questions appropriately corroborated by his . Eyes normal. Oropharynx normal. Neck is supple without mass or adenopathy. Respirations are clear to auscultation. No wheezing rales rhonchi. Cardiovascular: S1, S2, regular bradycardia. Abdomen: Bowel sounds active. Abdomen is soft without tenderness or mass. External genitalia notable for intertrigo with erythema in all the skin folds in the groin area. Examination of his external genitalia unremarkable. He has small nontender status these no scrotal mass or erythema. He reports pain in his right groin as well but this area is without tenderness. He does have the intertrigo present which is not tender. He tolerates range of motion is right hip without difficulty or discomfort. He does have limited range of motion there. Right upper extremity has relatively intense erythema and edema from the elbow to the fingertips. Most of the erythema is read distal to the burn wound eschar on the back of his elbow. There is no drainage or local swelling or abscess in that area. Mid extensor forearm has fairly large area, 7 or 8 cm, of oozing and weeping serous fluid with underlying ulceration to the skin. No other open wounds are identified. He has minimal sensation to soft touch over his arm and no tenderness. Left upper extremity is normal. Better sensation in his left upper extremity. Bilateral lower extremities appear normal. Again noted to have decreased sensation in left compared to the right. Some lower extremity edema. Intact pedal pulses. Const: Vital Signs, click to edit/add: Vital Signs - 24 hr 03/15/24 09:41 03/15/24 10:32 03/15/24 11:01 Temperature 96.6 F L Pulse Rate 52 L 54 L Pulse Rate [Pulse Oximeter] 55 L Respiratory Rate 18 14 12 Blood Pressure 114/57 L 113/60 Blood Pressure [Le ft Upper Arm] 99/69 Pulse Oximetry 99 97 98 Oxygen Delivery Me thod Room Air 03/15/24 11:32 03/15/24 12:02 03/15/24 13:00 Temperature Pulse Rate 50 L 48 L 49 L Pulse Rate [Pulse Oximeter] Respiratory Rate 14 16 Blood Pressure 112/63 129/66 Blood Pressure [Le ft Upper Arm] Pulse Oximetry 97 97 Oxygen Delivery Me thod 03/15/24 14:22 03/15/24 14:22 Temperature 96.9 F L Pulse Rate Pulse Rate [Pulse Oximeter] Respiratory Rate 18 18 Blood Pressure Blood Pressure [Le ft Upper Arm] Pulse Oximetry 94 94 Oxygen Delivery Me thod Room Air Room Air Documenting provider has reviewed patient's vital signs: yes Hospitalist - H&P: Result Labs Labs: Short CBC 03/15/24 Range/Units 10:00 WBC 13.91 H (4.50-11.00) K/uL Hgb 12.5 L (13.5-17.5) gm/dL Hct 37.3 (37.0-53.0) % Plt Count 153 (140-440) K/uL BMP 03/15/24 10:00 Sodium 135 Potassium 3.0 L Chloride 101 Carbon Dioxide 27 BUN 20 Creatinine 0.6 Glucose 103 Calcium 9.2 Liver Function 03/15/24 Range/Units 10:00 Total Bilirubin 0.7 (0.1-1.5) mg/dL Direct Bilirubin 0.2 (0.0-0.5) mg/dL AST 50 H (12-35) U/L ALT 66 H (4-50) U/L Alkaline Phosphatase 142 (40-150) U/L Albumin 3.5 (3.3-5.0) g/dL Assessment and Plan Assessment and plan (1) Cellulitis of arm, right: Problem comment: Unclear if this is associated with a burn on his elbow. Clearly has intense erythema and edema over his forearm. With his peripheral neuropathy and disability he is admitted to the hospital for ongoing management. Initiate vancomycin pending cultures and clinical course Status: Acute (2) Peripheral neuropathy: Problem comment: Affects right side more than left. Causing some disability and likely causing the burn on his elbow from inability to sense heat. Status: Acute (3) Facioscapulohumeral muscular dystrophy: Problem comment: He is moderately disabled but functional in his independent living with his . With this illness he has become unable to transfer on his own. Will have therapy assess functional capabilities. Hospice Massage Therapist to discuss with patient and options for acute and long-term plan for support to maximize independence Status: Acute (4) Sinus bradycardia: Problem comment: He has sinus bradycardia with a first-degree AV block. Both of these appear to be getting worse over the last couple years. Heart rate in the emergency department was in the 40s. He is asymptomatic. He reports this is a longstanding problem. Status: Acute (5) First degree AV block: Problem comment: Patient reports his a longstanding problem. Status: Acute (6) BPH (benign prostatic hyperplasia): Problem comment: Had a hip fracture in August of 2022 and required a Rob catheter after that. Will monitor with bladder scans and urine output. Status: Acute (7) Discharge planning issues: Problem comment: Currently patient is unable to be independent because he is not strong enough to transfer. Patient and are interested in further discussion about what the future entails for him. Acutely I expect him to recover from this infection and regain most of his strength and function over the next week. Status: Acute (8) Situational mixed anxiety and depressive disorder: Problem comment: Patient and are concerned about symptoms of anxiety and depression. With his neuropathic pain on his right leg and anxiety depression I have offered to start duloxetine to see if he receives benefit from this Status: Acute Plan Patient is admitted to the hospital for management of right arm cellulitis and associated disability. This is in the context of his muscular dystrophy and his peripheral neuropathy. IV antibiotics, PT and OT to evaluate. Total Time Spent Total Time Spent: Total time spent today is 90 minutes, 60 minutes in coordination of care discussing with patient and ongoing evaluation management of cellulitis and disability from muscular dystrophy and disposition
[2024-03-15 15:42] LABS: Bilirubin Urine 1+ (Negative); Blood Urine 1+ (Negative); Color Urine Amber (Yellow); Glucose Urine Negative (Negative); Ketones Urine 1+ (Negative); Leukocyte Esterase Urine Negative (Negative); Nitrite Urine Negative (Negative); Protein Urine Trace (Negative); pH Urine 5.5 (5.0-8.5)
[2024-03-15 16:01] LABS: Appearance Urine Clear (Clear)
[2024-03-15] MEDS: LACTATED RINGERS 1000 ML 1,000 ML 500 ML IV (16:05)
[2024-03-15 16:29] LABS: Bacteria Urine Few; WBC Urine 0-2 (0-5)
[2024-03-15 16:30] LABS: Mucus Urine Moderate
--- NOTE | 2024-03-15 18:28 | PC.NURSE ---
[End of Shift Note]: Patient arrived to unit this afternoon from Emergency Department where he presented with R) upper arm pain, swelling, and weeping drainage. Patient admitted for treatment of cellulitis. Patient had a burn in R) elbow a couple of months ago that is closed and healing. Mepilex applied over closed area to avoid pressure that may occur while patient is lying in bed. Patient has other closed wounds to bilateral shins that are open to air. R) upper extremity weeping and edematous. Dressing changed performed per MD orders (area cleansed with Vashe, non-absorbent gauze applied, then ABD, then wrapped in Kerlix and covered with tubigrip). Patient's groin area very red. Shantelle-care completed and Nystatin powder applied per order. Patient receiving IV Vancomycin. Patient unable to urinate all day. MD gave orders to perform bladder scan and straight cath for UA and urine culture. Bladder scan showed urine retention of >300 mL. Straight cath urine amount = 500 mL. Urine clear and dark carlos. Patient received bolus of 1000 mL LR infused over 2 hours today. Patient is wheelchair-bound at baseline (hx of muscular dystrophy) at home and unable to ambulate during admission. Patient repositioned frequently to prevent pressure ulcers. Patient A&OX3 and has no neuro deficits. Vital signs stable; patient is bradycardic at baseline. Cardiac telemetry monitoring in place. Will continue to implement ongoing plan of care.
[2024-03-15] MEDS: DULOXETINE 30 MG CAPSULE DR PO (21:32)
[2024-03-15] MEDS: ENOXAPARIN 40 MG/0.4 ML INJ SUBCUT (21:32)
[2024-03-15] MEDS: SODIUM CHLORIDE 0.9 % (FLUSH) 10 ML SYRINGE 5 ML IVF (21:33)
[2024-03-15] MEDS: ACETAMINOPHEN 500 MG TABLET PO (21:41)
[2024-03-16 01:46] VITALS: BP 116/57; PULSE 67; RESP 18; TEMP 36.2; O2SAT 91
--- NOTE | 2024-03-16 06:26 | PC.NURSE ---
Shift note: Pt has been in bed throughout the shift. Turn and reposition Q2H. Alert and oriented but appeared weak. Dressing to the right arm changed at 0400. Bladder scan done 0500 was 441ml and straight cath done was 450ml. Pt had difficulty urinating. Vitally stable.
[2024-03-16 06:33] LABS: Basophils Absolute Auto 0.01 K/uL (0.00-0.30); Basophils Percent Auto 0.1 % (0.0-3.0); Eosinophils Absolute Auto 0.03 K/uL (0.00-0.50); Eosinophils Percent Auto 0.3 % (0.0-7.0); Hematocrit 36.5 % (37.0-53.0); Hemoglobin* 12.3 gm/dL (13.5-17.5); Immature Granulocytes Abs Auto 0.07 K/uL (0.00-0.30); Immature Granulocytes Pct Auto 0.7 %; Lymphocytes Percent Auto 19.8 % (20-44); Mean Corpuscular HGB Conc 34 gm/dL (32-36); Mean Corpuscular Hemoglobin 32 pg (26-34); Mean Corpuscular Volume 96 fL (80-100); Monocytes Percent Auto 7.8 % (0.0-11.0); Neutrophils Absolute Auto 7.44 K/uL (1.7-7.0); Neutrophils Percent Auto 71.3 % (42.0-72.0); Platelet Count* 164 K/uL (140-440); RDW Coefficient of Variation % 15.2 % (11.5-15.5); Red Blood Count 3.81 m/uL (4.30-5.90); White Blood Count* 10.42 K/uL (4.50-11.00)
[2024-03-16 06:36] LABS: Slide Review Reflex No
[2024-03-16 06:54] LABS: Chloride* 105 mmol/L (96-114); Potassium* 3.4 mmol/L (3.6-5.1); Sodium* 138 mmol/L (135-149)
[2024-03-16 06:57] LABS: Anion Gap 7 mEq/L (7-15); Blood Urea Nitrogen* 15 mg/dL (7-30); Calcium* 8.9 mg/dL (8.4-10.6); Carbon Dioxide* 26 mmol/L (20-32); Creatinine* 0.6 mg/dL (0.5-1.5); Est. Creatinine Clearance* 61.43; Estimated Glomerular Filt Rate 96 ml/min; Glucose* 104 mg/dL (60-115); Magnesium* 2.3 mg/dL (1.5-2.6)
[2024-03-16 07:00] VITALS: BP 111/51; PULSE 69; PULSE 70; RESP 16; TEMP 36.3; O2SAT 95
[2024-03-16] MEDS: TAMSULOSIN HCL 0.4 MG CAPSULE PO (08:33)
[2024-03-16] MEDS: NYSTATIN POWDER 1 APPLIC TOPICAL ×2 (08:33→21:31)
[2024-03-16] MEDS: FUROSEMIDE 40 MG TABLET 80 MG PO (08:33)
[2024-03-16] MEDS: POTASSIUM CHLORIDE 10 MEQ CAPSULE ER 20 MEQ PO ×2 (08:33→17:52)
[2024-03-16] MEDS: SODIUM CHLORIDE 0.9 % (FLUSH) 10 ML SYRINGE 5 ML IVF ×2 (08:34→21:30)
[2024-03-16] MEDS: ACETAMINOPHEN 500 MG TABLET PO ×3 (09:28→22:04)
[2024-03-16 11:00] VITALS: BP 123/63; PULSE 67; RESP 18; TEMP 36.3; O2SAT 97
--- NOTE | 2024-03-16 11:01 | P.IMPN_ITS ---
Progress Note: A&P Assessment and plan (1) Cellulitis of arm, right: Problem details: Unclear if this is associated with a burn on his elbow. Clearly has intense erythema and edema over his forearm. With his peripheral neuropathy and disability he is admitted to the hospital for ongoing management. Initiate vancomycin pending cultures and clinical course. Clinically improving on day 1. He had MSSA cultured 2 months ago from his wound. Previously had received treatment with Keflex. Status: Acute (2) Peripheral neuropathy: Problem details: Affects right side more than left. Minimal sensation of pain on the right side of his body. Causing some disability and likely causing the burn on his elbow from inability to sense heat. Status: Acute (3) Facioscapulohumeral muscular dystrophy: Problem details: He is moderately disabled but functional in his independent living with his prior to the last few days of illness. With this illness he has become unable to transfer on his own. Will have therapy assess functional capabilities. Building Principal to discuss with patient and options for acute and long-term plan for support to maximize independence. Status: Acute (4) Sinus bradycardia: Problem details: He has sinus bradycardia with a first-degree AV block. Both of these appear to be getting worse over the last couple years. Heart rate in the emergency department was in the 40s. He is asymptomatic. He reports this is a longstanding problem. Status: Acute (5) First degree AV block: Problem details: Patient reports his a longstanding problem. Status: Acute (6) BPH (benign prostatic hyperplasia): Problem details: Had a hip fracture in August of 2022 and required a Rob catheter after that. Will monitor with bladder scans and urine output. Bladder scan this morning showed 441 mL residual. Hold off on catheter for now. Monitor for complications of urinary retention. Status: Acute (7) Discharge planning issues: Problem details: Currently patient is unable to be independent because he is not strong enough to transfer. Patient and are interested in further discussion about what the future entails for him. Acutely I expect him to recover from this infection and regain most of his strength and function over the next week. Status: Acute (8) Situational mixed anxiety and depressive disorder: Problem details: Patient and are concerned about symptoms of anxiety and depression. With his neuropathic pain on his right leg and anxiety depression I have offered to start duloxetine to see if he receives benefit from this Status: Acute (9) Decreased urine output: Problem details: He yesterday had decreased urine output and required 2 L of IV fluids for him to start making urine. 450 mL of urine output overnight. Likely due to his acute illness. Status: Acute Plan Patient is been to the hospital for right arm cellulitis and profound weakness and disability associated with this. Patient does not since pain in his right arm and is having trouble assessing symptoms. Pending cultures continues to need IV antibiotics. Time Spent With Patient Total time spent: Total time spent today is 45 minutes, 35 minutes in coordination of care discussing with patient other providers ongoing evaluation management of cellulitis and disability and disposition. Subjective Date Seen: 03/16/24 Interval history: Roberto Jane is a 84 year old male presents to the emergency room with a 3-4 day history red and swollen right arm and weakness. 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 Over the past few years he has been wheelchair-bound for this. He has also had right-sided peripheral neuropathy of uncertain etiology which has caused his right upper and lower extremity to be relatively numb. Approximately 2 months ago his right elbow rested on a hot stove any burn himself without being aware of the pain due to his neuropathy. This caused a large ulcer over his posterior aspect of his olecranon. He has been followed by our wound clinic and this has been healing over the past 2 months to the point is now down to a 1 x 2 cm ulcer with eschar over it. This past weekend, 3-4 days ago, he started notice redness in his right arm. It was not painful as he has poor sensation. This appears to be getting worse. Along with this he is feeling weaker to the point he can no longer transfer from bed to chair and chair to toilet on his own. He lives independently with his and has been doing independent transfers on his own up until the last few days. He is not aware of a fever. He is not a aware of any other injury to his arm though he does note that he rests his right forearm on his dresser or other furniture for transfers. The cause of his neuropathy is unclear. He does have muscular dystrophy but his neuropathy may be a separate condition. 3.5 years ago he had a C1 and C2 fracture. 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 His last evaluation with his [place] neurologist was 2 years ago and he declined further testing for the cause of his disabilities at that time. In August of 2020 to he was admitted for a hip fracture. He had urinary retention and required a Rob catheter during his hospital stay. Subsequently the catheter was removed and he reports these unaware of urinary problems including urinary frequency dysuria. March 16: Patient reports minimal improvement in his weakness. He was still unable to stand for transfer. He did tolerate the EZ stand. He is not aware of any fever. Appetite is improved. Exam Narrative: Exam Narrative: He is alert and appears in no distress. He is oriented to his circumstances. Respirations are clear to auscultation. Cardiovascular: S1, S2, regular rate and rhythm. Abdomen is soft without tenderness or mass. Right upper extremity is examined. He has dressing over his burn ulcer over the posterior olecranon and distal triceps area. This area appears to be relatively free of infection/cellulitis findings. The forearm continues to have erythema and edema but less intense than yesterday. The lateral/extensor forearm continues have a large area of blistering and oozing of serous fluid. Erythema of the hand is better but the edema is persistent. Const: Vital Signs, click to edit/add: Vital Signs - 24 hr 03/15/24 11:32 03/15/24 12:02 03/15/24 13:00 Temperature Pulse Rate 50 L 48 L 49 L Pulse Rate [Bilate ral Radial] Respiratory Rate 14 16 Blood Pressure 112/63 129/66 Blood Pressure [Le ft Arm] Pulse Oximetry 97 97 [facility]/24 14:22 03/15/24 14:22 03/15/24 15:00 Temperature 96.9 F L 96.9 F L Pulse Rate Pulse Rate [Bilate ral Radial] 50 L 51 L Respiratory Rate 18 18 18 Blood Pressure Blood Pressure [Le ft Arm] 118/57 L 147/76 H Pulse Oximetry 94 94 98 Oxygen Delivery [facility] Room Air Room Air Room Air 03/15/24 16:28 03/15/24 19:00 03/15/24 23:00 Temperature 97 F L Pulse Rate 50 L Pulse Rate [Bilate ral Radial] 73 Respiratory Rate 18 18 Blood Pressure Blood Pressure [Le ft Arm] 139/74 Pulse Oximetry 92 Oxygen Delivery Me thod Room Air 03/15/24 23:00 03/15/24 23:00 03/16/24 01:46 Temperature 97.3 F L 97.2 F L Pulse Rate 71 Pulse Rate [Bilate ral Radial] 71 67 Respiratory Rate 18 18 Blood Pressure Blood Pressure [Le ft Arm] 124/73 116/57 L Pulse Oximetry 91 91 Oxygen Delivery Me thod Room Air Room Air 03/16/24 07:00 03/16/24 07:00 03/16/24 07:00 Temperature 97.4 F L Pulse Rate 69 Pulse Rate [Bilate ral Radial] 70 70 Respiratory Rate 16 16 Blood Pressure Blood Pressure [Le ft Arm] 111/51 L Pulse Oximetry 95 Oxygen Delivery Me thod Room Air Documenting provider has reviewed patient's vital signs: yes Labs Labs: Laboratory Results - last 24 hr 03/15/24 03/15/24 03/16/24 10:00 15:36 06:03 WBC 10.42 RBC 3.81 L Hgb 12.3 L Hct 36.5 L MCV 96 MCH 32 MCHC 34 RDW Coeff of Ruddy 15.2 Plt Count 164 Neut % (Auto) 71.3 Lymph % (Auto) 19.8 L Randall % (Auto) 7.8 Eos % (Auto) 0.3 Baso % (Auto) 0.1 Neut # (Auto) 7.44 H Lymph # (Auto) 2.10 Randall # (Auto) 0.80 Eos # (Auto) 0.03 Baso # (Auto) 0.01 Abs Immat Gran (auto) 0.07 Imm/Tot Granulo (auto) 0.7 Sodium 135 138 Potassium 3.0 L 3.4 L Chloride 101 105 Carbon Dioxide 27 26 Anion Gap 7 7 BUN 20 15 Creatinine 0.6 0.6 Estimated Creat Clear 61.43 61.43 Estimated GFR 96 96 Glucose 103 104 Calcium 9.2 8.9 Magnesium 2.3 C-Reactive Protein 25.4 H Urine Color Jennifer A Urine Appearance Clear Urine pH 5.5 Ur Specific [place] 1.020 Urine Protein Trace A Urine Glucose (UA) Negative Urine Ketones 1+ A Urine Blood 1+ A Urine Nitrite Negative Urine Bilirubin 1+ A Urine Urobilinogen 1.0 Ur Leukocyte Esterase Negative Urine RBC 2-5 A Urine WBC 0-2 Ur Squamous Epith Cells None Urine Bacteria Few A Urine Mucus Moderate A
--- NOTE | 2024-03-16 14:50 | PC.SOCIAL ---
Discharge planning: healthcare social worker attempted to meet with pt twice this afternoon. The first time pt was in the bathroom and the second time pt was behind the curtain in his room and said that meeting then was not a good time for him and he asked this worker to come back later. Social work to follow-up as needed.
[2024-03-16 15:00] VITALS: BP 130/65; PULSE 67; PULSE 70; RESP 18; TEMP 36.6; O2SAT 95
--- NOTE | 2024-03-16 18:34 | PC.NURSE ---
End of shift [id number]: Pt is A&O x4, afebrile and VSS today. He transfers to the chair/bathroom with the EZ stand Ax2. Pt has been unable to feed himself d/t bilateral hand weakness so staff have been assisting him with meals. PIV in left AC SL and C/D/I. Pt c/o back pain & bilat leg pain this morning; PRN Tylenol given last @ 1755 with adequate relief. Right elbow dressing changed this morning- cleansed with Vashe & Mepilex applied. Right forearm dressing changed- cleansed with Vashe, applied Telfa, secured with Kerlix roll & KOURTNEY wrap for compression. RUE still edematous but improving. K+ 3.4 this morning; started on 20 mEq PO BID. TELE reads sinus arrythmia with 1st degree block which is longstanding per pt and . Pt has been unable to void; bladder scan done @1500 for 641 mL. Straight cathed for [address] a Rob catheter per Dr. Lunsford?s recommendations but patient declined and would like to try to void once more. ?
[2024-03-16 19:30] VITALS: BP 136/68; PULSE 72; RESP 18; TEMP 36.7; O2SAT 96
[2024-03-16] MEDS: DULOXETINE 30 MG CAPSULE DR PO (21:30)
[2024-03-16] MEDS: ENOXAPARIN 40 MG/0.4 ML INJ SUBCUT (21:30)
--- NOTE | 2024-03-16 22:40 | PC.NURSE ---
Shift note 19-23: Pt sitting up in BR trying to have a BM for over an hour, only sm passed, prune juice given, urine noted in toilet. R hand up to elbow dressed but noted swelling, redness and warmth, elevated on 2 pillows.
[2024-03-16 23:40] VITALS: PULSE 67
[2024-03-17] VITALS (8 sets, daily range): BP systolic 117–139; BP diastolic 51–72; PULSE 60–77; RESP 16–20; TEMP 36.6–36.9; O2SAT 93–98; BMI 31.5
[2024-03-17] MEDS: SODIUM CHLORIDE 0.9 % (FLUSH) 10 ML SYRINGE 5 ML IVF ×3 (01:17→22:30)
--- NOTE | 2024-03-17 06:20 | PC.NURSE ---
END OF SHIFT NOTE: PT PLEASANT AND COOPERATIVE. A&O, WITH OCCASIONAL CONFUSION. PT DENIES CP, SOB, N/V. HX MUSCULAR DYSTROPHY, W/C BOUND. D/T INCREASED WEAKNESS PT UNABLE TO SELF TRANSFER REQUIRING EZ-STAND WITH ASSIST OF 2. VSS ON RA; AFEBRILE. CALL LIGHT WITHIN PT?S REACH. TELE- NSR W/ 1ST DEGREE HB.
[2024-03-17 06:36] LABS: Basophils Absolute Auto 0.01 K/uL (0.00-0.30); Basophils Percent Auto 0.1 % (0.0-3.0); Eosinophils Absolute Auto 0.03 K/uL (0.00-0.50); Eosinophils Percent Auto 0.3 % (0.0-7.0); Hematocrit 36.6 % (37.0-53.0); Hemoglobin* 12.2 gm/dL (13.5-17.5); Immature Granulocytes Abs Auto 0.11 K/uL (0.00-0.30); Immature Granulocytes Pct Auto 1.1 %; Lymphocytes Absolute Auto 2.49 K/uL (0.90-2.90); Lymphocytes Percent Auto 24.1 % (20-44); Mean Corpuscular HGB Conc 33 gm/dL (32-36); Mean Corpuscular Hemoglobin 32 pg (26-34); Mean Corpuscular Volume 96 fL (80-100); Monocytes Percent Auto 9.3 % (0.0-11.0); Neutrophils Absolute Auto 6.75 K/uL (1.7-7.0); Neutrophils Percent Auto 65.1 % (42.0-72.0); Platelet Count* 184 K/uL (140-440); RDW Coefficient of Variation % 15.5 % (11.5-15.5); White Blood Count* 10.35 K/uL (4.50-11.00)
[2024-03-17 06:43] LABS: Slide Review Reflex No
[2024-03-17 06:59] LABS: Chloride* 106 mmol/L (96-114); Sodium* 138 mmol/L (135-149)
[2024-03-17 07:00] LABS: Potassium* 3.5 mmol/L (3.6-5.1)
[2024-03-17 07:02] LABS: Anion Gap 4 mEq/L (7-15); Aspartate Amino Transferase* 69 U/L (12-35); Bilirubin Direct* 0.1 mg/dL (0.0-0.5); Bilirubin Total* 0.6 mg/dL (0.1-1.5); Carbon Dioxide* 28 mmol/L (20-32); Creatinine* 0.7 mg/dL (0.5-1.5); Est. Creatinine Clearance* 61.43; Estimated Glomerular Filt Rate 91 ml/min; Total Protein* 6.1 g/dL (6.0-8.3)
[2024-03-17 07:03] LABS: Alanine Aminotransferase* 56 U/L (4-50); Alkaline Phosphatase* 151 U/L (40-150); Blood Urea Nitrogen* 14 mg/dL (7-30); Calcium* 8.8 mg/dL (8.4-10.6); Glucose* 98 mg/dL (60-115)
[2024-03-17 07:20] LABS: C Reactive Protein* 22.5 mg/dL (0.5-1.0)
[2024-03-17] MEDS: FUROSEMIDE 40 MG TABLET 80 MG PO (08:07)
[2024-03-17] MEDS: POTASSIUM CHLORIDE 10 MEQ CAPSULE ER 20 MEQ PO ×2 (08:07→18:07)
[2024-03-17] MEDS: TAMSULOSIN HCL 0.4 MG CAPSULE PO (08:07)
[2024-03-17] MEDS: NYSTATIN POWDER 1 APPLIC TOPICAL ×2 (08:08→22:29)
--- NOTE | 2024-03-17 10:22 | P.IMPN_ITS ---
Progress Note: A&P Assessment and plan (1) Cellulitis of arm, right: Problem details: Unclear if this is associated with a burn on his elbow. Clearly has intense erythema and edema over his forearm. With his peripheral neuropathy and disability he is admitted to the hospital for ongoing management. Initiate vancomycin pending cultures and clinical course. Clinically appears unchanged on day 2. Culture growing MSSA. Switch from vancomycin to Ancef. Status: Acute (2) Peripheral neuropathy: Problem details: Affects right side more than left. Minimal sensation of pain on the right side of his body. Causing some disability and likely causing the burn on his elbow from inability to sense heat. Status: Acute (3) Facioscapulohumeral muscular dystrophy: Problem details: He is moderately disabled but functional in his independent living with his prior to the last few days of illness. With this illness he has become unable to transfer on his own. Will have therapy assess functional capabilities. Balancing Machine Set Up Worker to discuss with patient and options for acute and long-term plan for support to maximize independence. Status: Acute (4) Sinus bradycardia: Problem details: He has sinus bradycardia with a first-degree AV block. Both of these appear to be getting worse over the last couple years. Heart rate in the emergency department was in the 40s. He is asymptomatic. He reports this is a longstanding problem. Status: Acute (5) First degree AV block: Problem details: Patient reports his a longstanding problem. Status: Acute (6) Discharge planning issues: Problem details: Currently patient is unable to be independent because he is not strong enough to transfer. Patient and are interested in further discussion about what the future entails for him. Acutely I expect him to recover from this infection and regain most of his strength and function over the next week. Status: Acute (7) Situational mixed anxiety and depressive disorder: Problem details: Patient and are concerned about symptoms of anxiety and depression. With his neuropathic pain on his right leg and anxiety depression I have offered to start duloxetine to see if he receives benefit from this Status: Acute (8) Decreased urine output: Problem details: He yesterday had decreased urine output and required 2 L of IV fluids for him to start making urine. 450 mL of urine output overnight. Likely due to his acute illness. Status: Acute (9) Urinary retention: Problem details: Patient is having recurrent urinary intention this is happened with previous hospitalizations for spine surgery and hip fracture surgery. Initially this was suspected to be due to BPH. Given other neurologic problems I suspect neurogenic bladder is a significant contributor to his current problems. Will place Rob catheter for now. Status: Acute (10) Constipation: Problem details: Reporting symptoms of constipation. Initiate laxatives to help bowel function and possibly help bladder function. Status: Acute Plan Continue in hospital for treatment of right arm cellulitis pending clinical improvement. Continue to work with therapy to improve functional status. Addressed urinary retention with Rob. Address constipation with laxatives. Likely will need fpc facility for rehab. Time Spent With Patient Total time spent: 40 minutes Subjective Date Seen: 03/17/24 Interval history: Roberto Jane is a 84 year old male presents to the emergency room with a 3-4 day history red and swollen right arm and weakness. 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 Over the past few years he has been wheelchair-bound for this. He has also had right-sided peripheral neuropathy of uncertain etiology which has caused his right upper and lower extremity to be relatively numb. Approximately 2 months ago his right elbow rested on a hot stove any burn himself without being aware of the pain due to his neuropathy. This caused a large ulcer over his posterior aspect of his olecranon. He has been followed by our wound clinic and this has been healing over the past 2 months to the point is now down to a 1 x 2 cm ulcer with eschar over it. This past weekend, 3-4 days ago, he started notice redness in his right arm. It was not painful as he has poor sensation. This appears to be getting worse. Along with this he is feeling weaker to the point he can no longer transfer from bed to chair and chair to toilet on his own. He lives independently with his and has been doing independent transfers on his own up until the last few days. He is not aware of a fever. He is not a aware of any other injury to his arm though he does note that he rests his right forearm on his dresser or other furniture for transfers. The cause of his neuropathy is unclear. He does have muscular dystrophy but his neuropathy may be a separate condition. 3.5 years ago he had a C1 and C2 fracture. 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 His last evaluation with his [place] neurologist was 2 years ago and he declined further testing for the cause of his disabilities at that time. In August of 2020 to he was admitted for a hip fracture. He had urinary retention and required a Rob catheter during his hospital stay. Subsequently the catheter was removed and he reports these unaware of urinary problems including urinary frequency dysuria. March 16: Patient reports minimal improvement in his weakness. He was still unable to stand for transfer. He did tolerate the EZ stand. He is not aware of any fever. Appetite is improved. March 17: Patient continues to be concerned about weakness. Needing a lot of assistance with ADLs. His urinary retention is worse. He has been straight cath twice. Now his postvoid residual is 600 mL. He feels a bit constipated. No BM for the last couple days. No fever. Exam Narrative: Exam Narrative: He is alert and oriented to circumstances. Eyes normal. Oropharynx normal. Respirations are clear to auscultation. Cardiovascular: S1, S2, regular rate and rhythm. Abdomen: Bowel sounds active. Abdomen is soft without tenderness or mass. Right upper extremity with edema and erythema that is about the same as yesterday. Yesterday was improved over admission. Ulceration over his extensor forearm is still oozing and crusting and about the same as yesterday. Const: Vital Signs, click to edit/add: Vital Signs - 24 hr 03/16/24 11:00 03/16/24 15:00 03/16/24 15:00 Temperature 97.3 F L Pulse Rate 67 Pulse Rate [Bilate ral Radial] 67 70 Respiratory Rate 18 18 Blood Pressure [Le ft Arm] 123/63 Pulse Oximetry 97 Oxygen Delivery Ia thod Room Air 03/16/24 15:00 03/16/24 19:30 03/16/24 23:40 Temperature 98 F 98.1 F Pulse Rate 67 Pulse Rate [Bilate ral Radial] 70 72 Respiratory Rate 18 18 Blood Pressure [Le ft Arm] 130/65 136/68 Pulse Oximetry 95 96 Oxygen Delivery Ia thod Room Air Room Air 03/17/24 00:30 03/17/24 00:30 03/17/24 03:30 Temperature 97.8 F 97.8 F Pulse Rate Pulse Rate [Bilate ral Radial] 66 66 77 Respiratory Rate 20 20 20 Blood Pressure [Le ft Arm] 118/51 L 125/72 Pulse Oximetry 93 96 Oxygen Delivery Me thod Room Air Room Air 03/17/24 08:00 03/17/24 08:00 03/17/24 08:05 Temperature 98.4 F Pulse Rate 63 Pulse Rate [Bilate ral Radial] 63 66 Respiratory Rate 18 18 Blood Pressure [Le ft Arm] 126/58 L Pulse Oximetry 94 Oxygen Delivery Me thod Room Air Documenting provider has reviewed patient's vital signs: yes Labs Labs: Laboratory Results - last 24 hr 03/17/24 06:10 WBC 10.35 RBC 3.80 L Hgb 12.2 L Hct 36.6 L MCV 96 MCH 32 MCHC 33 RDW Coeff of Ruddy 15.5 Plt Count 184 Neut % (Auto) 65.1 Lymph % (Auto) 24.1 Esmeralda % (Auto) 9.3 Eos % (Auto) 0.3 Baso % (Auto) 0.1 Neut # (Auto) 6.75 Lymph # (Auto) 2.49 Esmeralda # (Auto) 1.00 H Eos # (Auto) 0.03 Baso # (Auto) 0.01 Abs Immat Gran (auto) 0.11 Imm/Tot Granulo (auto) 1.1 Sodium 138 Potassium 3.5 L Chloride 106 Carbon Dioxide 28 Anion Gap 4 L BUN 14 Creatinine 0.7 Estimated Creat Clear 61.43 Estimated GFR 91 Glucose 98 Calcium 8.8 Total Bilirubin 0.6 Direct Bilirubin 0.1 AST 69 H ALT 56 H Alkaline Phosphatase 151 H C-Reactive Protein 22.5 H Total Protein 6.1 Albumin 3.0 L
[2024-03-17] MEDS: CEFAZOLIN 1 GM in 0.9 % SODIUM CHLORIDE Mini-bag 100 ML IVPB ×2 (10:58→18:07)
[2024-03-17] MEDS: SENNOSIDES 1 TAB TABLET 2 TAB PO (10:59)
--- NOTE | 2024-03-17 15:52 | PC.SOCIAL ---
Discharge planning: Pt will admit to [facility] on Wednesday per pt's choice. Camille from [facility] came to the hospital to meet with the pt today and completed the needed assessment. All the needed paperwork was sent to Camille. Pt is pleased with this plan. Social work to follow-up as needed.
--- NOTE | 2024-03-17 19:06 | PC.NURSE ---
Nursing Care Hours:[id number] Pt this shift calm and cooperative, alert and oriented. No c/o pain. Rob 16fr placed today d/t urinary retention after bladder scan showing 599ml. Rob patent this shift. Pt tolerated procedure well, sterile technique maintained. Lq BM today after PO laxative. Wound dressing completed, arm resting on two pillows above level of heart. R hand edema at 3-4+ and redness up past elbow. IV ABX infused. Tele showing afib with NVR. Up to chair with EZ stand lift.
[2024-03-17] MEDS: DULOXETINE 30 MG CAPSULE DR PO (22:27)
[2024-03-17] MEDS: ENOXAPARIN 40 MG/0.4 ML INJ SUBCUT (22:28)
[2024-03-17] MEDS: ACETAMINOPHEN 500 MG TABLET PO (23:09)
[2024-03-18] VITALS (7 sets, daily range): BP systolic 107–126; BP diastolic 50–69; PULSE 61–73; RESP 16–20; TEMP 36.1–37; O2SAT 91–95
[2024-03-18] MEDS: CEFAZOLIN 1 GM in 0.9 % SODIUM CHLORIDE Mini-bag 100 ML IVPB ×3 (02:57→18:51)
[2024-03-18] MEDS: 0.9 % SODIUM CHLORIDE 250 ml IV ×2 (03:07→18:51)
[2024-03-18 06:37] LABS: Basophils Absolute Auto 0.02 K/uL (0.00-0.30); Basophils Percent Auto 0.2 % (0.0-3.0); Eosinophils Absolute Auto 0.03 K/uL (0.00-0.50); Eosinophils Percent Auto 0.3 % (0.0-7.0); Hematocrit 35.3 % (37.0-53.0); Hemoglobin* 11.7 gm/dL (13.5-17.5); Immature Granulocytes Abs Auto 0.31 K/uL (0.00-0.30); Immature Granulocytes Pct Auto 2.8 %; Lymphocytes Percent Auto 22.7 % (20-44); Mean Corpuscular HGB Conc 33 gm/dL (32-36); Mean Corpuscular Hemoglobin 32 pg (26-34); Mean Corpuscular Volume 96 fL (80-100); Neutrophils Absolute Auto 7.03 K/uL (1.7-7.0); Platelet Count* 194 K/uL (140-440); RDW Coefficient of Variation % 15.7 % (11.5-15.5); Red Blood Count 3.67 m/uL (4.30-5.90); White Blood Count* 10.99 K/uL (4.50-11.00)
[2024-03-18 06:56] LABS: Chloride* 106 mmol/L (96-114); Potassium* 3.5 mmol/L (3.6-5.1); Sodium* 139 mmol/L (135-149)
[2024-03-18 06:59] LABS: Anion Gap 5 mEq/L (7-15); Carbon Dioxide* 28 mmol/L (20-32); Creatinine* 0.7 mg/dL (0.5-1.5); Est. Creatinine Clearance* 61.43; Estimated Glomerular Filt Rate 91 ml/min
[2024-03-18 07:00] LABS: Blood Urea Nitrogen* 16 mg/dL (7-30); Calcium* 8.7 mg/dL (8.4-10.6); Glucose* 95 mg/dL (60-115)
[2024-03-18 07:20] LABS: Slide Review Reflex No
--- NOTE | 2024-03-18 07:47 | PC.NURSE ---
Patient pleasant, alert and oriented. Transferred to toilet with stand-lift and assist of two. PRN Tylenol given at HS for c/o pain rated 4-6/10 in back and legs. Tylenol and repositioning effective.?Dressing changed at 0400 as was not intact and right arm blister draining. Moderate amount of tanish-brown drainage noted. Area cleansed and new dressing applied per MD orders. Patient tolerated dressing change well. MD updated.?
[2024-03-18] MEDS: POTASSIUM CHLORIDE 10 MEQ CAPSULE ER 20 MEQ PO ×2 (09:18→18:51)
[2024-03-18] MEDS: NYSTATIN POWDER 1 APPLIC TOPICAL ×2 (09:19→21:18)
[2024-03-18] MEDS: SODIUM CHLORIDE 0.9 % (FLUSH) 10 ML SYRINGE 5 ML IVF (09:19)
[2024-03-18] MEDS: FUROSEMIDE 40 MG TABLET 80 MG PO (09:19)
[2024-03-18] MEDS: TAMSULOSIN HCL 0.4 MG CAPSULE 0.8 MG PO (09:19)
[2024-03-18] MEDS: SENNOSIDES 1 TAB TABLET PO (09:19)
--- NOTE | 2024-03-18 12:34 | PM.IMPN1 ---
Progress Note: A&P Assessment and plan (1) Cellulitis of arm, right: Problem details: Unclear if this is associated with a burn on his elbow. Clearly has intense erythema and edema over his forearm. With his peripheral neuropathy and disability he is admitted to the hospital for ongoing management. Initiate vancomycin pending cultures and clinical course. Clinically appears unchanged on day 2. Culture growing MSSA. Switch from vancomycin to Ancef. 03/18: Purulent drainage reported overnight, remains afebrile, no leukocytosis, BC NGTD Continue Ancef Daily wound cares or more often as needed Status: Acute (2) Peripheral neuropathy: Problem details: Affects right side more than left. Minimal sensation of pain on the right side of his body. Causing some disability and likely causing the burn on his elbow from inability to sense heat. Status: Acute (3) Facioscapulohumeral muscular dystrophy: Problem details: He is moderately disabled but functional in his independent living with his prior to the last few days of illness. With this illness he has become unable to transfer on his own. Will have therapy assess functional capabilities. Wastewater Technician to discuss with patient and options for acute and long-term plan for support to maximize independence. Status: Acute (4) Sinus bradycardia: Problem details: He has sinus bradycardia with a first-degree AV block. Both of these appear to be getting worse over the last couple years. Heart rate in the emergency department was in the 40s. He is asymptomatic. He reports this is a longstanding problem. Status: Acute (5) First degree AV block: Problem details: Patient reports his a longstanding problem. Status: Acute (6) Discharge planning issues: Problem details: Currently patient is unable to be independent because he is not strong enough to transfer. Patient and are interested in further discussion about what the future entails for him. Acutely I expect him to recover from this infection and regain most of his strength and function over the next week. Status: Acute (7) Situational mixed anxiety and depressive disorder: Problem details: Patient and are concerned about symptoms of anxiety and depression. With his neuropathic pain on his right leg and anxiety depression I have offered to start duloxetine to see if he receives benefit from this Status: Acute (8) Decreased urine output: Problem details: He yesterday had decreased urine output and required 2 L of IV fluids for him to start making urine. 450 mL of urine output overnight. Likely due to his acute illness. UC negative Rob catheter in place Status: Acute (9) Urinary retention: Problem details: Patient is having recurrent urinary intention this is happened with previous hospitalizations for spine surgery and hip fracture surgery. Initially this was suspected to be due to BPH. Given other neurologic problems I suspect neurogenic bladder is a significant contributor to his current problems. Will place Rob catheter for now. Status: Acute (10) Constipation: Problem details: Reporting symptoms of constipation. Initiate laxatives to help bowel function and possibly help bladder function. Status: Acute Plan Continue in hospital for treatment of right arm cellulitis pending clinical improvement. Continue to work with therapy to improve functional status. Addressed urinary retention with Rob. Address constipation with laxatives. Likely will need custodial facility for rehab. Time Spent With Patient Total time spent: 40 minutes Subjective Date Seen: 03/18/24 Interval history: Patient is sleeping during rounds this morning, easily awakens. Reports sleeping okay. Feeling a little better. Has remained afebrile. Tolerating orals without nausea vomiting. Overnight, nursing staff reports pus-like drainage from right forearm, middle of cellulitic area. Currently, patient reports swelling of hand has improved and he feels his range of motion is better. Also tells me that sensation in this arm is improving. No new or worsening significant pain. Exam Narrative: Exam Narrative: PHYSICAL EXAM General: Pleasant, conversant, NAD Cardiovascular: RRR, S1S2. Pulmonary: CTA bilaterally without rhonchi, rales, expiratory wheezes. No dyspnea Neurological: Alert, answering questions appropriately, cranial nerves intact, no focal findings Extremities: No gross joint deformity or swelling. AROMI. Neurovascularly intact Skin: RUE with erythema and edema into hand (better than yesterday per patient), ulceration currently with serous drainage, unable to express purulent matter at this time, slight desquamation, full AROM of hand, nontender Const: Vital Signs, click to edit/add: Vital Signs - 24 hr 03/16/24 19:30 03/16/24 23:40 03/17/24 00:30 Temperature 98.1 F Pulse Rate 67 Pulse Rate [Bilate ral Radial] 72 66 Respiratory Rate 18 20 Blood Pressure [Le ft Arm] 136/68 Pulse Oximetry 96 Oxygen Delivery Me thod Room Air 03/17/24 00:30 03/17/24 03:30 03/17/24 08:00 Temperature 97.8 F 97.8 F Pulse Rate Pulse Rate [Bilate ral Radial] 66 77 63 Respiratory Rate 20 20 18 Blood Pressure [Le ft Arm] 118/51 L 125/72 Pulse Oximetry 93 96 Oxygen Delivery Me thod Room Air Room Air 03/17/24 08:00 03/17/24 08:05 03/17/24 11:00 Temperature 98.4 F Pulse Rate 63 Pulse Rate [Bilate ral Radial] 66 60 Respiratory Rate 18 18 Blood Pressure [Le ft Arm] 126/58 L 117/55 L Pulse Oximetry 94 96 Oxygen Delivery Me thod Room Air Room Air Labs Labs: Laboratory Results - last 24 hr 03/17/24 06:10 WBC 10.35 RBC 3.80 L Hgb 12.2 L Hct 36.6 L MCV 96 MCH 32 MCHC 33 RDW Coeff of Ruddy 15.5 Plt Count 184 Neut % (Auto) 65.1 Lymph % (Auto) 24.1 Hood % (Auto) 9.3 Eos % (Auto) 0.3 Baso % (Auto) 0.1 Neut # (Auto) 6.75 Lymph # (Auto) 2.49 Hood # (Auto) 1.00 H Eos # (Auto) 0.03 Baso # (Auto) 0.01 Abs Immat Gran (auto) 0.11 Imm/Tot Granulo (auto) 1.1 Sodium 138 Potassium 3.5 L Chloride 106 Carbon Dioxide 28 Anion Gap 4 L BUN 14 Creatinine 0.7 Estimated Creat Clear 61.43 Estimated GFR 91 Glucose 98 Calcium 8.8 Total Bilirubin 0.6 Direct Bilirubin 0.1 AST 69 H ALT 56 H Alkaline Phosphatase 151 H C-Reactive Protein 22.5 H Total Protein 6.1 Albumin 3.0 L
--- NOTE | 2024-03-18 19:07 | PC.NURSE ---
Nursing Care Hours: [id number] Pt this shift calm and cooperative, alert and oriented. No c/o pain. VSS. Wound dressing changed. Covered area with warm wet gauze for a 10min soak to facilitate drainage of pus. large amounts drained from posterior forearm from one open sore when lightly palpated. Second pustule observed on medial forearm that is closed with white head. Arm cleaned with Vash and dressed per order. Elongated tubi-roller print tender cover in place to prevent constriction and worsening edema. IV has resistance with flush but no pain, redness, coolness, or puffiness noted. ABX infusions given. Sm and Med BM on toilet. Transfer with EZ stand, pt needing encouragement to push through bilat legs to prevent hanging. Pt went to bed around lunch time for nap and when up for dinner, filing writer noted a large red but blanchable area on upper R glute. In center of of reddened area, purple bruise about half in long and couple centimeters wide, non blanchable. Appears to have been sitting on a crease in the blanket. Mepilex applied to area. Spoke to pt about shifting weight and that staff will be turning or off loading glutes at most every two hours. Pt denies pain to area. Bed bath given in AM, gown and linens changed. Rob patent, [place] cares done.
[2024-03-18] MEDS: DULOXETINE 30 MG CAPSULE DR PO (20:35)
[2024-03-18] MEDS: ENOXAPARIN 40 MG/0.4 ML INJ SUBCUT (20:37)
[2024-03-18] MEDS: ACETAMINOPHEN 500 MG TABLET PO (22:30)
[2024-03-19] MEDS: CEFAZOLIN 1 GM in 0.9 % SODIUM CHLORIDE Mini-bag 100 ML IVPB ×3 (02:15→18:09)
[2024-03-19 03:00] VITALS: BP 115/57; PULSE 67; RESP 16; TEMP 36.8; O2SAT 90
--- NOTE | 2024-03-19 06:14 | PC.NURSE ---
Patient pleasant, alert and oriented. Transferred with stand-lift and assist of two. PRN Tylenol given at 2230 for c/o right leg pain rated 3/10.?Dressing removed from right gluteal and purple area was assessed. Purple area still visible and continues to be non-blanchable. New Mepilex dressing applied. Patient was repositioned every 2 hours. Dressing to right arm blisters had slipped and no longer covered blisters effectively. Dressing removed. Non-adherent dressing was crusted onto blister. Dressing moistened to loosen. When dressing detached a moderate amount of brown thick pus began quickly seeping out. Mild pressure was applied to the surrounding tissue and more pus was expressed. Warm wet gauze compress?applied for several minutes. An additional moderate amount of drainage was expressed from main blister. Small secondary pustule had a trace amount of drainage noted after removing warm compress, however no additional drainage was able to be expressed with mild pressure. Areas cleansed and new dressing applied per MD orders. Patient had no complaints of discomfort and tolerated dressing change well. Dressing has remained C,D&I since that time.
[2024-03-19 06:24] LABS: Basophils Absolute Auto 0.02 K/uL (0.00-0.30); Basophils Percent Auto 0.3 % (0.0-3.0); Eosinophils Percent Auto 1.3 % (0.0-7.0); Hematocrit 33.9 % (37.0-53.0); Hemoglobin* 11.1 gm/dL (13.5-17.5); Immature Granulocytes Abs Auto 0.31 K/uL (0.00-0.30); Immature Granulocytes Pct Auto 4.1 %; Lymphocytes Absolute Auto 2.72 K/uL (0.90-2.90); Lymphocytes Percent Auto 35.6 % (20-44); Mean Corpuscular HGB Conc 33 gm/dL (32-36); Mean Corpuscular Hemoglobin 32 pg (26-34); Mean Corpuscular Volume 97 fL (80-100); Monocytes Percent Auto 10.6 % (0.0-11.0); Neutrophils Absolute Auto 3.68 K/uL (1.7-7.0); Neutrophils Percent Auto 48.1 % (42.0-72.0); Platelet Count* 198 K/uL (140-440); RDW Coefficient of Variation % 15.7 % (11.5-15.5); Red Blood Count 3.49 m/uL (4.30-5.90); White Blood Count* 7.64 K/uL (4.50-11.00)
[2024-03-19 06:41] LABS: Slide Review Reflex No
[2024-03-19 07:00] LABS: Blood Urea Nitrogen* 14 mg/dL (7-30); Carbon Dioxide* 30 mmol/L (20-32); Creatinine* 0.7 mg/dL (0.5-1.5); Est. Creatinine Clearance* 61.43; Estimated Glomerular Filt Rate 91 ml/min
[2024-03-19 07:01] LABS: Calcium* 8.6 mg/dL (8.4-10.6); Glucose* 88 mg/dL (60-115)
[2024-03-19 07:37] LABS: Anion Gap 3 mEq/L (7-15); Chloride* 106 mmol/L (96-114); Potassium* 3.5 mmol/L (3.6-5.1); Sodium* 139 mmol/L (135-149)
[2024-03-19 08:50] VITALS: BP 126/59; PULSE 64; RESP 18; TEMP 36.4; O2SAT 92
[2024-03-19] MEDS: FUROSEMIDE 40 MG TABLET 80 MG PO (08:56)
[2024-03-19] MEDS: NYSTATIN POWDER 1 APPLIC TOPICAL ×2 (08:56→23:00)
[2024-03-19] MEDS: TAMSULOSIN HCL 0.4 MG CAPSULE 0.8 MG PO (08:56)
[2024-03-19] MEDS: POTASSIUM CHLORIDE 10 MEQ CAPSULE ER 20 MEQ PO ×2 (08:56→18:09)
[2024-03-19] MEDS: SODIUM CHLORIDE 0.9 % (FLUSH) 10 ML SYRINGE 5 ML IVF ×2 (08:57→21:42)
--- NOTE | 2024-03-19 09:22 | US_ITS ---
Patient: LIO SPARROW Facility:?[facility] Patient ID:?[id number] Site Patient ID:?[id number]. Site :?[id number] Study:?US-Extremity RUE Vfx-Wieybjex-0/5/2024 10:54:32 AM Ordering Physician:?Jyoti Hernández PA-C Final Report: CLINICAL HISTORY: : Right upper extremity cellulitis with weeping wound, evaluate for abscess. COMPARISON: None. TECHNIQUE: Grayscale and color Doppler imaging was performed of the right upper extremity. FINDINGS: Subcutaneous edema with overlying skin thickening, consistent with history of cellulitis. No drainable fluid collection is seen. Dictated by Reyna Pineda MD @ 03/19/2024 11:24:47 AM Dictated by: Reyna Pineda MD @ 03/19/2024 11:25:05 Signed by:?Reyna Pineda MD @03/19/2024 11:25:05 AM (Electronic Signature)
[2024-03-19 09:35] VITALS: PULSE 59
[2024-03-19] MEDS: ACETAMINOPHEN 500 MG TABLET PO ×2 (09:38→18:10)
--- NOTE | 2024-03-19 12:40 | PM.IMPN1 ---
Progress Note: A&P Assessment and plan (1) Cellulitis of arm, right: Problem details: Unclear if this is associated with a burn on his elbow. Clearly has intense erythema and edema over his forearm. With his peripheral neuropathy and disability he is admitted to the hospital for ongoing management. Initiate vancomycin pending cultures and clinical course. Clinically appears unchanged on day 2. Culture growing MSSA. Switch from vancomycin to Ancef. 03/18 - 03/19: Noted with 2 small openings with active purulent drainage, easily expressed. Remains afebrile, no leukocytosis, BC NGTD, Wound culture MSSA Continue Ancef, notable improvement in cellulitis, clinically improving Curbside discussion with General surgery, Dr. Alegria. As long as wound remains open and actively draining, in conjunction with evidence of improving cellulitis, will likely not require surgical intervention. Agrees with obtaining ultrasound and wound consult tomorrow. Obtained ultrasound RUE which shows subcutaneous edema with overlying skin thickening, consistent with history of cellulitis. No drainable fluid collection is seen. Continue daily wound cares or more often as needed, gentle cleaning, nonadherent, absorbent dressing Wound care consult Wednesday Status: Acute (2) Peripheral neuropathy: Problem details: Affects right side more than left. Minimal sensation of pain on the right side of his body. Causing some disability and likely causing the burn on his elbow from inability to sense heat. Status: Acute (3) Facioscapulohumeral muscular dystrophy: Problem details: He is moderately disabled but functional in his independent living with his prior to the last few days of illness. With this illness he has become unable to transfer on his own. Will have therapy assess functional capabilities. Stave [employer] Tender to discuss with patient and options for acute and long-term plan for support to maximize independence. Status: Acute (4) Sinus bradycardia: Problem details: He has sinus bradycardia with a first-degree AV block. Both of these appear to be getting worse over the last couple years. Heart rate in the emergency department was in the 40s. He is asymptomatic. He reports this is a longstanding problem. Stable Status: Acute (5) First degree AV block: Problem details: Patient reports his a longstanding problem. Status: Acute (6) Discharge planning issues: Problem details: Currently patient is unable to be independent because he is not strong enough to transfer. Patient and are interested in further discussion about what the future entails for him. Acutely I expect him to recover from this infection and regain most of his strength and function over the next week. Status: Acute (7) Situational mixed anxiety and depressive disorder: Problem details: Patient and are concerned about symptoms of anxiety and depression. With his neuropathic pain on his right leg and anxiety depression I have offered to start duloxetine to see if he receives benefit from this Status: Acute (8) Decreased urine output: Problem details: He yesterday had decreased urine output and required 2 L of IV fluids for him to start making urine. 450 mL of urine output overnight. Likely due to his acute illness. UC negative Rob catheter in place Status: Acute (9) Urinary retention: Problem details: Patient is having recurrent urinary intention this is happened with previous hospitalizations for spine surgery and hip fracture surgery. Initially this was suspected to be due to BPH. Given other neurologic problems I suspect neurogenic bladder is a significant contributor to his current problems. Rob catheter in place Status: Acute (10) Constipation: Problem details: Reporting symptoms of constipation. Initiate laxatives to help bowel function and possibly help bladder function. Status: Acute Plan Continue in hospital for treatment of right arm cellulitis pending clinical improvement. Continue to work with therapy to improve functional status. Addressed urinary retention with Rob. Address constipation with laxatives. Likely will need prison facility for rehab. Wound consult 03/20/2024 Has placement at [facility] on 03/20/2024 - reevaluate along with wound consult to see if still appropriate Time Spent With Patient Total time spent: Total time spent caring for the patient today was 45 minutes. This includes time spent for the visit reviewing the chart, time spent during the visit, time spent after the visit and documentation and planning in coordination of care. Subjective Date Seen: 03/19/24 Interval history: Patient reports feeling better this morning. Sitting up in bed, even appears brighter. Slept well. Tolerating orals without nausea vomiting. Continues to have some drainage from his right upper extremity wound but notes that swelling, redness, range of motion improving. Exam Narrative: Exam Narrative: PHYSICAL EXAM General: Pleasant, conversant, NAD Cardiovascular: RRR, S1S2. Pulmonary: CTA bilaterally without rhonchi, rales, expiratory wheezes. No dyspnea on room air Neurological: Alert, answering questions appropriately, cranial nerves intact, no focal findings Extremities: No gross joint deformity or swelling. AROMI. Neurovascularly intact Skin: RUE with erythema and edema into hand (continues to improve), ulceration currently with brownish purulent drainage (2 small openings), slight desquamation, full AROM of hand and elbow, nontender Const: Vital Signs, click to edit/add: Vital Signs - 24 hr 03/18/24 15:00 03/18/24 15:00 03/18/24 15:00 Temperature 98.4 F Pulse Rate 61 Pulse Rate [Bilate ral Radial] 63 63 Respiratory Rate 18 18 Blood Pressure [Le ft Arm] 121/69 Pulse Oximetry 95 Oxygen Delivery Me thod Room Air 03/18/24 19:00 03/18/24 22:38 03/18/24 23:00 Temperature 98.2 F 98.6 F Pulse Rate 65 Pulse Rate [Bilate ral Radial] 66 67 Respiratory Rate 20 16 Blood Pressure [Le ft Arm] 112/58 L 125/56 L Pulse Oximetry 95 [facility] Room Air 03/19/24 03:00 03/19/24 08:50 03/19/24 08:50 Temperature 98.3 F 97.5 F L Pulse Rate Pulse Rate [Bilate ral Radial] 67 64 64 Respiratory Rate 16 18 18 Blood Pressure [Le ft Arm] 115/57 L 126/59 L Pulse Oximetry 90 92 [facility] Room Air 03/19/24 09:35 Temperature Pulse Rate 59 L Pulse Rate [Bilate ral Radial] Respiratory Rate Blood Pressure [Le ft Arm] Pulse Oximetry Oxygen Delivery Ct thod Labs Labs: Laboratory Results - last 24 hr 03/19/24 05:37 WBC 7.64 RBC 3.49 L Hgb 11.1 L Hct 33.9 L MCV 97 MCH 32 MCHC 33 RDW Coeff of Ruddy 15.7 H Plt Count 198 Neut % (Auto) 48.1 Lymph % (Auto) 35.6 Ray % (Auto) 10.6 Eos % (Auto) 1.3 Baso % (Auto) 0.3 Neut # (Auto) 3.68 Lymph # (Auto) 2.72 Ray # (Auto) 0.80 Eos # (Auto) 0.10 Baso # (Auto) 0.02 Abs Immat Gran (auto) 0.31 H Imm/Tot Granulo (auto) 4.1 Sodium 139 Potassium 3.5 L Chloride 106 Carbon Dioxide 30 Anion Gap 3 L BUN 14 Creatinine 0.7 Estimated Creat Clear 61.43 Estimated GFR 91 Glucose 88 Calcium 8.6
[2024-03-19 15:00] VITALS: BP 130/57; PULSE 56; PULSE 64; PULSE 65; RESP 18; TEMP 36.5; O2SAT 92
[2024-03-19 19:00] VITALS: BP 129/53; PULSE 61; RESP 18; TEMP 36.8; O2SAT 93
--- NOTE | 2024-03-19 19:08 | PC.NURSE ---
Nursing Care Hours: [id number] Pt this shift alert and oriented, calm and cooperative. C/o bilat leg pain throughout the day. Pt believes its from inactivity. Treated per eMAR and position changes. Increased strength throughout today compared to yesterday. Pt assisting with feeding self, able to grasp EZ stand electric distribution checker independently. Stood at edge of bed with PT/OT. R glute pink and blanchable, bruise in center fading from last night, Mepilex in place. IV patent but still has resistance with flushes. Med BM this shift. Rob patent and draining light carlos color urine. Bed bath given this AM. Ultrasound done on R arm, see report. Warm compress applied with dressing change. Small amount of brown drainage from open area when palpated. Decreased from yesterday. No other areas draining at this time. Wash with Vash and dressed per order.
[2024-03-19] MEDS: DULOXETINE 30 MG CAPSULE DR PO (21:41)
[2024-03-19] MEDS: SENNOSIDES 1 TAB TABLET PO (21:41)
[2024-03-19] MEDS: ENOXAPARIN 40 MG/0.4 ML INJ SUBCUT (21:42)
[2024-03-19 23:00] VITALS: BP 125/60; PULSE 66; PULSE 70; RESP 16; TEMP 36.3; O2SAT 91
[2024-03-20] VITALS (9 sets, daily range): BP systolic 137–145; BP diastolic 64–77; PULSE 56–66; RESP 16–18; TEMP 36.4–36.8; O2SAT 92–97
[2024-03-20] MEDS: CEFAZOLIN 1 GM in 0.9 % SODIUM CHLORIDE Mini-bag 100 ML IVPB ×3 (01:45→18:04)
[2024-03-20 07:12] LABS: Albumin* 2.9 g/dL (3.3-5.0); Chloride* 104 mmol/L (96-114); Potassium* 3.4 mmol/L (3.6-5.1); Sodium* 139 mmol/L (135-149)
[2024-03-20 07:14] LABS: Creatinine* 0.7 mg/dL (0.5-1.5); Est. Creatinine Clearance* 61.43; Estimated Glomerular Filt Rate 91 ml/min
[2024-03-20 07:15] LABS: Alanine Aminotransferase* 27 U/L (4-50); Alkaline Phosphatase* 147 U/L (40-150); Anion Gap 4 mEq/L (7-15); Aspartate Amino Transferase* 45 U/L (12-35); Basophils Absolute Auto 0.01 K/uL (0.00-0.30); Basophils Percent Auto 0.1 % (0.0-3.0); Bilirubin Direct* 0.1 mg/dL (0.0-0.5); Bilirubin Total* 0.4 mg/dL (0.1-1.5); Blood Urea Nitrogen* 14 mg/dL (7-30); Carbon Dioxide* 31 mmol/L (20-32); Eosinophils Absolute Auto 0.14 K/uL (0.00-0.50); Eosinophils Percent Auto 1.9 % (0.0-7.0); Glucose* 110 mg/dL (60-115); Hematocrit 34.1 % (37.0-53.0); Hemoglobin* 11.2 gm/dL (13.5-17.5); Immature Granulocytes Abs Auto 0.34 K/uL (0.00-0.30); Immature Granulocytes Pct Auto 4.6 %; Lymphocytes Absolute Auto 2.49 K/uL (0.90-2.90); Lymphocytes Percent Auto 33.7 % (20-44); Mean Corpuscular HGB Conc 33 gm/dL (32-36); Mean Corpuscular Hemoglobin 32 pg (26-34); Mean Corpuscular Volume 98 fL (80-100); Monocytes Percent Auto 10.6 % (0.0-11.0); Neutrophils Absolute Auto 3.62 K/uL (1.7-7.0); Neutrophils Percent Auto 49.1 % (42.0-72.0); Platelet Count* 226 K/uL (140-440); RDW Coefficient of Variation % 15.7 % (11.5-15.5); Red Blood Count 3.48 m/uL (4.30-5.90); Total Protein* 6.1 g/dL (6.0-8.3); White Blood Count* 7.38 K/uL (4.50-11.00)
[2024-03-20 07:16] LABS: Calcium* 8.5 mg/dL (8.4-10.6)
[2024-03-20 07:27] LABS: Slide Review Reflex No
[2024-03-20] MEDS: TAMSULOSIN HCL 0.4 MG CAPSULE 0.8 MG PO (08:51)
[2024-03-20] MEDS: FUROSEMIDE 40 MG TABLET 80 MG PO (08:51)
[2024-03-20] MEDS: ACETAMINOPHEN 500 MG TABLET PO ×2 (08:51→18:18)
[2024-03-20] MEDS: POTASSIUM CHLORIDE 10 MEQ CAPSULE ER 20 MEQ PO ×2 (08:54→18:05)
[2024-03-20] MEDS: SENNOSIDES 1 TAB TABLET PO ×2 (08:54→20:55)
--- NOTE | 2024-03-20 08:54 | PC.NURSE ---
Patient pleasant, alert and oriented. Transferred to toilet with stand-lift and assist of two.?Mepilex intact to?right gluteal. Dressing changed to blister on right arm as it was no longer completely covering area. Small amount of trejo colored pus was expressed. Area cleansed and new dressing applied per MD orders. Patient tolerated dressing change well. ?
--- NOTE | 2024-03-20 09:26 | P.DS_ITS ---
DS: Providers Provider Time Seen by Provider: 09:35 Date Seen: 03/21/24 Date of admission: 03/15/24 13:42 Primary care physician: Carlos Cradenas MD Admitting Clinician: Torres Smith MD Consults: 03/15/24 12:45 Consult to Occupational Therapy [CONS] Routine Comment: Reason(s) for OT Consult:: Evaluate and Treat Any Restrictions?:: No Restrictions Consult to Physical Therapy [CONS] Routine Comment: Reason(s) for PT Consult:: Evaluate and Treat Any Restrictions?:: No Restrictions Consult to Foot Press Operator [CONS] Routine Comment: Reason for Consult:: Discharge Planning Needs 03/15/24 14:45 Consult to Occupational Therapy [CONS] Routine Comment: Reason(s) for OT Consult:: Evaluate and Treat Any Restrictions?:: No Restrictions Consult to Physical Therapy [CONS] Routine Comment: Reason(s) for PT Consult:: Evaluate and Treat Any Restrictions?:: No Restrictions 03/20/24 06:00 Consult to Wound Care [CONS] Routine Comment: RUE wound/cellulitis Consulting Provider: Reyna Hernandez Attending Physician on discharge: Breanne Prescott MD Date of Discharge: 03/21/24 DS: Diagnosis Discharge Diagnosis (1) Cellulitis of arm, right: Status: Acute Problem details: Unclear if this is associated with a burn on his elbow. Clearly has intense erythema and edema over his forearm. With his peripheral neuropathy and disability he is admitted to the hospital for ongoing management. Initiate vancomycin pending cultures and clinical course. Clinically appears unchanged on day 2. Culture growing MSSA. BCx2 neg. Switched from vancomycin to Ancef. 03/18 - 03/19: Noted with 2 small openings with active purulent drainage, easily expressed. Remains afebrile, no leukocytosis, BC NGTD, Wound culture MSSA Continue Ancef, notable improvement in cellulitis, clinically improving Curbside discussion with General surgery, Dr. Alegria. As long as wound remains open and actively draining, in conjunction with evidence of improving cellulitis, will likely not require surgical intervention. Agrees with obtaining ultrasound and wound consult tomorrow. Obtained ultrasound RUE which shows subcutaneous edema with overlying skin thickening, consistent with history of cellulitis. No drainable fluid collection is seen. Continue daily wound cares or more often as needed, gentle cleaning, nonadherent, absorbent dressing 03/20 - Spoke with Dr. Najera from General surgery who was here for wound care consult. She recommended CT right forearm to look for abscess noting that even though ultrasound was negative, she was able to express purulent drainage from the forearm. Continue Ancef, obtain CT right forearm, will hold off on discharge to extended assisted living until possibly tomorrow. I&D by Dr. Najera of 6x6cm abscess. 03/21 - Wound packed by gen surgery today. F/u with gen surg next week. Wound care recommendations are written in discharge plan. Transition to oral keflex on discharge. (2) Peripheral neuropathy: Status: Chronic Problem details: Affects right side more than left. Minimal sensation of pain on the right side of his body. Causing some disability and likely causing the burn on his elbow from inability to sense heat. (3) Facioscapulohumeral muscular dystrophy: Status: Chronic Problem details: He is moderately disabled but functional in his independent living with his prior to the last few days of illness. With this illness he has become unable to transfer on his own. Will have therapy assess functional capabilities. Foot Press Operator to discuss with patient and options for acute and long-term plan for support to maximize independence. (4) Sinus bradycardia: Status: Chronic Problem details: He has sinus bradycardia with a first-degree AV block. Both of these appear to be getting worse over the last couple years. Heart rate in the emergency department was in the 40s. He is asymptomatic. He reports this is a longstanding problem. Stable (5) First degree AV block: Status: Chronic Problem details: Patient reports his a longstanding problem. (6) Discharge planning issues: Status: Acute Problem details: Currently patient is unable to be independent because he is not strong enough to transfer. - planning extended assisted living when medically stable (7) Situational mixed anxiety and depressive disorder: Status: Acute Problem details: Patient and are concerned about symptoms of anxiety and depression. With his neuropathic pain on his right leg and anxiety depression I have offered to start duloxetine to see if he receives benefit from this - duloxetine started 03/15/2024 (8) Decreased urine output: Status: Acute Problem details: He yesterday had decreased urine output and required 2 L of IV fluids for him to start making urine. 450 mL of urine output overnight. Likely due to his acute illness. UC negative Rob catheter in place - 5/6 Rob catheter discontinued with trial of voiding (9) Urinary retention: Status: Acute Problem details: Patient is having recurrent urinary intention this is happened with previous hospitalizations for spine surgery and hip fracture surgery. Initially this was suspected to be due to BPH. Given other neurologic problems I suspect neurogenic bladder is a significant contributor to his current problems. Rob catheter in place - 5/6 Rob catheter discontinued with trial of voiding (10) Constipation: Status: Acute Problem details: Reporting symptoms of constipation. On laxatives to help bowel function and possibly help bladder function. (11) History of malignant neoplasm of bladder: Status: Chronic Problem details: s/p bladder surgery 06/25, s/p BCG treatment DS: Summary Hospital Course Hospital Course: Roberto Jane is a 84 year old male presents to the emergency room with a 3-4 day history red and swollen right arm and weakness. 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 Over the past few years he has been wheelchair-bound for this. He has also had right-sided peripheral neuropathy of uncertain etiology which has caused his right upper and lower extremity to be relatively numb. Approximately 2 months ago his right elbow rested on a hot stove any burn himself without being aware of the pain due to his neuropathy. This caused a large ulcer over his posterior aspect of his olecranon. He has been followed by our wound clinic and this has been healing over the past 2 months to the point is now down to a 1 x 2 cm ulcer with eschar over it. This past weekend, 3-4 days ago, he started notice redness in his right arm. It was not painful as he has poor sensation. This appears to be getting worse. Along with this he is feeling weaker to the point he can no longer transfer from bed to chair and chair to toilet on his own. He lives independently with his and has been doing independent transfers on his own up until the last few days. He is not aware of a fever. He is not a aware of any other injury to his arm though he does note that he rests his right forearm on his dresser or other furniture for transfers. The cause of his neuropathy is unclear. He does have muscular dystrophy but his neuropathy may be a separate condition. 3.5 years ago he had a C1 and C2 fracture. 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 His last evaluation with his [place] neurologist was 2 years ago and he declined further testing for the cause of his disabilities at that time. In August of 2020 to he was admitted for a hip fracture. He had urinary retention and required a Rob catheter during his hospital stay. Subsequently the catheter was removed and he reports these unaware of urinary problems including urinary frequency dysuria. March 16: Patient reports minimal improvement in his weakness. He was still unable to stand for transfer. He did tolerate the EZ stand. He is not aware of any fever. Appetite is improved. March 17: Patient continues to be concerned about weakness. Needing a lot of assistance with ADLs. His urinary retention is worse. He has been straight cath twice. Now his postvoid residual is 600 mL. He feels a bit constipated. No BM for the last couple days. No fever. March 18: Pus-like drainage noted from right forearm in middle of cellulitic area. March 19: Wound culture grew out MSSA, patient switched to Ancef. Curbside discussion with General surgery, Dr. Alegria. Right upper extremity ultrasound and wound consult ordered. 03/20: Dr. Najera from General surgery consulted for wound. CT forearm obtained, but of poor quality. Abscess of right forearm was I&D'd and packed. 03/21: Patient doing well, Dr. Najera saw patient again and repacked wound, and made recommendations for outpatient wound care and follow-up. Due to patient's ongoing rehab needs, he is discharging to [facility] for extended assisted living. Rob was removed 36 hours ago and patient has failed voiding trial. Rob catheter was reinserted and will have patient follow-up as an outpatient with Urology in about a week to 10 days. Time Spent with Patient Time attestation: Total time spent providing and/or coordinating discharge services: Exam Narrative: Exam Narrative: General: No acute distress. Awake, alert, oriented x3. No pallor. No jaundice. Cardiovascular: Regular rate and rhythm. No murmurs, gallops, or rubs. Respiratory: Clear to auscultation bilaterally. No wheezes or crackles. Abdomen: Bowel sounds present. Soft, nondistended, nontender. Extremities: Right elbow covered with Mepilex. Dr. Najera was dressing right forearm wound when I walked in, so I did not visualize it. The skin superior to the wound is less erythematous and slightly less edematous today. No pedal edema. Const: Vital Signs, click to edit/add: Vital Signs - 24 hr 03/19/24 09:35 03/19/24 15:00 03/19/24 15:00 Temperature 97.7 F Pulse Rate 59 L 65 Pulse Rate [Bilate ral Radial] 56 L Pulse Rate [Pulse Oximeter] Respiratory Rate 18 Blood Pressure [Le ft Arm] 130/57 L Pulse Oximetry 92 Oxygen Delivery Tn thod Room Air 03/19/24 15:00 03/19/24 19:00 03/19/24 23:00 Temperature 98.3 F 97.3 F L Pulse Rate Pulse Rate [Bilate ral Radial] 64 Pulse Rate [Pulse Oximeter] 61 66 Respiratory Rate 18 18 16 Blood Pressure [Le ft Arm] 129/53 L 125/60 Pulse Oximetry 93 91 Oxygen Delivery Tn thod Room Air Room Air 03/19/24 23:00 03/20/24 03:00 03/20/24 07:00 Temperature 98.0 F Pulse Rate 70 Pulse Rate [Bilate ral Radial] Pulse Rate [Pulse Oximeter] 62 62 Respiratory Rate 16 18 Blood Pressure [Le ft Arm] 145/75 H Pulse Oximetry 94 Oxygen Delivery Tn thod Room Air 03/20/24 07:00 03/20/24 08:30 Temperature 97.6 F Pulse Rate 61 Pulse Rate [Bilate ral Radial] Pulse Rate [Pulse Oximeter] 59 L Respiratory Rate 18 Blood Pressure [Le ft Arm] 139/66 Pulse Oximetry 92 Oxygen Delivery Tn thod Room Air DS: Data Data Completed and Pending Completed studies during hospitalization: Procedures 03/20/24 I&D right forearm abscess by Dr. Najera. Labs on day of discharge: Labs from last 24 hours 03/20/24 05:55 WBC 7.38 RBC 3.48 L Hgb 11.2 L Hct 34.1 L MCV 98 MCH 32 MCHC 33 RDW Coeff of Ruddy 15.7 H Plt Count 226 Neut % (Auto) 49.1 Lymph % (Auto) 33.7 [place] % (Auto) 10.6 Eos % (Auto) 1.9 Baso % (Auto) 0.1 Neut # (Auto) 3.62 Lymph # (Auto) 2.49 [place] # (Auto) 0.80 Eos # (Auto) 0.14 Baso # (Auto) 0.01 Abs Immat Gran (auto) 0.34 H Imm/Tot Granulo (auto) 4.6 Sodium 139 Potassium 3.4 L Chloride 104 Carbon Dioxide 31 Anion Gap 4 L BUN 14 Creatinine 0.7 Estimated Creat Clear 61.43 Estimated GFR 91 Glucose 110 Calcium 8.5 Total Bilirubin 0.4 Direct Bilirubin 0.1 AST 45 H ALT 27 Alkaline Phosphatase 147 Total Protein 6.1 Albumin 2.9 L Preliminary micro results at discharge 03/15/24 10:17 Blood Culture - Preliminary Blood NO GROWTH AFTER 96 HOURS 03/15/24 10:00 Blood Culture - Preliminary Blood NO GROWTH AFTER 96 HOURS Specimen: [id number] COMP Collected: 03/15/24-1003 Received: 03/15/24 -1009 Source: Arm Rt Sp Descrip: Sub Dr: Jessica Call M.D. Dr: Procedure Result Site Wound Culture* Final ML Organism 1 Staphylococcus aureus Quantity of Growth Moderate amount S aureus JASE RX --------- --- Ciprofloxacin <=0.5 S Clindamycin 0.25 S Daptomycin 0.25 S Doxycycline <=0.5 S Erythromycin <=0.25 S Gentamicin <=0.5 S Levofloxacin 0.5 S Linezolid 2 S * Moxifloxacin <=0.25 S * Oxacillin Jase 0.5 S Rifampin <=0.5 S Tetracycline <=1 S Tigecycline <=0.12 S Trimethoprim/Sulfamethoxazole <=10 S Vancomycin 1 S Study: US-Extremity Right UEV RT-03/15/2024 11:15:09 AM Ordering Physician: JESSICA CALL M.D. Final Report: Indication Swelling and redness Technique Venous duplex ultrasound of the right upper extremity utilizing compression with grayscale and color and spectral Doppler. Comparison None Findings There is no deep vein thrombosis in the right brachiocephalic, internal jugular, subclavian, axillary, brachial, radial, or ulnar veins. There is no superficial vein thrombosis in the basilic or cephalic veins. There is minimal soft tissue edema in the right arm. Impression No deep vein thrombosis in the right upper extremity. Dictated by Michael Liu MD @ 03/15/2024 11:23:07 AM Signed by: Michael Liu MD @03/15/2024 11:23:07 AM (Electronic Signature) Study: US-Extremity RUE Xnr-Stvurysi-1/5/2024 10:54:32 AM Ordering Physician: Jyoti Hernández PA-C Final Report: CLINICAL HISTORY: : Right upper extremity cellulitis with weeping wound, evaluate for abscess. COMPARISON: None. TECHNIQUE: Grayscale and color Doppler imaging was performed of the right upper extremity. FINDINGS: Subcutaneous edema with overlying skin thickening, consistent with history of cellulitis. No drainable fluid collection is seen. Dictated by Reyna Pineda MD @ 03/19/2024 11:24:47 AM Dictated by: Reyna Pineda MD @ 03/19/2024 11:25:05 (Electronic Signature) Study: CT-Extremity Right FOREARM 110CC ISOVUE 370-03/20/2024 11:16:02 AM Ordering Physician: DR. PRESCOTT Final Report: INDICATION: Cellulitis. Draining wound. TECHNIQUE: Significant limitation due to arm at the site and beam hardening from the large body habitus as well as lumbar fusion hardware. Limited imaging of the distal forearm. 110 mL Isovue-370 IV contrast was administered. IMPRESSION: There does appear to be edematous thickening of subcutaneous soft tissues and likely some skin thickening dorsal and ulnar margin. No air. No radiopaque foreign body. No obvious fluid collection. No bone resorption. IMPRESSION: Significantly limited to essentially nondiagnostic exam. No obvious fluid. No soft tissue gas. Please note that all CT scans at this facility use dose modulation, iterative reconstruction, and/or weight-based dosing when appropriate to reduce radiation dose to as low as reasonably achievable. Dictated by Allan Camacho MD @ 03/20/2024 11:38:09 AM Signed by: Allan Camacho MD @03/20/2024 11:38:09 AM (Electronic Signature) Discharge Plan Discharge Disposition: [facility] Date of Admission: 03/15/24 13:42 Attending Provider on Discharge: Breanne Prescott Consulting Providers: Savannah Najera Primary Care Provider: Carlos Cardenas Discharge Medications: New cephalexin 500 mg capsule 500 mg PO TID Qty: 15 0RF sennosides [Senna Lax] 8.6 mg Tablet 8.6 mg PO BID Qty: 60 0RF potassium chloride 10 mEq Capsule, Extended Release 20 meq PO DAILY Qty: 30 0RF nystatin 100,000 unit/gram Powder 1 applic topical BID Qty: 30 0RF duloxetine 30 mg Capsule,Delayed Release(Dr/Ec) 30 mg PO HS Qty: 30 0RF Continued acetaminophen 500 mg capsule 500 - 1,000 mg PO Q4-6H MDD 4000 mg per day PRNQty: 100 0RF furosemide [Lasix] 80 mg tablet 80 mg PO QAM Qty: 90 0RF Changed tamsulosin 0.4 mg capsule 0.8 mg PO DAILY Qty: 60 0RF gabapentin [Neurontin] 100 mg capsule 100 mg PO HS PRN (Reason: Neruopathy) Qty: 30 0RF Discharge Orders: Discharge Order (Routine); Ordered 03/21/24 Ordered By: Breanne Prescott Additional Instructions: Follow-up with Urology 7-10 days for acute urinary retention. Activity Level: Up with assist and Other Activity Detail: Uses wheelchair Discharge Diet: Regular Follow Up Appointments: Carlos Cardenas MD [Primary Care Provider] - Forms: [facility] Info Instructions Wound Care: Change dressing to elbow wound every other day. Cleanse with wound cleanser or saline. Apply Medihoney to wound prior to replacing Mepilex. Daily packing change to right arm wound with iodoform daily. Place ABD over wound and wrap in one layer of Kerlix. Apply tubigrip to arm. Admit to: SNF Discharge Potential: Good Length of Stay: <30 days Can use facility standing orders?: Yes Code Status: DNR/DNI TEDs: N/A Rehab Potential: Fair Therapy: Physical Therapy and Occupational Therapy Therapy Orders: Evaluate and Treat Oxygen: No Urinary Catheter: Yes Lab Orders: potassium in 1 week Orders are good >30 days: No Signature: Breanne Prescott MD
--- NOTE | 2024-03-20 09:38 | CT_ITS ---
Patient: LIO SPARROW Facility:?[facility] Patient ID:?[id number] Site Patient ID:?[id number]. Site :?[id number] Study:?CT-Extremity Right FOREARM 110CC ISOVUE 370-03/20/2024 11:16:02 AM Ordering Physician:?DR. PRESCOTT Final Report: INDICATION: Cellulitis. Draining wound. TECHNIQUE: Significant limitation due to arm at the site and beam hardening from the large body habitus as well as lumbar fusion hardware. Limited imaging of the distal forearm. 110 mL Isovue-370 IV contrast was administered. IMPRESSION: There does appear to be edematous thickening of subcutaneous soft tissues and likely some skin thickening dorsal and ulnar margin. No air. No radiopaque foreign body. No obvious fluid collection. No bone resorption. IMPRESSION: Significantly limited to essentially nondiagnostic exam. No obvious fluid. No soft tissue gas. Please note that all CT scans at this facility use dose modulation, iterative reconstruction, and/or weight-based dosing when appropriate to reduce radiation dose to as low as reasonably achievable. Dictated by Allan Camacho MD @ 03/20/2024 11:38:09 AM Signed by:?Allan Camacho MD @03/20/2024 11:38:09 AM (Electronic Signature)
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
--- NOTE | 2024-03-20 11:17 | PC.SOCIAL ---
Discharge planning: toll test desk worker was informed by the provider on duty that pt is not ready for discharge today. toll test desk worker notified Camille at [facility] and shared that the provider on duty was hoping for a discharge tomorrow if pt is medically stable. Social work to follow-up as needed.
[2024-03-20] MEDS: LIDOCAINE 1% MDV 20 ML INJECTION (13:43)
[2024-03-20] MEDS: NYSTATIN POWDER 1 APPLIC TOPICAL ×2 (13:44→20:55)
--- NOTE | 2024-03-20 15:32 | PC.NURSE ---
Nursing Care Hours: 070-1500 Pt this shift calm and cooperative, alert and oriented. No c/o pain but pt requested Tylenol prior to getting up. VSS. Using EZ stand for transfers, tolerating well. CT of R arm done. Dr Najera performed bedside debridement of R arm abscess, packed the wound and applied abdominal dressing and Kerlix wrap. Small amount of bloody drainage noted on wrap. Reinforced with gauze and Kerlix wrap. Reported to oncoming nurse to call Reinaldo if blood continues to soak through bandage. Rob removed this morning for void trial. After 5 hours, pt c/o urge to void but only able to trickle small amounts at a time. Bladder scan showing around 600ml, straight cath performed using sterile technique and 700ml drained, pt states relief. Right glute continues to be reddened and bruise in center continues to fade. Redness is blanchable, Mepilex in place. Tele shows A.fib with bradycardia.
[2024-03-20] MEDS: 0.9 % SODIUM CHLORIDE 250 ml IV (18:05)
[2024-03-20] MEDS: SODIUM CHLORIDE 0.9 % (FLUSH) 10 ML SYRINGE 5 ML IVF (18:05)
[2024-03-20] MEDS: ENOXAPARIN 40 MG/0.4 ML INJ SUBCUT (20:55)
[2024-03-20] MEDS: DULOXETINE 30 MG CAPSULE DR PO (20:55)
--- NOTE | 2024-03-20 23:41 | PC.NURSE ---
End of Shift: Patient pleasant and cooperative. Afebrile. PRN Tylenol given x1 for back discomfort. Up to chair and bathroom with 2 assist and EZ stand. Frequent turn and reposition. Dressing to right forearm noted to have some drainage. Changed outer kerlix and ABD dressing and serosanguineous drainage noted. No active bleeding. Patient able to void small amounts. Bladder scanned for 532 mL. Updated MD and straight cathed x1.
[2024-03-21] MEDS: CEFAZOLIN 1 GM in 0.9 % SODIUM CHLORIDE Mini-bag 100 ML IVPB ×2 (02:18→10:12)
[2024-03-21] MEDS: 0.9 % SODIUM CHLORIDE 250 ml IV (02:24)
[2024-03-21 02:46] VITALS: BP 125/58; PULSE 62; RESP 16; TEMP 36.7; O2SAT 93
[2024-03-21] MEDS: ACETAMINOPHEN 500 MG TABLET PO (04:09)
--- NOTE | 2024-03-21 06:24 | PC.NURSE ---
End of shift note [id number]: Pt noted to be alert & oriented and able to make needs known. He transfers with EZ stand and does not ambulate. VSS and pt has been afebrile. Dressing to R forearm and R elbow noted to be C/D/I upon inspection. Pt refused SCDs overnight when educated. Evening nurse placed Mepilex dressing to sacrum. Pt on telemetry with NSR with first degree AV block noted (pt has hx of this). Pt refused repositioning at approximately 0030 despite education and encouragement though did allow staff to reposition him other times throughout the night. Bladder scan completed at 0615 this morning due to no void x 8 hours. Bladder scan of 350 mL noted. Staff to address urinary retention with day hospitalist. PRN Tylenol given for pain to L side of coccyx per pt report. IV to L wrist patent and SL.
[2024-03-21 07:00] VITALS: BP 122/55; PULSE 59; RESP 20; TEMP 36.7; O2SAT 95
--- NOTE | 2024-03-21 07:34 | PC.NURSE ---
Dr. Lunsford updated regarding bladder scan of 350 mL this AM.
[2024-03-21 07:49] VITALS: PULSE 58
[2024-03-21] MEDS: POTASSIUM CHLORIDE 10 MEQ CAPSULE ER 20 MEQ PO (08:29)
[2024-03-21] MEDS: FUROSEMIDE 40 MG TABLET 80 MG PO (08:30)
[2024-03-21] MEDS: SENNOSIDES 1 TAB TABLET PO (08:30)
[2024-03-21] MEDS: TAMSULOSIN HCL 0.4 MG CAPSULE 0.8 MG PO (08:30)
[2024-03-21] MEDS: NYSTATIN POWDER 1 APPLIC TOPICAL (08:31)
[2024-03-21] MEDS: SODIUM CHLORIDE 0.9 % (FLUSH) 10 ML SYRINGE 5 ML IVF (08:31)
[2024-03-21 08:59] LABS: Basophils Absolute Auto 0.01 K/uL (0.00-0.30); Basophils Percent Auto 0.1 % (0.0-3.0); Eosinophils Absolute Auto 0.14 K/uL (0.00-0.50); Eosinophils Percent Auto 1.8 % (0.0-7.0); Hematocrit 35.2 % (37.0-53.0); Hemoglobin* 11.3 gm/dL (13.5-17.5); Immature Granulocytes Abs Auto 0.34 K/uL (0.00-0.30); Immature Granulocytes Pct Auto 4.3 %; Lymphocytes Absolute Auto 2.65 K/uL (0.90-2.90); Lymphocytes Percent Auto 33.5 % (20-44); Mean Corpuscular HGB Conc 32 gm/dL (32-36); Mean Corpuscular Hemoglobin 32 pg (26-34); Mean Corpuscular Volume 99 fL (80-100); Monocytes Percent Auto 8.4 % (0.0-11.0); Neutrophils Percent Auto 51.9 % (42.0-72.0); Platelet Count* 264 K/uL (140-440); RDW Coefficient of Variation % 15.7 % (11.5-15.5); Red Blood Count 3.55 m/uL (4.30-5.90)
[2024-03-21 09:02] LABS: Slide Review Reflex No
[2024-03-21 09:12] LABS: Chloride* 106 mmol/L (96-114)
[2024-03-21 09:13] LABS: Potassium* 3.8 mmol/L (3.6-5.1); Sodium* 141 mmol/L (135-149)
[2024-03-21 09:15] LABS: Creatinine* 0.6 mg/dL (0.5-1.5); Est. Creatinine Clearance* 61.43; Estimated Glomerular Filt Rate 96 ml/min
[2024-03-21 09:16] LABS: Anion Gap 2 mEq/L (7-15); Blood Urea Nitrogen* 16 mg/dL (7-30); Calcium* 8.7 mg/dL (8.4-10.6); Carbon Dioxide* 33 mmol/L (20-32); Glucose* 138 mg/dL (60-115)
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
--- NOTE | 2024-03-21 11:53 | PC.SOCIAL ---
Discharge planning: Pt was discharged today to [facility] at [facility]. Pt will have dressing changes and wound care at [facility]. youth accommodation support worker secure emailed the discharge orders to Maria G at [facility]. Social work to follow-up as needed.
--- NOTE | 2024-03-21 14:16 | PC.NURSE ---
DRESSING TO RIGHT ARM DONE BY DR. SHELTON. UP WITH EZ STAND TO BATHROOM AND RECLINER. PATIENT ATTEMPTED TO URINATE ON TOILET BUT CONTINUED TO BE UNABLE TO VOID. CARTER 16FR PLACED PER MD ORDER WITHOUT DIFFICULTY. REPORT GIVEN TO ANJEL STRAUSS AT [facility]. SALINE LOCK DC'D. PATIENT REQUESTED PRESCRIPTIONS BE SENT TO [facility]. PATIENT TRANSFERRED TO [facility] VIA [facility].
[2024-03-22 02:20] LABS: Magnesium* 2.5 mg/dL (1.5-2.6)
== END 2024-03-21 11:38 | DRG 603 ==
LOC: ED 10:06 → MEDSURG 13:17
PROVIDERS: Family Medicine; Physician Assistant; Admitting Provider Family Medicine; Emergency Provider Family Medicine; PCP Internal Medicine; Visit Provider Family Medicine
DX: L03.113 Cellulitis of right upper limb (principal); G95.0 Syringomyelia and syringobulbia; L98.498 Non-pressure chronic ulcer of skin of other sites with other specified severity; L02.413 Cutaneous abscess of right upper limb; T22.021 Burn of unspecified degree of right elbow; X15.0XXS Contact with hot stove (kitchen), sequela; G71.00 Muscular dystrophy, unspecified; I44.0 Atrioventricular block, first degree; B95.61 Methicillin susceptible Staphylococcus aureus infection as the cause of diseases classified elsewhere; G71.02 Facioscapulohumeral muscular dystrophy; I73.9 Peripheral vascular disease, unspecified; G62.9 Polyneuropathy, unspecified; Z99.3 Dependence on wheelchair; F43.23 Adjustment disorder with mixed anxiety and depressed mood; Z85.51 Personal history of malignant neoplasm of bladder; R00.1 Bradycardia, unspecified; N40.0 Benign prostatic hyperplasia without lower urinary tract symptoms; N40.1 Benign prostatic hyperplasia with lower urinary tract symptoms; R39.198 Other difficulties with micturition; R33.8 Other retention of urine; K59.00 Constipation, unspecified
CPT/HCPCS: 36415; 51701; 51702; 51798; 73201; 76882; 80048; 80076; 81001; 81003; 83605; 83735; 85025; 85610; 85730; 86140; 87040; 87070; 87086; 87186; 90715; 93971; 97110; 97161; 97166; 97530; 97535; 99284; 99285; A9270; J0690; J1650; J3370; J7030; J7050; J7120; Q9967

== ENCOUNTER 2024-04-03 07:02 | Outpatient (CLI) | payer OTHER, SELFPAY ==
--- OUTSIDE RECORDS SUMMARY | 2024-04-06 10:50 | XMS_ITS | Continuity of Care Document ---
Author Organization Z [facility] Address [address] [place] [address] Phone Care Team Providers Care Reed Fixer Name Role Phone Unavailable Unavailable Unavailable Advance Directives Directive Yes / No Effective Date File Name No Information Encounters Encounter Description Practice Location Reason(s) For Visit Diagnoses Date Provider Providers Copied on Encounter Z [facility], [address], [place], [address], [place] tel:[phone] [facility] [place] No Information Mar-0 6-200 9 No Information Family History Family Member Type Diagnosis Age At Onset No Information Payers Payer name Insurance type Covered alliance party ID Authoriza tion(s) Medicare MB [id number] [facility] Ins CI [id number] Social History Type Description Quantity Date Captured [...]
--- OUTSIDE RECORDS SUMMARY | 2024-04-06 10:50 | XMS_ITS | Clinical Summary ---
Author Organization [facility] Address [place], [place] [address] Care Team Providers Care Field Attendant Name Role Phone Carlos Cardenas MD Primary [...] Comments Blood Pressure 140/62 10/07/2022 4:12 PM POLYMERIZATION HELPER Pulse 57 10/07/2022 4:12 PM POLYMERIZATION HELPER Temperature 36.9 ??C (98.5 ??F) 10/07/2022 4:12 PM CS T Respiratory Rate 16 10/05/2022 9:05 AM POLYMERIZATION HELPER Oxygen Saturation 99% 10/07/2022 4:12 PM POLYMERIZATION HELPER Inhaled Oxygen Concentration - - Weight 86.4 [...] 1 - PCV) 006 COVID-19 vaccine series ( - 2022-24 season) 3 Influenza for age 65+ 07/16/2024 Care Teams Field Attendant Relationship Specialty Start Date End Date Carlos Cardenas MD [address] [place] [address] PCP - General 10/12/07
== END 2024-04-03 07:03 | disposition home or self-care (01) ==
LOC: AMB 04-06 10:48
PROVIDERS: PCP Internal Medicine; Visit Provider Family Medicine
DX: R33.9 Retention of urine, unspecified (principal)
CPT/HCPCS: A0425; A0428; A0429

== ENCOUNTER 2024-04-03 07:22 | Emergency (ER) | payer OTHER, SELFPAY ==
[2024-04-03 07:28] VITALS: BP 156/82; PULSE 71; RESP 16; TEMP 36.2; O2SAT 96; BMI 29.8
--- NOTE | 2024-04-03 07:38 | ED_ITS ---
HPI - General Adult General Chief complaint: Urogenital Problems, Male Stated complaint: urinary retention Time Seen by Provider: 04/03/24 07:39 History of Present Illness HPI narrative: patient lives at [facility] and called EMS for urinary retention and last void was yesterday afternoon and having dribbles after that. denies any bleeding in the urine. had a procedure on the right arm due to an infection at the bedside by Dr. William. 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 84-year-old man presenting to the emergency department with a concern of urinary retention. Did have a recent procedure. Has a history of postprocedural/anesthetic related urinary retention as he describes it. Clinic notes on postop follow-up describe a history of neurogenic bladder. Following procedure during hospitalization did require catheterization for urinary retention. This was removed 5 days ago then in clinic. Beginning yesterday afternoon with last void has been retaining urine. Has not had any new fever. Currently taking doxycycline for the skin lesion. History muscular dystrophy. Related Data Previous Rx's Medication Instructions Recorded acetaminophen 500 mg capsule 500 - 1,000 mg (1 - 2 x 500 mg) PO 08/21/22 Q4-6H PRN #100 caps furosemide 80 mg tablet (Lasix) 80 mg PO QAM Edema #90 tabs 03/03/24 duloxetine 30 mg capsule,delayed 30 mg PO HS #30 caps 03/21/24 release foam bandage 4 X 4 (Mepilex) #5 ea 03/21/24 gabapentin 100 mg capsule 100 mg PO HS PRN Neruopathy #30 03/21/24 (Neurontin) caps honey 80 % topical gel (MediHoney 1 applic topical Q OTHER DAY #44 mL 03/21/24 (honey)) iodoform 1/2 X 5 yard bandage #12 ea 03/21/24 nystatin 100,000 unit/gram topical 1 applic topical BID #30 grams 03/21/24 powder potassium chloride 10 mEq 20 meq (2 x 10 mEq) PO DAILY #30 03/21/24 capsule,extended release caps sennosides 8.6 mg tablet (Senna 8.6 mg PO BID #60 tabs 03/21/24 Lax) tamsulosin 0.4 mg capsule 0.8 mg (2 x 0.4 mg) PO DAILY #60 03/21/24 caps doxycycline hyclate 100 mg capsule 100 mg PO BID #14 caps 03/28/24 Allergies Allergy/AdvReac Type Severity Reaction Status Date / Time hydrocodone Allergy Intermediate Hallucinati Verified 04/03/24 07:34 ng oxycodone Allergy Intermediate Hallucinati Verified 04/03/24 07:34 ng Review of Systems Status of ROS: Reports: 6 or more systems reviewed and unremarkable except as noted in History and below [facility] Medical History POLST (Physician Orders for Life-Sustaining Treatment) ?Z78.9 - Other specified health status (ICD-10) Health care directive on file ?Z78.9 - Other specified health status (ICD-10) Urinary retention ?R33.9 - Retention of urine, unspecified (ICD-10) Peripheral neuropathy ?G62.9 - Polyneuropathy, unspecified (ICD-10) Situational mixed anxiety and depressive disorder ?F43.23 - Adjustment disorder with mixed anxiety and depressed mood (ICD-10) Discharge planning issues ?Z75.8 - Other problems related to medical facilities and other health care (ICD-10) First degree AV block ?I44.0 - Atrioventricular block, first degree (ICD-10) Sinus bradycardia ?R00.1 - Bradycardia, unspecified (ICD-10) UTI (urinary tract infection) ?N39.0 - Urinary tract infection, site not specified (ICD-10) Neuropathy ?G62.9 - Polyneuropathy, unspecified (ICD-10) History of renal calculi ?Z87.442 - Personal history of urinary calculi (ICD-10) History of malignant neoplasm of bladder (2010) ?Z85.51 - Personal history of malignant neoplasm of bladder (ICD-10) PVD (peripheral vascular disease) ?I73.9 - Peripheral vascular disease, unspecified (ICD-10) Rash ?R21 - Rash and other nonspecific skin eruption (ICD-10) Disability Rash ?R21 - Rash and other nonspecific skin eruption (ICD-10) Bladder cancer ?C67.9 - Malignant neoplasm of bladder, unspecified (ICD-10) BPH (benign prostatic hyperplasia) ?N40.0 - Benign prostatic hyperplasia without lower urinary tract symptoms (ICD-10) Lower extremity edema ?R60.0 - Localized edema (ICD-10) Muscular dystrophy ?G71.00 - Muscular dystrophy, unspecified (ICD-10) Fall ?W19.XXXA - Unspecified fall, initial encounter (ICD-10) Surgical History History of lumbosacral spine surgery ?Z98.890 - Other specified postprocedural states (ICD-10) History of nasal septoplasty ?Z98.890 - Other specified postprocedural states (ICD-10) 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 He does not smoke. History of daily alcohol intake but less than that more recently. is healthcare power of assistant district attorney. Code status is DNR. What is your current living situation?: I presently have a place to live Problems where you live: no known problems Problems where you live details: n/a In the past 12 months, utilities in danger of being shut off: no In past 12 months, lack of transportation kept you from medical appts, meetings, work, or getting things needed for daily living: no In the past 12 mos, have been you worried that your food would run out before you had money to buy more?: never true In the past 12 mos, the food you bought just didn't last and you didn't have money to buy more?: never true Highest level of school completed/degree received: Master's degree Smoking Status: Former smoker Do you use any of these nicotine containing products: None Second hand tobacco smoke exposure: No How often do you have a drink containing alcohol: monthly or less How many standard drinks containing alcohol do you have on a typical day: 1 or 2 How often do you have six or more drinks on one occasion: Never AUDIT-C Alcohol total score: 1 Non-prescribed substance use: denies use Caffeine: Yes (coffee in am) How often does anyone, including family, friends and others, physically hurt you : never How often does anyone, including family, friends and others, insult or talk down to you: never How often does anyone, including family, friends and others, threaten you with harm: never How often does anyone, including family, friends and others, scream or curse at you: never Little interest or pleasure in doing things: not at all Feeling down, depressed, or hopeless: not at all service: No Exam Narrative: Exam Narrative: Very pleasant man. NAD. Breathing easily. Abdomen is soft. Overweight. Right arm is well-bandaged. I do not see any inflammatory changes adjacent to dressing. Did not remove the dressings. Rob is draining rather dark yellow urine. He did request evaluation also for sacral wound. Mepilex dressing is present. Feeling this back reveals very faint erythema generally. No skin breakdown apparent. Const: Vital Signs, click to edit/add: Vital Signs - 24 hr 04/03/24 07:28 Temperature 97.1 F L Pulse Rate [Pulse Oximeter] 71 Respiratory Rate 16 Blood Pressure [Le ft Upper Arm] 156/82 H Pulse Oximetry 96 Oxygen Delivery Me thod Room Air Documenting provider has reviewed patient's vital signs: yes Course Vital Signs Vital signs: Initial Vital Signs Temperature 97.1 F L 04/03/24 07:28 Temperature Source Temporal Artery Scan 04/03/24 07:28 Pulse Rate 71 04/03/24 07:28 Respiratory Rate 16 04/03/24 07:28 Blood Pressure 156/82 H 04/03/24 07:28 Blood Pressure Mean 106 H 04/03/24 07:28 Blood Pressure Position Supine 04/03/24 07:28 Pulse Oximetry 96 04/03/24 07:28 Oxygen Delivery Method Room Air 04/03/24 07:28 Vital Signs Temperature 97.1 F L 04/03/24 07:28 Pulse Rate 71 04/03/24 07:28 Respiratory Rate 16 04/03/24 07:28 Blood Pressure 156/82 H 04/03/24 07:28 Pulse Oximetry 96 04/03/24 07:28 Oxygen Delivery Method Room Air 04/03/24 07:28 Temperature 97.1 F L 04/03/24 07:28 Pulse Rate 71 04/03/24 07:28 Respiratory Rate 16 04/03/24 07:28 Blood Pressure 156/82 H 04/03/24 07:28 Pulse Oximetry 96 04/03/24 07:28 Oxygen Delivery Method Room Air 04/03/24 07:28 Medical Decision Making MDM Narrative Medical decision making narrative: Nursing has permission to place a catheter prior me fully assessing patient. This has been done. My understanding has drained already a L. He notes himself to be markedly improved --pain from a 12 now to a 2. Urinalysis pending Urinalysis shows small blood but otherwise no evidence of infection. Would anticipate this catheter remaining in for longer period of time at this point. See patient discharge plan for further discussion/plan. Medical Records Medical records reviewed: Yes I reviewed the patient's medical records Lab Data Lab results reviewed: Yes I reviewed the patient's lab results Labs: Lab Results 04/03/24 Range/Units 07:38 Urine Color Yellow (Yellow) Urine Appearance Clear (Clear) Urine pH 6.5 (5.0-8.5) Ur Specific Cold[place] 1.020 (1.000-1.030) Urine Protein Negative (Negative) Urine Glucose (UA) Negative (Negative) Urine Ketones Negative (Negative) Urine Blood 1+ A (Negative) Urine Nitrite Negative (Negative) Urine Bilirubin Negative (Negative) Urine Urobilinogen 0.2 (0.2-1.0) Ur Leukocyte Esterase Negative (Negative) Urine RBC 2-5 A (0-2) Urine WBC 0-2 (0-5) Ur Squamous Epith Cells None (None-Few) Urine Bacteria Few A (None) Discharge Plan Discharge Clinical Impression: Urinary retention Patient Disposition: Home w/ Parent or Adult Condition: Improved Instructions: Urinary Retention in Men (ED) Additional Instructions: It does not look as though there is an infection in your urine at this time. We will culture your urine however. At this point I would follow-up for consideration of catheter removal in 4-5 days. Would recheck sacral area every 2 days. Prescriptions: No Action doxycycline hyclate 100 mg capsule 100 mg PO BID Qty: 14 0RF acetaminophen 500 mg capsule 500 - 1,000 mg PO Q4-6H MDD 4000 mg per day PRNQty: 100 0RF sennosides [Senna Lax] 8.6 mg Tablet 8.6 mg PO BID Qty: 60 0RF potassium chloride 10 mEq Capsule, Extended Release 20 meq PO DAILY Qty: 30 0RF nystatin 100,000 unit/gram Powder 1 applic topical BID Qty: 30 0RF duloxetine 30 mg Capsule,Delayed Release(Dr/Ec) 30 mg PO HS Qty: 30 0RF tamsulosin 0.4 mg capsule 0.8 mg PO DAILY Qty: 60 0RF gabapentin [Neurontin] 100 mg capsule 100 mg PO HS PRN (Reason: Neruopathy) Qty: 30 0RF (DME) iodoform 1/2 X 5 -yard bandage See Rx Instructions .Route Qty: 12 0RF Rx Instructions: As directed MediHoney (honey) 80 % gel 1 applic topical Q OTHER DAY Qty: 44 0RF (DME) Mepilex 4 X 4 bandage See Rx Instructions .Route Qty: 5 0RF Rx Instructions: As directed furosemide [Lasix] 80 mg tablet 80 mg PO QAM Qty: 90 0RF Follow Up/Referrals: Carlos Cardenas MD [Primary Care Provider] - Stand Alone Forms: GOOD Info Instructions
[2024-04-03 07:47] LABS: Appearance Urine Clear (Clear); Bilirubin Urine Negative (Negative); Blood Urine 1+ (Negative); Color Urine Yellow (Yellow); Glucose Urine Negative (Negative); Ketones Urine Negative (Negative); Leukocyte Esterase Urine Negative (Negative); Nitrite Urine Negative (Negative); Protein Urine Negative (Negative); Urobilinogen Urine 0.2 (0.2-1.0); pH Urine 6.5 (5.0-8.5)
[2024-04-03 07:58] LABS: Bacteria Urine Few; WBC Urine 0-2 (0-5)
--- OUTSIDE RECORDS SUMMARY | 2024-04-03 08:01 | XMS_ITS | Continuity of Care Document ---
Author Name Unknown Organization Z [facility] Address [address] [place] [address] Phone Care Team Providers Care Forest Products Gatherer Name Role Phone Unavailable Unavailable Unavailable Advance Directives Directive Yes / No Effective Date File Name No Information Encounters Encounter Description Practice Location Reason(s) For Visit Diagnoses Date Provider Providers Copied on Encounter Z [facility], [address], [place], [address], [place] tel:[phone] [facility] - [facility] No Information Mar-0 6-200 9 No Information Family History Family Member Type Diagnosis Age At Onset No Information Payers Payer name Insurance type Covered democrat ID Authoriza tion(s) Medicare MB [id number] [facility] Ins CI [id number] Social History Type Description Quantity Date Captured [...]
--- OUTSIDE RECORDS SUMMARY | 2024-04-03 08:01 | XMS_ITS | Clinical Summary ---
Author Name Unknown Organization [facility] Address [place], [place] [address] Care Team Providers Care Laborer General Name Role Phone Carlos Cardenas MD Primary Care Provider [phone] Allergies Active Allergy Reactions Criticality Noted Date [...] Comments Blood Pressure 140/62 10/07/2022 4:12 PM BATCHING OPERATOR Pulse 57 10/07/2022 4:12 PM BATCHING OPERATOR Temperature 36.9 ??C (98.5 ??F) 10/07/2022 4:12 PM CS T Respiratory Rate 16 10/05/2022 9:05 AM BATCHING OPERATOR Oxygen Saturation 99% 10/07/2022 4:12 PM BATCHING OPERATOR Inhaled Oxygen Concentration - - Weight [...] Influenza for age 65+ 07/16/2024 Care Teams Laborer General Relationship Specialty Start Date End Date Carlos Cardenas MD [address] [place] [address] PCP - General 10/12/07
== END 2024-04-03 08:41 | disposition home or self-care (01) ==
PROVIDERS: Emergency Provider Family Medicine; PCP Internal Medicine
DX: R33.9 Retention of urine, unspecified (principal); B96.5 Pseudomonas (aeruginosa) (mallei) (pseudomallei) as the cause of diseases classified elsewhere
CPT/HCPCS: 51702; 81001; 81003; 87086; 87186; 99283; 99284

== ENCOUNTER 2024-04-03 08:37 | Outpatient (CLI) | payer OTHER, SELFPAY ==
--- OUTSIDE RECORDS SUMMARY | 2024-04-06 11:04 | XMS_ITS | Continuity of Care Document ---
Author Organization Z [facility] Address [address] [place] [address] Phone Care Team Providers Care Office Director Name Role Phone Unavailable Unavailable Unavailable Advance Directives Directive Yes / No Effective Date File Name No Information Encounters Encounter Description Practice Location Reason(s) For Visit Diagnoses Date Provider Providers Copied on Encounter Z [facility], [address], [place], [address], [place] tel:[phone] [facility] - [place] No Information Mar-0 6-200 9 No Information Family History Family Member Type Diagnosis Age At Onset No Information Payers Payer name Insurance type Covered democrat ID Authoriza tion(s) Medicare MB [id number] [facility] CI [id number] Social History Type Description Quantity Date Captured [...]
== END 2024-04-03 08:38 | disposition home or self-care (01) ==
LOC: AMB 04-06 11:02
PROVIDERS: PCP Internal Medicine; Visit Provider Family Medicine
DX: R33.9 Retention of urine, unspecified (principal); Z46.6 Encounter for fitting and adjustment of urinary device
CPT/HCPCS: A0425; A0428

== ENCOUNTER 2024-04-04 11:40 | Outpatient (REF) | payer OTHER, SELFPAY ==
--- OUTSIDE RECORDS SUMMARY | 2024-04-04 11:42 | XMS_ITS | Clinical Summary ---
Author Name Unknown Organization [facility] Address [place], [place] [address] Care Team Providers Care Reforestation Worker Name Role Phone Carlos Cardenas MD Primary [...] Comments Blood Pressure 140/62 10/07/2022 4:12 PM ENTERPRISE SYSTEMS ADMINISTRATOR Pulse 57 10/07/2022 4:12 PM ENTERPRISE SYSTEMS ADMINISTRATOR Temperature 36.9 ??C (98.5 ??F) 10/07/2022 4:12 PM CS T Respiratory Rate 16 10/05/2022 9:05 AM ENTERPRISE SYSTEMS ADMINISTRATOR Oxygen Saturation 99% 10/07/2022 4:12 PM ENTERPRISE SYSTEMS ADMINISTRATOR Inhaled Oxygen Concentration - - Weight 86.4 [...] Influenza for age 65+ 07/16/2024 Care Teams Reforestation Worker Relationship Specialty Start Date End Date Carlos Cardenas MD [address] [place] [address] PCP - General 10/12/07
--- OUTSIDE RECORDS SUMMARY | 2024-04-04 11:42 | XMS_ITS | Continuity of Care Document ---
Author Name Unknown Organization Z [facility] Address [address] [place] [address] Phone Care Team Providers Care Eating Disorder Psychologist Name Role Phone Unavailable Unavailable Unavailable Advance Directives Directive Yes / No Effective Date File Name No Information Encounters Encounter Description Practice Location Reason(s) For Visit Diagnoses Date Provider Providers Copied on Encounter Z [facility], [address], [place], [address], [place] tel:[phone] [facility] - [facility] No Information Mar-0 6-200 9 No Information Family History Family Member Type Diagnosis Age At Onset No Information Payers Payer name Insurance type Covered democrat ID Authoriza tion(s) Medicare MB [id number] [facility] Ins CI [id number] Social History Type Description Quantity Date Captured [...]
[2024-04-04 12:03] LABS: Basophils Percent Auto 0.2 % (0.0-3.0); Eosinophils Percent Auto 0.1 % (0.0-7.0); Hematocrit 38.4 % (37.0-53.0); Hemoglobin* 12.3 gm/dL (13.5-17.5); Immature Granulocytes Pct Auto 0.5 %; Lymphocytes Percent Auto 14.1 % (20-44); Mean Corpuscular HGB Conc 32 gm/dL (32-36); Mean Corpuscular Hemoglobin 31 pg (26-34); Mean Corpuscular Volume 98 fL (80-100); Monocytes Percent Auto 7.6 % (0.0-11.0); Neutrophils Percent Auto 77.5 % (42.0-72.0); Platelet Count* 325 K/uL (140-440); RDW Coefficient of Variation % 14.6 % (11.5-15.5); Red Blood Count 3.93 m/uL (4.30-5.90); White Blood Count* 17.41 K/uL (4.50-11.00)
[2024-04-04 12:06] LABS: Slide Review Reflex No
[2024-04-04 12:23] LABS: Chloride* 97 mmol/L (96-114); Sodium* 136 mmol/L (135-149)
[2024-04-04 12:25] LABS: Creatinine* 0.7 mg/dL (0.5-1.5); Estimated Glomerular Filt Rate 91 ml/min
[2024-04-04 12:26] LABS: Anion Gap 9 mEq/L (7-15); Blood Urea Nitrogen* 20 mg/dL (7-30); Calcium* 9.2 mg/dL (8.4-10.6); Carbon Dioxide* 30 mmol/L (20-32); Glucose* 97 mg/dL (60-115)
== END 2024-04-04 11:41 | disposition home or self-care (01) ==
LOC: NPINS 11:40
PROVIDERS: PCP Internal Medicine; Visit Provider Internal Medicine
DX: E78.5 Hyperlipidemia, unspecified (principal); N40.0 Benign prostatic hyperplasia without lower urinary tract symptoms
CPT/HCPCS: 80048; 85025

== ENCOUNTER 2024-04-19 21:57 | Outpatient (CLI) | payer OTHER, SELFPAY ==
--- OUTSIDE RECORDS SUMMARY | 2024-05-02 20:13 | XMS_ITS | Continuity of Care Document ---
Author Organization Z [facility] Address [address] [place] [address] Phone Care Team Providers Care Retail And Restaurant Associate Name Role Phone Unavailable Unavailable Unavailable Advance Directives Directive Yes / No Effective Date File Name No Information Encounters Encounter Description Practice Location Reason(s) For Visit Diagnoses Date Provider Providers Copied on Encounter Z [facility], [address], [place], [address], [place] tel:[phone] [facility] [place] No Information Mar-0 6-200 9 No Information Family History Family Member Type Diagnosis Age At Onset No Information Payers Payer name Insurance type Covered alliance party ID Authoriza tion(s) Medicare MB [id number] [facility] CI [id number] Social History Type Description Quantity Date Captured [...]
--- OUTSIDE RECORDS SUMMARY | 2024-05-02 20:13 | XMS_ITS | Clinical Summary ---
Author Organization [facility] Address [place], [place] [address] Care Team Providers Care Assembler Truck Trailer Name Role Phone Carlos Cardenas MD Primary [...] Comments Blood Pressure 140/62 10/07/2022 4:12 PM HAIRSPRING CUTTER Pulse 57 10/07/2022 4:12 PM HAIRSPRING CUTTER Temperature 36.9 ??C (98.5 ??F) 10/07/2022 4:12 PM CS T Respiratory Rate 16 10/05/2022 9:05 AM HAIRSPRING CUTTER Oxygen Saturation 99% 10/07/2022 4:12 PM HAIRSPRING CUTTER Inhaled Oxygen Concentration - - Weight 86.4 [...] Influenza for age 65+ 07/16/2024 Care Teams Assembler Truck Trailer Relationship Specialty Start Date End Date Carlos Cardenas MD 1999 [facility] [place] [address] [facility] - General 10/12/07
== END 2024-04-19 21:58 | disposition home or self-care (01) ==
LOC: AMB 05-02 20:11
PROVIDERS: PCP Internal Medicine; Visit Provider Emergency Medicine
DX: R53.1 Weakness (principal)
CPT/HCPCS: A0998

== ENCOUNTER 2024-04-28 05:57 | Outpatient (CLI) | payer OTHER, SELFPAY ==
--- OUTSIDE RECORDS SUMMARY | 2024-04-28 05:59 | XMS_ITS | Continuity of Care Document ---
Author Organization Z [facility] Address [address] [place] [address] Phone Care Team Providers Care Transmission Supervisor Name Role Phone Unavailable Unavailable Unavailable Advance Directives Directive Yes / No Effective Date File Name No Information Encounters Encounter Description Practice Location Reason(s) For Visit Diagnoses Date Provider Providers Copied on Encounter Z [facility], [address], [place], [address], [place] tel:[phone] [facility] [place] No Information Mar-0 6-200 9 No Information Family History Family Member Type Diagnosis Age At Onset No Information Payers Payer name Insurance type Covered green party ID Authoriza tion(s) Medicare MB [id number] [facility] Ins [place] [id number] Social History Type Description Quantity Date Captured [...]
--- OUTSIDE RECORDS SUMMARY | 2024-04-28 05:59 | XMS_ITS | Clinical Summary ---
Author Organization [facility] Address [place], [place] [address] Care Team Providers Care Predictive Maintenance Technician Name Role Phone Carlos Cardenas MD Primary [...] Comments Blood Pressure 140/62 10/07/2022 4:12 PM MARKETING REPS SPORTS AND ENTERTAINMENT Pulse 57 10/07/2022 4:12 PM MARKETING REPS [employer] ENTERTAINMENT Temperature 36.9 ??C (98.5 ??F) 10/07/2022 4:12 PM CS T Respiratory Rate 16 10/05/2022 9:05 AM MARKETING [employer] ENTERTAINMENT Oxygen Saturation 99% 10/07/2022 4:12 PM MARKETING [employer] ENTERTAINMENT Inhaled Oxygen Concentration - - Weight 86.4 [...] Influenza for age 65+ 07/16/2024 Care Teams Predictive Maintenance Technician Relationship Specialty Start Date End Date Carlos Cardenas MD 1999 [facility] [place] [address] [facility] - General 10/12/07
== END 2024-04-28 05:58 | disposition home or self-care (01) ==
LOC: NFLDREF 05:58
PROVIDERS: PCP Internal Medicine; Visit Provider Family Medicine
DX: N30.00 Acute cystitis without hematuria (principal)
CPT/HCPCS: 87086; 87186

== ENCOUNTER 2024-05-17 14:52 | Outpatient (CLI) | payer OTHER, SELFPAY ==
--- OUTSIDE RECORDS SUMMARY | 2024-05-19 05:52 | XMS_ITS | Continuity of Care Document ---
Author Organization Z [facility] Address [address] [place] [address] Phone Care Team Providers Care Airfield Operations Specialist Name Role Phone Unavailable Unavailable Unavailable Advance Directives Directive Yes / No Effective Date File Name No Information Encounters Encounter Description Practice Location Reason(s) For Visit Diagnoses Date Provider Providers Copied on Encounter Z [facility], [address], [place], [address], [place] tel:[phone] [facility] [place] No Information Mar-0 6-200 9 No Information Family History Family Member Type Diagnosis Age At Onset No Information Payers Payer name Insurance type Covered libertarian ID Authoriza tion(s) Medicare MB [id number] Board Of [employer] [facility] Ins [place] [id number] Social History Type Description Quantity Date Captured [...]
--- OUTSIDE RECORDS SUMMARY | 2024-05-19 05:53 | XMS_ITS | Clinical Summary ---
Author Organization [facility] Address [place], [place] [address] Care Team Providers Care Steam Shovel Engineer Name Role Phone Carlos Cardenas MD Primary Care Provider [phone] Allergies Active Allergy Reactions Criticality Noted Date [...] Comments Blood Pressure 140/62 10/07/2022 4:12 PM REMEDY DEVELOPER Pulse 57 10/07/2022 4:12 PM REMEDY DEVELOPER Temperature 36.9 ??C (98.5 ??F) 10/07/2022 4:12 PM CS T Respiratory Rate 16 10/05/2022 9:05 AM REMEDY DEVELOPER Oxygen Saturation 99% 10/07/2022 4:12 PM REMEDY DEVELOPER Inhaled Oxygen Concentration - - Weight 86.4 [...] Influenza for age 65+ 07/16/2024 Care Teams Steam Shovel Engineer Relationship Specialty Start Date End Date Carlos Cardenas MD 1999 [facility] [place] [address] [facility] - General 10/12/07
== END 2024-05-17 14:53 | disposition home or self-care (01) ==
LOC: NFLDREF 05-19 05:51
PROVIDERS: PCP Internal Medicine; Referring Provider Internal Medicine; Visit Provider Internal Medicine
DX: R39.89 Other symptoms and signs involving the genitourinary system (principal); R33.9 Retention of urine, unspecified
CPT/HCPCS: 87086

== ENCOUNTER 2024-06-09 07:49 | Outpatient (CLI) | payer OTHER, SELFPAY ==
--- OUTSIDE RECORDS SUMMARY | 2024-06-09 07:51 | XMS_ITS | Continuity of Care Document ---
Author Organization Z [facility] Address [address] [place] [address] Phone Care Team Providers Care Customer Response Representative Name Role Phone Unavailable Unavailable Unavailable Advance Directives Directive Yes / No Effective Date File Name No Information Encounters Encounter Description Practice Location Reason(s) For Visit Diagnoses Date Provider Providers Copied on Encounter Z [facility], [address], [place], [address], [place] tel:[phone] [facility] [place] No Information Mar-0 6-200 9 No Information Family History Family Member Type Diagnosis Age At Onset No Information Payers Payer name Insurance type Covered green party ID Authoriza tion(s) Medicare MB [id number] [facility] Ins [place] [id number] Social History Type Description Quantity Date Captured [...]
--- OUTSIDE RECORDS SUMMARY | 2024-06-09 07:51 | XMS_ITS | Clinical Summary ---
Author Organization [facility] Address [place], [place] [address] Care Team Providers Care Electro Plater Name Role Phone Carlos Cardenas MD Primary Care Provider [phone] Allergies Active Allergy Reactions Criticality Noted Date [...] Comments Blood Pressure 140/62 10/07/2022 4:12 PM RADIOSONDE OPERATOR Pulse 57 10/07/2022 4:12 PM RADIOSONDE OPERATOR Temperature 36.9 ??C (98.5 ??F) 10/07/2022 4:12 PM CS T Respiratory Rate 16 10/05/2022 9:05 AM RADIOSONDE OPERATOR Oxygen Saturation 99% 10/07/2022 4:12 PM RADIOSONDE OPERATOR Inhaled Oxygen Concentration - - Weight [...] Influenza for age 65+ 07/16/2024 Care Teams Electro Plater Relationship Specialty Start Date End Date Carlos Cardenas MD 1999 [facility] [place] [address] [facility] - General 10/12/07
== END 2024-06-09 07:50 | disposition home or self-care (01) ==
LOC: WOUND 07:50
PROVIDERS: PCP Internal Medicine; Visit Provider Nurse Practitioner Family
DX: L89.313 Pressure ulcer of right buttock, stage 3 (principal); S21.201A Unspecified open wound of right back wall of thorax without penetration into thoracic cavity, initial encounter; G71.09 Other specified muscular dystrophies
CPT/HCPCS: 97597; G0463

== ENCOUNTER 2024-06-15 08:24 | Outpatient (CLI) | payer OTHER, SELFPAY ==
--- OUTSIDE RECORDS SUMMARY | 2024-06-15 08:28 | XMS_ITS | Clinical Summary ---
Author Organization [facility] Address [place], [place] [address] Care Team Providers Care Pile Driver Name Role Phone Carlos Cardenas MD Primary [...] Comments Blood Pressure 140/62 10/07/2022 4:12 PM AUDIOMETRIST Pulse 57 10/07/2022 4:12 PM AUDIOMETRIST Temperature 36.9 ??C (98.5 ??F) 10/07/2022 4:12 PM CS T Respiratory Rate 16 10/05/2022 9:05 AM AUDIOMETRIST Oxygen Saturation 99% 10/07/2022 4:12 PM AUDIOMETRIST Inhaled Oxygen Concentration - - Weight 86.4 [...] Influenza for age 65+ 07/16/2024 Care Teams Pile Driver Relationship Specialty Start Date End Date Carlos Cardenas MD 1999 [facility] [place] [address] [facility] - General 10/12/07
--- OUTSIDE RECORDS SUMMARY | 2024-06-15 08:28 | XMS_ITS | Continuity of Care Document ---
Author Organization Z [facility] Address [address] [place] [address] Phone Care Team Providers Care Wool Spotter Name Role Phone Unavailable Unavailable Unavailable Advance Directives Directive Yes / No Effective Date File Name No Information Encounters Encounter Description Practice Location Reason(s) For Visit Diagnoses Date Provider Providers Copied on Encounter Z [facility], [address], [place], [address], [place] tel:[phone] [facility] [place] No Information Mar-0 6-200 9 No Information Family History Family Member Type Diagnosis Age At Onset No Information Payers Payer name Insurance type Covered constitution party ID Authoriza tion(s) Medicare MB [id number] Board Of [facility] Ins CI [id number] Social History Type Description Quantity Date Captured [...]
== END 2024-06-15 08:25 | disposition home or self-care (01) ==
PROVIDERS: PCP Internal Medicine; Visit Provider Nurse Practitioner Family
DX: L89.313 Pressure ulcer of right buttock, stage 3 (principal); L98.9 Disorder of the skin and subcutaneous tissue, unspecified; B36.9 Superficial mycosis, unspecified; G71.09 Other specified muscular dystrophies
CPT/HCPCS: 11042; 97597

== ENCOUNTER 2024-06-22 09:45 | Outpatient (CLI) | payer OTHER, SELFPAY ==
--- OUTSIDE RECORDS SUMMARY | 2024-06-22 09:46 | XMS_ITS | Clinical Summary ---
Author Organization [email or web address] Address [place], [place] [address] Care Team Providers Care Tunnel Mucker Name Role Phone Carlos Cardenas MD Primary [...] Comments Blood Pressure 140/62 10/07/2022 4:12 PM HONEYCOMB DECAPPER Pulse 57 10/07/2022 4:12 PM HONEYCOMB DECAPPER Temperature 36.9 ??C (98.5 ??F) 10/07/2022 4:12 PM CS T Respiratory Rate 16 10/05/2022 9:05 AM HONEYCOMB DECAPPER Oxygen Saturation 99% 10/07/2022 4:12 PM HONEYCOMB DECAPPER Inhaled Oxygen Concentration - - Weight 86.4 [...] Influenza for age 65+ 07/16/2024 Care Teams Tunnel Mucker Relationship Specialty Start Date End Date Carlos Cardenas MD 1999 [facility] [place] [address] [facility] - General 10/12/07
--- OUTSIDE RECORDS SUMMARY | 2024-06-22 09:46 | XMS_ITS | Continuity of Care Document ---
Author Organization Z [facility] Address [address] [place] [address] Phone Care Team Providers Care Stock Car Driver Name Role Phone Unavailable Unavailable Unavailable Advance Directives Directive Yes / No Effective Date File Name No Information Encounters Encounter Description Practice Location Reason(s) For Visit Diagnoses Date Provider Providers Copied on Encounter Z [facility], [address], [place], [address], [place] tel:[phone] [facility] [place] No Information Mar-0 6-200 9 No Information Family History Family Member Type Diagnosis Age At Onset No Information Payers Payer name Insurance type Covered libertarian ID Authoriza tion(s) Medicare MB [id number] Board Of [facility] Ins CI [id number] Social History Type Description Quantity Date Captured [...]
== END 2024-06-22 09:46 | disposition home or self-care (01) ==
LOC: WOUND 09:45
PROVIDERS: PCP Internal Medicine; Visit Provider Nurse Practitioner Family
DX: L89.313 Pressure ulcer of right buttock, stage 3 (principal); L98.9 Disorder of the skin and subcutaneous tissue, unspecified; I87.313 Chronic venous hypertension (idiopathic) with ulcer of bilateral lower extremity; L97.828 Non-pressure chronic ulcer of other part of left lower leg with other specified severity; L97.818 Non-pressure chronic ulcer of other part of right lower leg with other specified severity
CPT/HCPCS: 11042; 99214

== ENCOUNTER 2024-06-29 10:08 | Outpatient (CLI) | payer OTHER, SELFPAY ==
--- OUTSIDE RECORDS SUMMARY | 2024-06-29 10:10 | XMS_ITS | Continuity of Care Document ---
Author Organization Z [facility] Address [address] [place] [address] Phone Care Team Providers Care Partnership Marketing Manager Name Role Phone Unavailable Unavailable Unavailable Advance Directives Directive Yes / No Effective Date File Name No Information Encounters Encounter Description Practice Location Reason(s) For Visit Diagnoses Date Provider Providers Copied on Encounter Z [facility], [address], [place], [address], [place] tel:[phone] [facility] [place] No Information Mar-0 6-200 9 No Information Family History Family Member Type Diagnosis Age At Onset No Information Payers Payer name Insurance type Covered constitution party ID Authoriza tion(s) Medicare MB [id number] Board Of [facility] Ins CI [id number] Social History Type Description Quantity Date Captured [...]
--- OUTSIDE RECORDS SUMMARY | 2024-06-29 10:10 | XMS_ITS | Clinical Summary ---
Author Organization [facility] Address [place], [place] [address] Care Team Providers Care Roadway Designer Name Role Phone Carlos Cardenas MD Primary Care Provider [phone] Allergies Active Allergy Reactions Criticality Noted Date [...] Comments Blood Pressure 140/62 10/07/2022 4:12 PM SAFETY LEAD Pulse 57 10/07/2022 4:12 PM SAFETY LEAD Temperature 36.9 ??C (98.5 ??F) 10/07/2022 4:12 PM CS T Respiratory Rate 16 10/05/2022 9:05 AM SAFETY LEAD Oxygen Saturation 99% 10/07/2022 4:12 PM SAFETY LEAD Inhaled Oxygen Concentration - - Weight 86.4 [...] Influenza for age 65+ 07/16/2024 Care Teams Roadway Designer Relationship Specialty Start Date End Date Carlos Cardenas MD 1999 [facility] [place] [address] [facility] - General 10/12/07
== END 2024-06-29 10:09 | disposition home or self-care (01) ==
LOC: WOUND 10:08
PROVIDERS: PCP Internal Medicine; Visit Provider Nurse Practitioner Family
DX: I87.312 Chronic venous hypertension (idiopathic) with ulcer of left lower extremity (principal); L97.822 Non-pressure chronic ulcer of other part of left lower leg with fat layer exposed; L98.9 Disorder of the skin and subcutaneous tissue, unspecified; G71.09 Other specified muscular dystrophies; B36.9 Superficial mycosis, unspecified; S82.832A Other fracture of upper and lower end of left fibula, initial encounter for closed fracture; W22.8XXA Striking against or struck by other objects, initial encounter
CPT/HCPCS: 11042; 73610; 97597; 99283

== ENCOUNTER 2024-06-29 11:40 | Emergency (ER) | payer OTHER, SELFPAY ==
[2024-06-29 11:47] VITALS: BP 117/62; PULSE 42; RESP 18; TEMP 30.2; O2SAT 95; BMI 29.8
--- NOTE | 2024-06-29 12:10 | CRLHL7_ITS ---
For Patients: As a result of the Century Cures Act, medical imaging exams and procedure reports are released immediately into your electronic medical record. You may view this report before your referring provider. If you have questions, please contact your health care provider. Indication: injury Technique: Three views of the left ankle. Comparison: None. Findings: Minimally displaced distal fibular diaphyseal fracture with mild overlying soft tissue swelling. Trace tibiotalar joint effusion. Moderate degenerative changes of the foot. Osteopenia. Impression: Minimally displaced distal fibular diaphyseal fracture. Dictated by Herrera Bryan MD @ 06/29/2024 12:34:03 PM (Electronically Signed)
--- OUTSIDE RECORDS SUMMARY | 2024-06-29 12:17 | XMS_ITS | Continuity of Care Document ---
Author Organization Z [facility] Address [address] [place] [address] Phone Care Team Providers Care Machine Sander Name Role Phone Unavailable Unavailable Unavailable Advance Directives Directive Yes / No Effective Date File Name No Information Encounters Encounter Description Practice Location Reason(s) For Visit Diagnoses Date Provider Providers Copied on Encounter Z [facility], [address], [place], [address], [place] tel:[phone] [facility] [place] No Information Mar-0 6-200 9 No Information Family History Family Member Type Diagnosis Age At Onset No Information Payers Payer name Insurance type Covered libertarian ID Authoriza tion(s) Medicare MB [id number] Board Of [facility] Ins CI [id number] Social History Type Description Quantity Date Captured [...]
--- OUTSIDE RECORDS SUMMARY | 2024-06-29 12:17 | XMS_ITS | Clinical Summary ---
Author Organization [facility] Address [place], [place] [address] Care Team Providers Care Retort Or Condenser Press Operator Name Role Phone Carlos Cardenas MD Primary Care Provider [phone] Allergies Active Allergy Reactions Criticality Noted Date [...] Comments Blood Pressure 140/62 10/07/2022 4:12 PM EXTENSION EDUCATOR Pulse 57 10/07/2022 4:12 PM EXTENSION EDUCATOR Temperature 36.9 ??C (98.5 ??F) 10/07/2022 4:12 PM CS T Respiratory Rate 16 10/05/2022 9:05 AM EXTENSION EDUCATOR Oxygen Saturation 99% 10/07/2022 4:12 PM EXTENSION EDUCATOR Inhaled Oxygen Concentration - - Weight 86.4 [...] Influenza for age 65+ 07/16/2024 Care Teams Retort Or Condenser Press Operator Relationship Specialty Start Date End Date Carlos Cardenas MD 1999 [facility] [place] [address] [facility] - General 10/12/07
--- NOTE | 2024-06-29 13:58 | ED_ITS ---
HPI - Extremity Injury (Lower) General Date Seen: 06/29/24 Chief Complaint: Extremity Pain/Injury, Lower Stated Complaint: LT ankle injury while at wound center Time Seen by Provider: 06/29/24 11:46 Source: patient Mode of arrival: wheelchair Limitations: no limitations History of Present Illness HPI Narrative: Patient is a very nice 84-year-old man who is suffers from muscular dystrophy, he was going down to the wound care clinic when he turned the car and bumped his left ankle, and is having some pain and swelling after this occurred. He does not a lot of pain associated with this, he gets wraps on his legs, for his chronic venous stasis. Related Data Home Medications ?Medication ?Instructions ?Recorded ?Confirmed sennosides 8.6 mg capsule (senna) 8.6 mg PO QDAY PRN 04/28/24 05/17/24 Previous Rx's ?Medication ?Instructions ?Recorded acetaminophen 500 mg capsule 500 - 1,000 mg (1 - 2 x 500 mg) PO 08/21/22 Q4-6H PRN #100 caps foam bandage 4 X 4 (Mepilex) #5 ea 03/21/24 gabapentin 100 mg capsule 100 mg PO HS PRN Neruopathy #30 03/21/24 (Neurontin) caps iodoform 1/2 X 5 yard bandage #12 ea 03/21/24 furosemide 80 mg tablet (Lasix) 80 mg PO QAM Edema #90 tabs 05/17/24 sulfamethoxazole 800 1 tab PO BID #10 tabs 05/17/24 mg-trimethoprim 160 mg tablet (Bactrim DS) tamsulosin 0.4 mg capsule 0.8 mg (2 x 0.4 mg) PO DAILY #60 05/17/24 caps desonide 0.05 % topical ointment 1 applic topical TID #60 grams 05/20/24 Allergies Allergy/AdvReac Type Severity Reaction Status Date / Time hydrocodone Allergy Intermediate Hallucinati Verified 05/17/24 14:59 ng oxycodone Allergy Intermediate Hallucinati Verified 05/17/24 14:59 ng Review of Systems Status of ROS: Reports: 6 or more systems reviewed and unremarkable except as noted in History and below [facility] Medical History Hypokalemia ?E87.6 - Hypokalemia (ICD-10) POLST (Physician Orders for Life-Sustaining Treatment) ?Z78.9 - Other specified health status (ICD-10) Health care directive on file ?Z78.9 - Other specified health status (ICD-10) Urinary retention ?R33.9 - Retention of urine, unspecified (ICD-10) Peripheral neuropathy ?G62.9 - Polyneuropathy, unspecified (ICD-10) Situational mixed anxiety and depressive disorder ?F43.23 - Adjustment disorder with mixed anxiety and depressed mood (ICD-10) Discharge planning issues ?Z75.8 - Other problems related to medical facilities and other health care (ICD-10) First degree AV block ?I44.0 - Atrioventricular block, first degree (ICD-10) Sinus bradycardia ?R00.1 - Bradycardia, unspecified (ICD-10) UTI (urinary tract infection) ?N39.0 - Urinary tract infection, site not specified (ICD-10) Neuropathy ?G62.9 - Polyneuropathy, unspecified (ICD-10) History of renal calculi ?Z87.442 - Personal history of urinary calculi (ICD-10) History of malignant neoplasm of bladder (2010) ?Z85.51 - Personal history of malignant neoplasm of bladder (ICD-10) PVD (peripheral vascular disease) ?I73.9 - Peripheral vascular disease, unspecified (ICD-10) Rash ?R21 - Rash and other nonspecific skin eruption (ICD-10) Disability Rash ?R21 - Rash and other nonspecific skin eruption (ICD-10) Bladder cancer ?C67.9 - Malignant neoplasm of bladder, unspecified (ICD-10) BPH (benign prostatic hyperplasia) ?N40.0 - Benign prostatic hyperplasia without lower urinary tract symptoms (ICD-10) Lower extremity edema ?R60.0 - Localized edema (ICD-10) Muscular dystrophy ?G71.00 - Muscular dystrophy, unspecified (ICD-10) Fall ?W19.XXXA - Unspecified fall, initial encounter (ICD-10) Surgical History History of lumbosacral spine surgery ?Z98.890 - Other specified postprocedural states (ICD-10) History of nasal septoplasty ?Z98.890 - Other specified postprocedural states (ICD-10) 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. He does not smoke. History of daily alcohol intake but less than that more recently. 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 Code status is DNR. What is your current living situation?: I presently have a place to live Problems where you live: no known problems Problems where you live details: n/a In the past 12 months, utilities in danger of being shut off: no In past 12 months, lack of transportation kept you from medical appts, meetings, work, or getting things needed for daily living: no In the past 12 mos, have been you worried that your food would run out before you had money to buy more?: never true In the past 12 mos, the food you bought just didn't last and you didn't have money to buy more?: never true Highest level of school completed/degree received: Master's degree Smoking Status: Former smoker Do you use any of these nicotine containing products: None Second hand tobacco smoke exposure: No How often do you have a drink containing alcohol: monthly or less How many standard drinks containing alcohol do you have on a typical day: 1 or 2 How often do you have six or more drinks on one occasion: Never AUDIT-C Alcohol total score: 1 Non-prescribed substance use: denies use Caffeine: Yes (coffee in am) How often does anyone, including family, friends and others, physically hurt you : never How often does anyone, including family, friends and others, insult or talk down to you: never How often does anyone, including family, friends and others, threaten you with harm: never How often does anyone, including family, friends and others, scream or curse at you: never Little interest or pleasure in doing things: not at all Feeling down, depressed, or hopeless: not at all service: No Exam Narrative: Exam Narrative: He is examined in wheelchair, he is in no apparent distress, he is able to move his left leg, but there is some swelling noted the lateral margin of his left ankle, no breakage of the skin, no redness edema is noted probably 1 to 2+ bilaterally greater on the left than the right. He says he does not really stand on his left leg at all. Pulses are decreased in his left and right leg. Const: Vital Signs, click to edit/add: Vital Signs - 24 hr 06/29/24 11:47 Temperature 86.4 F L Pulse Rate [Right Pulse Oximeter] 42 L Respiratory Rate 18 Blood Pressure [Ri ght Upper Arm] 117/62 Pulse Oximetry 95 Oxygen Delivery Me thod Room Air Documenting provider has reviewed patient's vital signs: yes Course Vital Signs Vital signs: Initial Vital Signs Temperature 86.4 F L 06/29/24 11:47 Temperature Source Temporal Artery Scan 06/29/24 11:47 Pulse Rate 42 L 06/29/24 11:47 Respiratory Rate 18 06/29/24 11:47 Blood Pressure 117/62 06/29/24 11:47 Blood Pressure Mean 80 06/29/24 11:47 Blood Pressure Position Sitting 06/29/24 11:47 Pulse Oximetry 95 06/29/24 11:47 Oxygen Delivery Method Room Air 06/29/24 11:47 Vital Signs Temperature 86.4 F L 06/29/24 11:47 Pulse Rate 42 L 06/29/24 11:47 Respiratory Rate 18 06/29/24 11:47 Blood Pressure 117/62 06/29/24 11:47 Pulse Oximetry 95 06/29/24 11:47 Oxygen Delivery Method Room Air 06/29/24 11:47 Temperature 86.4 F L 06/29/24 11:47 Pulse Rate 42 L 06/29/24 11:47 Respiratory Rate 18 06/29/24 11:47 Blood Pressure 117/62 06/29/24 11:47 Pulse Oximetry 95 06/29/24 11:47 Oxygen Delivery Method Room Air 06/29/24 11:47 MDM - Extremity Injury (Lower) MDM Narrative Medical decision making narrative: X-ray show a nondisplaced lateral oblique fibular fracture, with no angulation or displacement, bones are generally osteopenic, he is placed in a cam boot. He will get a follow-up appointment with Orthopedics, Tylenol be for the discomfort, he was comfortable with this plan. Medical Records Attestation: I reviewed the patient's medical records. Discharge Plan Discharge Clinical Impression: Closed fracture of left distal fibula Patient Disposition: Home w/ Parent or Adult Condition: Stable Instructions: Leg Fracture (ED) Additional Instructions: Home rest, cam walker, follow-up with orthopedics for appointment next week, Tylenol 1000 mg up to 3 times a day for pain. Follow up appointment scheduled July 11 at 1:20PM. Arrive at 1 PM and bring Medicare card. [facility] [address] [place] [id number] Activity Level: Light activity Prescriptions: No Action senna 8.6 mg capsule 8.6 mg PO QDAY PRN sulfamethoxazole-trimethoprim [Bactrim DS] 800-160 mg tablet 1 tab PO BID Qty: 10 0RF acetaminophen 500 mg capsule 500 - 1,000 mg PO Q4-6H MDD 4000 mg per day PRNQty: 100 0RF gabapentin [Neurontin] 100 mg capsule 100 mg PO HS PRN (Reason: Neruopathy) Qty: 30 0RF (DME) iodoform 1/2 X 5 -yard bandage See Rx Instructions .Route Qty: 12 0RF Rx Instructions: As directed (DME) Mepilex 4 X 4 bandage See Rx Instructions .Route Qty: 5 0RF Rx Instructions: As directed furosemide [Lasix] 80 mg tablet 80 mg PO QAM Qty: 90 3RF tamsulosin 0.4 mg capsule 0.8 mg PO DAILY Qty: 60 3RF desonide 0.05 % ointment 1 applic topical TID Qty: 60 0RF Follow Up/Referrals: Carlos Cardenas MD [Primary Care Provider] - Stand Alone Forms: [employer] Info Instructions
== END 2024-06-29 13:20 | disposition home or self-care (01) ==
PROVIDERS: Emergency Provider Family Medicine; PCP Internal Medicine
DX: S82.832A Other fracture of upper and lower end of left fibula, initial encounter for closed fracture (principal); W22.8XXA Striking against or struck by other objects, initial encounter
CPT/HCPCS: 73610; 99283

== ENCOUNTER 2024-07-06 10:53 | Outpatient (CLI) | payer OTHER, SELFPAY ==
--- OUTSIDE RECORDS SUMMARY | 2024-07-06 10:57 | XMS_ITS | Continuity of Care Document ---
Author Organization [facility] Address [address] [place] [address] Phone Care Team Providers Care Operations Manager Assistant Name Role Phone Unavailable Unavailable Unavailable Advance Directives Directive Yes / No Effective Date File Name No Information Encounters Encounter Description Practice Location Reason(s) For Visit Diagnoses Date Provider Providers Copied on Encounter [facility], [address], [place], [address], [place] tel:[phone] [facility] [place] No Information Mar-[id number] [id number] No Information Family History Family Member Type Diagnosis Age At Onset No Information Payers Payer name Insurance type Covered green party ID Authoriza tion(s) Medicare [place] [id number] [facility] [place] [id number] Social History Type Description Quantity Date Captured [...]
--- OUTSIDE RECORDS SUMMARY | 2024-07-06 10:57 | XMS_ITS | Clinical Summary ---
Author Organization [facility] Address [place], [place] [address] Care Team Providers Care Washery Engineer Name Role Phone Carlos Cardenas MD [...] Comments Blood Pressure 140/62 10/07/2022 4:12 PM [employer] Pulse 57 10/07/2022 4:12 PM [employer] Temperature 36.9 ??C (98.5 ??F) 10/07/2022 4:12 PM CS T Respiratory Rate 16 10/05/2022 9:05 AM [employer] Oxygen Saturation 99% 10/07/2022 4:12 PM [employer] Inhaled Oxygen Concentration - - Weight 86.4 [...] Influenza for age 65+ 07/16/2024 Care Teams Washery Engineer Relationship Specialty Start Date End Date Carlos Cardenas MD [address] [facility] KYLIE PLATT [id number] [facility] - General 10/12/07
== END 2024-07-06 10:54 | disposition home or self-care (01) ==
LOC: WOUND 10:55
PROVIDERS: PCP Internal Medicine; Visit Provider Nurse Practitioner Family
DX: G71.09 Other specified muscular dystrophies (principal); L98.8 Other specified disorders of the skin and subcutaneous tissue; B36.9 Superficial mycosis, unspecified; Z99.3 Dependence on wheelchair
CPT/HCPCS: 11042